=== PATIENT | female | born 1945 | race Caucasian/White ===

== ENCOUNTER → 2016-05-09 | Outpatient (REF) | payer MEDICARE, MEDICAID ==
[~2016-05-09] MED LIST: ACCU1TAB PO; ACCU5TAB7 OR; ASPI81TA7 PO; BABY81CH OR; CALC500T49 OR; CALC600T10 PO; CARV12.5 PO; COLA100C PO; CORE6.25 OR; DEXILANT PO; DRISDOL PO; ISOS20TA3 OR; LASI40TA OR; LASI40TA PO; LIPI80TA OR; LIPI80TA PO; LOPI600T OR; NITR0.4S SL; NITR4TASL SL; OMEP20CA3 PO; PLAV75TA2 OR; PLAV75TA38 PO; SUCR1TA PO; SYNT50TA PO; TYLE325T5 PO; TYLENOL #3 OR; VITA-113 SL; VITA50003 PO
== END ==
LOC: M LAB REF 16:19
PROVIDERS: ATTEND Surgery
DX: L57.0 Actinic keratosis (principal)

== ENCOUNTER → 2016-06-12 | Outpatient (REF) | payer MEDICARE, MEDICAID ==
[2016-06-12 13:09] LABS: ALBUMIN 3.6 GM/DL (3.2-5.2); ALBUMIN/GLOBULIN RATIO 1.06 (1.00-1.93); BILIRUBIN,TOTAL 0.3 MG/DL (0.2-1.0); CALCIUM LEVEL 8.8 MG/DL (8.8-10.2); CREATININE FOR GFR 1.11 MG/DL (0.55-1.02); GLOMERULAR FILTRATION RATE 51.4 (>39); POTASSIUM SERUM 4.8 MEQ/L (3.5-5.1)
== END ==
LOC: M SFHCPLAZ 08:54
PROVIDERS: ATTEND Internal Medicine
DX: I10 Essential (primary) hypertension (principal); E78.00 Pure hypercholesterolemia, unspecified; E03.9 Hypothyroidism, unspecified

== ENCOUNTER → 2016-09-02 | Outpatient (REF) | payer MEDICARE, MEDICAID ==
[~2016-09-02] MED LIST changes: -COLA100C PO; +COLA100C3 PO
[2016-09-02 18:39] LABS: BASO % 0.9 % (0.0-1.0); EOS # 0.1 K/mm3 (0.0-0.50); EOS % 2.5 % (0.0-3.0); LARGE UNSTAINED CELL # 0.1 K/mm3 (0.0-0.4); LARGE UNSTAINED CELL % 1.8 % (0.0-4.0); LYMPH # 1.7 K/mm3 (1.5-4.5); LYMPH % 33.6 % (24.0-44.0); MEAN CORPUSCULAR HEMOGLOBIN 32.5 pg (27.0-33.0); MEAN CORPUSCULAR HGB CONC 34.1 g/dl (32.0-36.5); MEAN CORPUSCULAR VOLUME 95.4 fl (80.0-96.0); MONO # 0.4 K/mm3 (0.0-0.8); MONO % 7.3 % (0.0-5.0); NEUTROPHILS # 2.6 K/mm3 (1.8-7.7); NEUTROPHILS % 53.8 % (36.0-66.0); PLATELET COUNT, AUTOMATED 205 k/mm3 (150-450); RED CELL DISTRIBUTION WIDTH 13.9 % (11.5-14.5); WHITE BLOOD COUNT 4.8 K/mm3 (4.0-10.0)
[2016-09-02 19:19] LABS: CALCIUM LEVEL 9.1 MG/DL (8.8-10.2); CREATININE FOR GFR 1.35 MG/DL (0.55-1.02); POTASSIUM SERUM 3.9 MEQ/L (3.5-5.1)
== END ==
LOC: M SFHCPLAZ 13:38
PROVIDERS: ATTEND Physician Assistant Medical
DX: R31.9 Hematuria, unspecified (principal)

== ENCOUNTER → 2016-09-02 | Outpatient (CLI) | payer MEDICARE, MEDICAID ==
[~2016-09-02] MED LIST changes: +ACET1TAB16 PO; +ASPI1TAB15 PO; -ASPI81TA7 PO; -CALC600T10 PO; +CALC600T31 PO; +CEFT500T3; -COLA100C3 PO; +COLA100C5 PO; +FOLI400T PO; +LOSA100T36 PO; +NORCOTAB PO; +PLAV1TAB2 PO; -PLAV75TA38 PO; +VITA1CAP40 PO; +VITA200038 PO; -VITA50003 PO
--- NOTE | 2016-09-02 15:37 | REP ---
CT abdomen and pelvis without IV or oral contrast: Renal stone protocol. History: Hematuria. Comparison CT study is from June 02, 2015. Findings: Digital tobacco cutter radiograph demonstrates a normal bowel gas pattern. There are clips in the right upper quadrant. Extensive vascular calcification is seen. The lung bases are essentially clear with minimal bibasilar fibrosis. The liver and spleen are normal in size, homogeneous in texture. There are clips in the gallbladder fossa. No adrenal lesion is seen on either side. There is extensive vascular calcification in the proximal renal arteries bilaterally, left more so than right. The left kidney shows mild diffuse cortical atrophy. There is an intrarenal calculus in the lower pole collecting system of the left kidney 3 mm in diameter. No hydronephrosis is seen. Segmental renal artery calcification is seen on the left. There are multiple renal cysts noted bilaterally. The largest is on the right in the upper pole measuring 3.1 cm in greatest diameter. These cysts are unchanged from comparison CT study June 02, 2015. No pancreatic abnormality is observed. No retroperitoneal mass or adenopathy is seen. The urinary bladder is moderately distended. This fills the pelvis nearly to the level of the umbilicus. The patient is status post hysterectomy. The appendix is surgically absent as well. Small and large bowel loops are otherwise unremarkable. There are degenerative changes in the lumbar spine. Impression: 1. Intrarenal calculus lower pole left kidney, 3 mm in diameter. No hydronephrosis seen. 2. Multiple bilateral renal cysts. 3. Moderately distended urinary bladder. 4. Status post appendectomy, hysterectomy, and cholecystectomy. 5. Extensive vascular calcification including the renal arteries bilaterally. Signed by Memo Potter MD 09/02/2016 05:22 P
== END ==
LOC: M RAD 14:34
PROVIDERS: ATTEND Physician Assistant Medical
DX: R31.9 Hematuria, unspecified (principal); N20.0 Calculus of kidney; N28.1 Cyst of kidney, acquired; N32.89 Other specified disorders of bladder; I70.1 Atherosclerosis of renal artery; Z98.890 Other specified postprocedural states
CPT/HCPCS: 36415; 74176; 80048; 81001; 81002; 85025; 87086; G0463

== ENCOUNTER → 2016-09-04 | Outpatient (REF) | payer MEDICARE, MEDICAID ==
[~2016-09-04] MED LIST changes: -ACET1TAB16 PO; -ASPI1TAB15 PO; +ASPI81TA7 PO; +CALC600T10 PO; -CALC600T31 PO; -CEFT500T3; +COLA100C3 PO; -COLA100C5 PO; -FOLI400T PO; -LOSA100T36 PO; -NORCOTAB PO; -PLAV1TAB2 PO; +PLAV75TA38 PO; -VITA1CAP40 PO; -VITA200038 PO; +VITA50003 PO
== END ==
LOC: M SFHCPLAZ 09:42
PROVIDERS: ATTEND Internal Medicine
DX: R31.9 Hematuria, unspecified (principal)

== ENCOUNTER 2016-09-21 17:20 | Emergency (ER) | payer MEDICARE, MEDICAID ==
[~2016-09-21] VITALS: Ht 157.5 cm; Wt 69.0 kg
[~2016-09-21 17:20] MED LIST changes: +ASPI1TAB15 PO; -ASPI81TA7 PO; -CALC600T10 PO; +CALC600T31 PO; -COLA100C3 PO; +COLA100C5 PO; +PLAV1TAB2 PO; -PLAV75TA38 PO; +VITA1CAP40 PO; -VITA50003 PO
[2016-09-21] MEDS ORDERED: LOSA100T36 PO (17:42)
[2016-09-21] MEDS ORDERED: FOLI400T PO (17:42)
[2016-09-21] MEDS ORDERED: VITA200038 PO (17:42)
[2016-09-21] MEDS ORDERED: MORPHINE 4 MG/ML 1ML SYRINGE SQ ONE (18:45)
[2016-09-21] MEDS ORDERED: ONDANSETRON 4 MG ORAL DISINTEGRATING TAB (S0181) PO ONE (18:45)
[2016-09-21] MEDS ORDERED: ACET1TAB16 PO (19:11)
[2016-09-21] MEDS ORDERED: CEFT500T3 (19:11)
[2016-09-21] MEDS ORDERED: NORCOTAB PO (22:39)
[2016-09-21 22:45] VITALS: BP 185/77
[2016-09-21] MEDS ORDERED: NORCO 5/325MG TABLET (BULK FOR ED) PO ONE (22:45)
--- NOTE | 2016-09-22 12:12 | REP ---
AP PELVIS AND RIGHT HIP: 09/21/2016. Comparison: CT abdomen and pelvis 09/02/2016. Clinical history: Atraumatic pain. Findings: The AP pelvis shows heavy calcifications aorta and common iliac vessels and there is heavy calcification in the common femoral arteries and proximal superficial femoral arteries in the groin and thigh. Pelvic ring is intact. Pubic rami, symphysis pubis, SI joints, iliac wings and acetabuli were unremarkable. Hip joint space is symmetric and fairly well preserved. Femoral heads, necks trochanters and subtrochanteric femurs unremarkable. AP and frog-leg view of the hip joint space on the right side without significant narrowing. There is no rim osteophyte in the femoral head and only a tiny one on the acetabular roof. No destructive lesion or fracture. Impression: 1. Heavy vascular calcification iliac and femoral arteries without evidence of fracture, focal bone lesion or AVN. 2. Hip joint space is preserved with minor degenerative changes at the acetabular roof. Signed by Kishore Gale MD 09/22/2016 09:37 A
== END 2016-09-21 22:51 | disposition home or self-care (01) ==
LOC: EDBD 17:20 → M ED 20:16
DX: M25.551 Pain in right hip (principal); I10 Essential (primary) hypertension; I25.10 Atherosclerotic heart disease of native coronary artery without angina pectoris; J44.9 Chronic obstructive pulmonary disease, unspecified; D64.9 Anemia, unspecified; M48.06 Spinal stenosis, lumbar region; E78.5 Hyperlipidemia, unspecified; Z95.5 Presence of coronary angioplasty implant and graft; Z88.8 Allergy status to other drugs, medicaments and biological substances; Z88.1 Allergy status to other antibiotic agents; Z88.0 Allergy status to penicillin; Z88.2 Allergy status to sulfonamides; Z79.899 Other long term (current) drug therapy; Z79.82 Long term (current) use of aspirin

== ENCOUNTER → 2016-10-08 | Outpatient (REF) | payer MEDICARE, MEDICAID ==
[~2016-10-08] MED LIST changes: +ACET1TAB16 PO; +CEFT500T3; +FOLI400T PO; +LOSA100T36 PO; +NORCOTAB PO; +VITA200038 PO
[2016-10-08 11:29] LABS: MEAN CORPUSCULAR HEMOGLOBIN 32.5 pg (27.0-33.0); MEAN CORPUSCULAR HGB CONC 33.9 g/dl (32.0-36.5); MEAN CORPUSCULAR VOLUME 96.1 fl (80.0-96.0); RED CELL DISTRIBUTION WIDTH 13.6 % (11.5-14.5); WHITE BLOOD COUNT 6.1 K/mm3 (4.0-10.0)
[2016-10-08 11:48] LABS: ALBUMIN 3.8 GM/DL (3.2-5.2); ALBUMIN/GLOBULIN RATIO 1.12 (1.00-1.93); BILIRUBIN,TOTAL 0.4 MG/DL (0.2-1.0); CALCIUM LEVEL 9.3 MG/DL (8.8-10.2); CREATININE FOR GFR 1.25 MG/DL (0.55-1.02); GLOMERULAR FILTRATION RATE 44.8 (>39); POTASSIUM SERUM 4.3 MEQ/L (3.5-5.1); TOTAL PROTEIN 7.2 GM/DL (6.4-8.2)
== END ==
LOC: M SFHCPLAZ 08:40
PROVIDERS: ATTEND Internal Medicine
DX: E03.9 Hypothyroidism, unspecified (principal); I12.9 Hypertensive chronic kidney disease with stage 1 through stage 4 chronic kidney disease, or unspecified chronic kidney disease; N18.3 Chronic kidney disease, stage 3 (moderate); D63.1 Anemia in chronic kidney disease
CPT/HCPCS: 36415; 80053; 84443; 85027; 93005; G0463

== ENCOUNTER 2016-10-13 11:26 | Inpatient (IN) | payer MEDICARE, MEDICAID ==
[~2016-10-13] VITALS: Ht 154.9 cm; Wt 68.6 kg
[2016-10-13] MEDS ORDERED: LR 1,000 ML IV ONE (11:30)
[2016-10-13] MEDS ORDERED: CLINDAMYCIN INJ 900MG/6ML VIAL As Ordered ONE (13:06)
[2016-10-13] MEDS ORDERED: MIDAZOLAM INJ 2 MG/2 ML VIAL (J2250) As Ordered ONE (13:12)
[2016-10-13] MEDS ORDERED: fentaNYL 100 MCG/2 ML INJECTION (J3010) As Ordered ONE ×2 (13:12→15:22)
[2016-10-13] MEDS ORDERED: ceFAZolin SOD 1 GM in D5W MINI-BAG PLUS 50 ML IV ONE (13:15)
[2016-10-13] MEDS ORDERED: BUPIVACAINE/EPIN 0.25% 30 ML VIAL As Ordered ONE (13:37)
[2016-10-13] MEDS ORDERED: VANCOMYCIN 1000 MG/20 ML VIAL (J3370) As Ordered ONE (13:42)
[2016-10-13] MEDS ORDERED: VANCOMYCIN HCL 1,000 MG, VIAL MATE ADAPTER 1 EACH in D5W 250 ML IV ONE (14:00)
--- NOTE | 2016-10-13 14:15 | HPE ---
DATE OF ADMISSION: 10/13/2016 CHIEF COMPLAINT: Right hip pain. HISTORY: This is a 70-year-old woman who has had some right hip pain ongoing for a few months that got worse two or three weeks ago when she was lifting something. MRI scan was consistent with a stress fracture of the femoral neck as well some avascular necrosis (AVN). She very much wanted to proceed with open reduction internal fixation or percutaneous pinning of the right hip. She did not wish to proceed with hip replacement, which is what I recommended. She is getting around with a walker. PAST MEDICAL HISTORY: Notable for hypothyroidism, hypertension, hypercholesterolemia, lumbar spinal stenosis, chronic airway obstruction, myocardial infarction ([place]), coronary artery disease, anemia, osteoporosis, mesenteric ischemia. PAST SURGICAL HISTORY: Includes appendectomy, exploratory surgery for pelvic pain, CARLIE-BSO, cholecystectomy, heart catheterization, colonoscopy, right scapular lesion resection, cataracts, stents, celiac artery stent. FAMILY HISTORY: Father and mother , son alive with heart disease, daughter alive. SOCIAL HISTORY: She is a former smoker. She does not use alcohol or recreational drugs. She is . MEDICATIONS: Include losartan, levothyroxine, omeprazole, Lasix, Coreg, vitamin B12, Drisdol, aspirin, meclizine, nitroglycerin, ProAir HFA, Colace, calcium, Nasonex, Lipitor, Tylenol with Codeine. The patient has been on Plavix recently and has stopped it. ALLERGIES: We have listed - TRICOR, IBRUPROFEN, VIOXX, BIAXIN, LEVAQUIN, FOSAMAX, AUGMENTIN, SULFA. REVIEW OF SYSTEMS: She denies any current chest pain, shortness of breath. Denies any skin rashes. Denies any dental abnormalities. Respiratory: Denies any cough, but does have some dyspnea on exertion. Gastrointestinal: Denies any abdominal pain. Urinary: Denies dysuria. Musculoskeletal: Has had this right hip pain ongoing for some time. Neurologic: Denies any focal weakness or sensory loss. Hematologic: Is on Plavix. Gets some easy bruisability. PHYSICAL EXAMINATION: Alert, oriented, in no acute distress. HEENT: Extraocular muscles intact. Pharynx benign. Cardiac: Regular rate and rhythm. Lungs: Clear to auscultation. Abdomen: Soft, nontender. Right hip is irritable to rotation and flexion. She has symmetric leg length. She moves her feet and toes well and has grossly intact sensation distally. MRI scan showed evidence of AVN of the right hip with a compression side femoral neck stress fracture. IMPRESSION: Right hip AVN with stress fracture. I believe that her pain from the AVN has been bothering for her months and that the stress fracture pain has been over the past 2-3 weeks. I had recommended and again today talked to her about a total hip replacement, which I think would be the most definitive thing and would probably provide her with more pain relief. She is adamant that we just fix the fracture with the screws. She says she does not want to go through a hip replacement. She has known people who have had to do that and does not think she can tolerate it. The pinning would be a smaller surgery. Per her request, will proceed with percutaneous pinning of the right hip with three cannulated screws. I will likely use a drill before placing these screws to try to decompress some of the femoral head marrow, perhaps providing her with some pain relief. She understands the nature this and the risks of bleeding, infection, damage to nerves, vessels, persistent pain, malunion, nonunion, loss of reduction, blood clots, medical problems, among others. A preop clearance was obtained.
[2016-10-13] MEDS ORDERED: ePHEDrine SULFATE 25 MG/5 ML(5MG/ML) SYRINGE As Ordered ONE (14:24)
[2016-10-13] MEDS ORDERED: HYDROmorphone HCL 2 MG/ML 1ML VIAL (J1170) As Ordered ONE (14:36)
[2016-10-13] MEDS ORDERED: MORPHINE 1MG/ML IN 0.9% NACL 100ML IV BAG As Ordered ONE (15:04)
--- NOTE | 2016-10-13 15:19 | REP ---
Right hip: Two views. History: Fracture of the hip. 43 seconds of fluoroscopy time is reported. Findings: AP and frog-leg views of the right hip document thinning of the right proximal femur for a femoral neck fracture. Signed by Memo Potter MD 10/13/2016 04:25 P
[2016-10-13] MEDS: fentaNYL 100 MCG/2 ML INJECTION (J3010) IV PRN ×4 (15:25→15:55)
--- NOTE | 2016-10-13 15:27 | CR.PDOC ---
[facility] Consultation Consultation CONSULTATION REPORT FOR: Dr Rooney REASON FOR CONSULTATION: Medical Management DATE OF VISIT: 10/13/16 ATTENDING: Dr. Grover. PCP: Dr Foley HPI: 70year oldF with a past medical history significant for stress fracture Rt femur, POD 0 Rt hip ORIF as per Dr Rooney. Her only complaint at this time is pain , seen in PACU. Denies any fevers, chills, weakness, fatigue, Headache, Chest Pain, Shortness of breath, cough, palpitations, abdominal pain, N/V/D or changes in bowel or bladder habits. PMHx: CAD/[place]/DIANA. [place] hypothyroid HTN HLD Lumbar SS COPD CKD3 Anemia in CKD osteoporosis mesenteric ischemia PVD GERD PSHX: appendectomy exploratory laparotomy hysterectomy cholecystectomy Cardia Cath 05/15. Chronic occluded RCA, DIANA LCx. colonoscopy cataract Celiac artery stent SOCHX: Resides in: [facility] Marital Status: Kids: 2 Employment: retired Tobacco use: denies ETOH: denies FAMHX: Children: Alive, well Unexpected deaths due to medical reasons: None. ROS: As noted in HPI, otherwise 11pt ROS of systems reviewed and unremarkable. PE: GEN: 70yoF, appears stated age. Well-nourished, well developed. No acute distress. Alert and oriented x 3. Pleasant, interactive. HEENT: Normocephalic, atraumatic. Pupils are equal, round, and reactive to light. Extraocular movements are intact. No nystagmus appreciated. Sclera are nonicteric. Conjunctiva without injection. Nose midline. Nasal turbinates without bogginess. EACs both patent BL. TMs both visualized and brown with good cone of light, no bulging or erythema. No facial asymmetry. Moist mucous membranes. Dentition fair. Pharynx pink and moist, no cobblestoning. Neck supple , trachea midline. No lymphadenopathy or thyromegaly appreciated. CHEST: Regular rate and rhythm, +S1, +S2 LUNGS: Clear to auscultation bilaterally. No wheezes, rales, or rhonchi. Breathing appears symmetric and easy. Patient is speaking in full sentences. No accessory muscle use. ABD: Round, soft, non-tender, non-distended. +Bowel sounds throughout. No rebound or guarding. No costovertebral angle tenderness. EXT: Pulses 2+ bilaterally dorsalis pedis and radial. No lower extremity edema appreciated. SKIN: [place], dry, warm. Capillary refill <2sec. No rashes. Dressing Rt hip NEURO: Alert and oriented x 3. Cranial nerves III-XII are intact. A&P: 70year oldF with a past medical history significant for stress fracture Rt femur, POD 0 Rt hip ORIF as per Dr Rooney 1. POD 0 Rt hip ORIF as per Orthopedics. PT/OT as per Ortho. IVF at 70cc/hr Pain control as per Orthopedics. DVT prophylaxis as per Orthopedics. Plavix ordered as per Orthopedics. Bowel care as per Orthopedics. 2. CAD/KY/DIANA. Continue Coreg with hold parameters. Plavix as per Orthopedics as above. ASA 81 on hold. 3. HTN. BP s/p pain medication 168/73. Lasix and ARB on hold temporarily. Likely restart in AM. 4. HLD. Continue statin. 5. Hypothyroid. Continue supplement. TSH WNL 12/14. 6. CKD3. CMP in AM. Baseline 1.1-1.3. 7. Anemia in CKD. Baseline 10.7. Check AM labs. 8. GERD. Continue Prilosec. DVT prophylaxis. as above. Thank you for your consultation. We will continue to follow along with you. Vital Signs/I&O Vital Signs Date Time Temp Pulse Resp B/P (MAP) Pulse Ox O2 Delivery O2 Flow Rate FiO2 10/13/16 15:16 64 16 186/74 (111) 99 Nasal Cannula 2 10/13/16 15:03 97.5 Laboratory Data CBC/BMP Item Value Date Time Sodium Level 140 MEQ/L 10/08/16 0915 Potassium Level 4.3 MEQ/L 10/08/16 0915 Chloride Level 104 MEQ/L 10/08/16 0915 Carbon Dioxide Level 29 MEQ/L 10/08/16 0915 Anion Gap 7 MEQ/L L 10/08/16 0915 Blood Urea Nitrogen 22 MG/DL H 10/08/16 0915 Creatinine 1.25 MG/DL H 10/08/16 0915 Glomerular Filtration Rate 44.8 10/08/16 0915 Fasting Glucose 98 MG/DL 10/08/16 0915 Calcium Level 9.3 MG/DL 10/08/16 0915 Total Bilirubin 0.4 MG/DL 7/12/17 0915 Aspartate Amino Transf (AST/SGOT) 16 U/L 10/08/16914 Alanine Aminotransferase (ALT/SGPT) 18 U/L 10/08/16914 Alkaline Phosphatase 92 U/L 10/08/16914 Total Protein 7.2 GM/DL 10/08/16914 Albumin 3.8 GM/DL 10/08/16914 Albumin/Globulin Ratio 1.12 10/08/16914 White Blood Count 6.1 K/mm3 10/08/16914 Red Blood Count 3.29 M/mm3 L 10/08/16914 Hemoglobin 10.7 g/dl L 10/08/16914 Hematocrit 31.6 % L 10/08/16914 Mean Corpuscular Volume 96.1 fl H 10/08/16914 Mean Corpuscular Hemoglobin 32.5 pg 10/08/16914 Mean Corpuscular Hemoglobin Concent 33.9 g/dl 10/08/16914 Red Cell Distribution Width 13.6 % 10/08/16914 Platelet Count 231 k/mm3 10/08/16914 Allergies Coded Allergies: Ibuprofen (Verified Allergy, Severe, ITCHING THROAT CLOSES, 10/13/16) NSAIDs (Verified Allergy, Severe, ITCHING THROAT CLOSES, 10/13/16) Sulfa Drugs (Verified Allergy, Severe, ITCHING THROAT CLOSES, 10/13/16) Fenofibrate (Verified Allergy, Intermediate, ACHING, 10/13/16) Quinolones (Verified Allergy, Intermediate, ACHING, 10/13/16) Rofecoxib (Verified Allergy, Intermediate, ACHES, 10/13/16) Clarithromycin (Verified Adverse Reaction, Intermediate, VOMITING, 10/13/16 ) Clavulanic Acid (Verified Adverse Reaction, Intermediate, VOMITING, ) Penicillins (Verified Adverse Reaction, Intermediate, VOMITING, 10/13/16) Alendronate (Verified Adverse Reaction, Unknown, vomiting, 10/13/16) Home Medications Scheduled Aspirin (Aspirin) 81 Mg Tab, 81 MG PO QHS, (Reported) Atorvastatin Calcium (Lipitor) 80 Mg Tab, 80 MG PO DAILY, (Reported) Carvedilol (Carvedilol) 12.5 Mg Tab, 12.5 MG PO BID, (Reported) Cholecalciferol (Vitamin D-3) 2,000 Unit Tab, 2,000 UNIT PO QWEEK, (Reported) Clopidogrel Bisulfate (Plavix) 75 Mg Tab, 75 MG PO DAILY, (Reported) Folic Acid (Folic Acid) 400 Mcg Tab, 400 MCG PO DAILY, (Reported) Furosemide (Lasix) 40 Mg Tab, 40 MG PO DAILY, (Reported) Levothyroxine Sodium (Synthroid) 50 Mcg Tab, 75 MCG PO 0700, (Reported) Losartan Potassium (Losartan Potassium) 100 Mg Tab, 100 MG PO DAILY, (Reported) Omeprazole (Omeprazole) 20 Mg Cap, 20 MG PO QHS, (Reported) Scheduled PRN Acetaminophen (Tylenol) 325 Mg Tab, 650 MG PO Q4HP PRN for MILD PAIN OR FEVER, ( Reported) Acetaminophen/Codeine (Acetaminophen/Codeine 300-30 mg) 1 Tab Tab, 1 TAB PO Q6H PRN for PAIN, #20 (Reported) MDD = 4 Nitroglycerin (Nitrostat) 0.4 Mg Subl, 0.4 MG SL Q5MP PRN for ANGINA, (Reported) Miscellaneous Medications Cefuroxime Axetil (Ceftin) 500 Mg Tab, #10 (Reported) Melany Yarbrough Oct 13, 2016 15:27
[2016-10-13] MEDS ORDERED: ONDANSETRON 4MG/2ML VIAL (J2405) As Ordered ONE (15:32)
[2016-10-13] MEDS ORDERED: ACETAMINOPHEN TAB 650MG DOSE (2X325MG) PO PRN (15:45)
[2016-10-13] MEDS ORDERED: METOCLOPRAMIDE INJ 10MG/2ML VIAL (J2765) IV PRN (15:45)
[2016-10-13] MEDS ORDERED: LR 1,000 ML IV SCH (15:45)
[2016-10-13] MEDS ORDERED: FLEET ENEMA PR PRN (15:45)
[2016-10-13] MEDS ORDERED: PERCOCET 5MG/325MG TAB PO PRN (15:45)
[2016-10-13] MEDS ORDERED: traMADol 50 MG TAB PO PRN (15:45)
[2016-10-13] MEDS ORDERED: MEPERIDINE INJ 25 MG/ML VIAL (J2175) IV PRN (15:45)
[2016-10-13] MEDS ORDERED: MORPHINE 4 MG/ML 1ML SYRINGE IV PRN (15:45)
[2016-10-13] MEDS: LR 1,000 ML IV SCH (15:45)
[2016-10-13] MEDS ORDERED: MORPHINE 2 MG/ML 1ML SYRINGE IV PRN (15:45)
[2016-10-13] MEDS ORDERED: ONDANSETRON 4MG/2ML VIAL (J2405) IV PRN ×3 (15:45→16:30)
[2016-10-13] MEDS ORDERED: diphenhydrAMINE INJ 50MG/ML VIAL (J1200) IV PRN (16:30)
[2016-10-13] MEDS ORDERED: MORPHINE 1MG/ML IN 0.9% NACL 100ML IV BAG IV PRN (16:30)
[2016-10-13] MEDS ORDERED: NALBUPHINE HCL 10 MG/ML AMP (J2300) IV PRN (16:30)
[2016-10-13] MEDS ORDERED: EPIDURAL/PCA KEYS XX PRN (16:30)
[2016-10-13] MEDS ORDERED: NALOXONE INJ 0.4 MG/1 ML VIAL (J2310) IV PRN (16:30)
[2016-10-13 16:40] VITALS: BP 163/70
[2016-10-13 17:10] VITALS: BP 157/73
--- NOTE | 2016-10-13 17:54 | RO ---
DATE OF PROCEDURE: 10/13/2016 PREOPERATIVE DIAGNOSIS: Right hip femoral neck fracture and avascular necrosis (AVN). POSTOPERATIVE DIAGNOSIS: Right hip femoral neck fracture and avascular necrosis (AVN). PROCEDURE: Open reduction internal fixation (ORIF) right hip with three cannulated screws. SURGEON: Dr. Shant Rooney PLATE PAINTER: ANESTHESIA: General. ESTIMATED BLOOD LOSS: 10 mL. COMPLICATIONS: None. INDICATIONS: A 70-year woman who has had some persistent right hip pain. Recent MRI scan showed evidence of AVN and what appeared to be a stress fracture of her femoral neck. She wished to go ahead with surgical treatment. She understood the nature of this, the risks of bleeding, infection, damage to nerves, vessels, persistent pain, malunion, nonunion, loss of reduction, blood clots, medical problems, among others. Understood the alternatives of hip replacement surgery which I had advised. DESCRIPTION OF PROCEDURE: The patient was taken to the operating room and placed in the supine position on the fracture table after general anesthesia was induced. The right hip was prepped and draped in the usual sterile fashion. A C-arm was used to identify the incision site with a pin. Then made about an inch long incision over the lateral aspect of thigh and bluntly dissected down through subcutaneous tissue. I incised the fascia martin and then pulled the bullet-shaped guide against the lateral aspect of the femur. I then advanced in three pins parallel with each other through the guide with one being inferior, two superior and these were parallel and brought up just to the subchondral bone of the femoral head. I then confirmed on AP and lateral views that the pins were in good position. Good spacing noted. I then decided to drill with the cannulated drill over the guidewires up to the subchondral bone, hoping that this may decompress some of the AVN and may help her with symptoms. I measured the pins. I then placed appropriate length shorter threads, 7.3 cannulated screws, advanced them up under power and then hand tightened them. I was overall very pleased with the position of the screws and the fracture did not shift. The depth of the screws was appropriate. Final C-arm images were saved. I then irrigated, closed the fascia martin with #1 Vicryl suture, the subcu with #2-0 Vicryl and the skin with josh. Plan will be routine postop, IV antibiotics, physical therapy, will do partial weightbearing for now and hopefully get her home in a day or two.
[2016-10-13 18:10] VITALS: BP 175/76
[2016-10-13 19:10] VITALS: BP 152/67
[2016-10-13 20:10] VITALS: BP 164/81
[2016-10-13 21:10] VITALS: BP 178/83
[2016-10-13] MEDS: CARVedilol 12.5 MG TAB PO SCH (21:31)
[2016-10-13] MEDS: OMEPRAZOLE 20 MG CAP PO SCH (21:31)
[2016-10-14 01:10] VITALS: BP 134/61
[2016-10-14] MEDS ORDERED: VANCOMYCIN HCL 1,000 MG, VIAL MATE ADAPTER 1 EACH in D5W 250 ML IV ONE (02:00)
[2016-10-14 06:00] VITALS: BP 142/64
[2016-10-14] MEDS: LR 1,000 ML IV SCH (06:03)
[2016-10-14 06:29] LABS: MEAN CORPUSCULAR HGB CONC 33.8 g/dl (32.0-36.5); MEAN CORPUSCULAR VOLUME 94.8 fl (80.0-96.0); RED CELL DISTRIBUTION WIDTH 13.3 % (11.5-14.5); WHITE BLOOD COUNT 8.2 K/mm3 (4.0-10.0)
[2016-10-14 06:41] LABS: INR 1.05
[2016-10-14 06:42] LABS: ALBUMIN 3.1 GM/DL (3.2-5.2); ALBUMIN/GLOBULIN RATIO 0.86 (1.00-1.93); BILIRUBIN,TOTAL 0.3 MG/DL (0.2-1.0); CALCIUM LEVEL 8.9 MG/DL (8.8-10.2); CREATININE FOR GFR 1.19 MG/DL (0.55-1.02); GLOMERULAR FILTRATION RATE 47.5 (>39); POTASSIUM SERUM 4.7 MEQ/L (3.5-5.1); TOTAL PROTEIN 6.7 GM/DL (6.4-8.2)
[2016-10-14] MEDS ORDERED: LEVOTHYROXINE 50MCG TABLET (0.05MG) PO SCH (07:00)
[2016-10-14 08:00] VITALS: BP 154/67
[2016-10-14] MEDS: MOM 30ML SUSPENSION UDC PO SCH (08:34)
[2016-10-14] MEDS: MIRALAX *UNIT DOSE* 17GM PACKET PO SCH ×2 (08:34→08:41)
[2016-10-14] MEDS: ATORVASTATIN 20 MG TAB PO SCH (08:35)
[2016-10-14] MEDS: CARVedilol 12.5 MG TAB PO SCH ×2 (08:35→20:55)
[2016-10-14] MEDS: SENOKOT S TAB PO SCH ×2 (08:35→20:54)
[2016-10-14] MEDS: CLOPIDOGREL 75 MG TAB PO SCH (08:36)
[2016-10-14] MEDS: LEVOTHYROXINE 75MCG TABLET (0.075MG) PO SCH (08:36)
[2016-10-14] MEDS ORDERED: ACETAMINOPH W/CODEINE #3 TAB UD PO PRN (09:00)
[2016-10-14] MEDS: ONDANSETRON 4 MG TAB (S0181) PO PRN ×2 (09:40→13:23)
--- NOTE | 2016-10-14 11:25 | REP ---
Right hip two views: There are 3 pins stabilizing a transverse fracture of the femoral neck in satisfactory position alignment on both views. Skin josh are incidentally noted. Signed by Jesu Ty MD 10/14/2016 11:16 A
[2016-10-14] MEDS: ACETAMINOPH W/CODEINE #3 TAB UD PO PRN ×3 (13:23→22:03)
[2016-10-14 14:00] VITALS: BP 149/65
--- NOTE | 2016-10-14 16:23 | IPN ---
DATE: 10/13/2016 Ms. Morales is feeling well. Pain is reasonably controlled. There are no complaints of pain, chest pain. No shortness of breath. She is tolerating diet. Has not had a bowel movement yet. Does not feel a need to. Temperature 98.1, pulse 69, respirations 18, blood pressure 149/65, 97% on 2 liters. Intake and output notable for a positive fluid balance of 400. No bowel movements noted. She is awake, appropriately interactive, pleasant conversant. Heart is distant sounding, normal S1, S2. Breathing is symmetrical and rested. Abdomen soft, doughy, nontender. White cell count 8.2, hemoglobin 9.5, platelets of 205. INR 1.0. BUN 21, creatinine 1.19. ASSESSMENT: This is a 70-year-old, postoperative day #1, from right hip open reduction, internal fixation (ORIF). PLAN: 1. Orthopedics. Physical therapy (PT)/occupational therapy (OT) per orthopedics, pain management per orthopedics, deep vein thrombosis (DVT) prophylaxis per orthopedics. Currently they have chosen to continue with Plavix. Bowel care per orthopedics. 2. Coronary artery disease status post drug-eluting stents. Continue with Coreg, Plavix Aspirin is currently on hold. 3. Hypertension. Patient has Lasix and angiotensin receptor ely (ARB) on hold. Will re-evaluate in the morning, as the patient is not taking significant amounts orally. 4. Patient has hyperlipidemia, on statin, which is continued in the perioperative period. 5. Patient has hypothyroidism. 6. Patient has chronic kidney disease, stage III, with baseline creatinine in this range. Will again hold angiotensin-converting enzyme (WILTON) inhibitor and Lasix. 7. Patient has anemia of chronic kidney disease. 8. Patient has gastroesophageal reflux disease (GERD).
[2016-10-14] MEDS: OMEPRAZOLE 20 MG CAP PO SCH (20:54)
[2016-10-14 22:00] VITALS: BP 149/68
[2016-10-15] MEDS: ACETAMINOPH W/CODEINE #3 TAB UD PO PRN ×2 (03:30→07:50)
[2016-10-15 06:00] VITALS: BP 146/67
[2016-10-15] MEDS: LEVOTHYROXINE 75MCG TABLET (0.075MG) PO SCH (06:20)
[2016-10-15 06:27] LABS: INR 0.97
[2016-10-15] MEDS ORDERED: ACET1TAB16 PO (08:01)
[2016-10-15] MEDS: MOM 30ML SUSPENSION UDC PO SCH (08:45)
[2016-10-15] MEDS: SENOKOT S TAB PO SCH (08:45)
[2016-10-15 08:46] VITALS: BP 146/67
[2016-10-15] MEDS: CLOPIDOGREL 75 MG TAB PO SCH (08:46)
[2016-10-15] MEDS: CARVedilol 12.5 MG TAB PO SCH (08:46)
[2016-10-15] MEDS: MIRALAX *UNIT DOSE* 17GM PACKET PO SCH (08:46)
[2016-10-15] MEDS: ATORVASTATIN 20 MG TAB PO SCH (08:46)
--- NOTE | 2016-10-18 22:13 | DSES ---
DATE OF ADMISSION: 10/13/2016 DATE OF DISCHARGE: 10/15/2016 ADMITTING DIAGNOSIS: Right femoral neck fracture and AVN. OTHER DIAGNOSES: 1. Coronary artery disease. 2. Hypertension. 3. Hypothyroidism. 4. Chronic obstructive pulmonary disease (COPD). 5. Chronic kidney disease stage III. 6. Anemia. 7. Mesenteric ischemia. 8. Peripheral vascular disease. 9. Gastric reflux disease. DISCHARGE DIAGNOSIS: Right femoral neck fracture and AVN status post open reduction internal fixation with three cannulated screws. ATTENDING PHYSICIAN: Shant Rooney MD. HISTORY: This is a pleasant 70-year-old female patient with progressively worsening hip pain on the left side that had been going on for a few months with increasing symptoms 2-3 weeks prior to her visit at the orthopedic clinic. It was then noted that she had sustained a femoral neck stress fracture noted on her MRI. She was admitted for open reduction internal fixation of her right femoral neck fracture with three cannulated screws. OPERATION PERFORMED: Open reduction internal fixation of her right femoral neck fracture with three cannulated screws. HOSPITAL COURSE: The patient was admitted on day of surgery, underwent an open reduction internal fixation with three cannulated screws of her right hip fracture. The procedure was well tolerated by the patient without incident. Her postoperative course was unremarkable. She did well. Her pain was controlled on day of discharge. She was partial weightbearing on her right lower extremity. She will use oral pain medication for pain control. She will use Coumadin and thromboembolism deterrent (RONALD) stockings for 30 days postoperative for deep venous thrombosis (DVT) prophylaxis. She will resume her preoperative medications and diet. She was given instructions to include, but not limited to wound monitoring, activity limitations and weightbearing status. She will followup in our office in 10-14 days for surgical followup. Please refer to the medical record for further details.
== END 2016-10-15 12:25 | disposition home or self-care (01) | DRG 481 ==
LOC: M OR 11:26 → EDSTATUS 13:00 → M MS5PR 16:35
PROVIDERS: ADMIT Orthopaedic Surgery; ATTEND Orthopaedic Surgery
PROC: 0QS604Z Reposition Right Upper Femur with Internal Fixation Device, Open Approach (ICD-10-PCS; principal; 2016-10-13 13:00)
DX: M84.351A Stress fracture, right femur, initial encounter for fracture (principal); M87.051 Idiopathic aseptic necrosis of right femur; E03.9 Hypothyroidism, unspecified; E78.00 Pure hypercholesterolemia, unspecified; J44.9 Chronic obstructive pulmonary disease, unspecified; I25.2 Old myocardial infarction; I25.10 Atherosclerotic heart disease of native coronary artery without angina pectoris; Z87.891 Personal history of nicotine dependence; Z79.899 Other long term (current) drug therapy; Z79.82 Long term (current) use of aspirin; Z88.2 Allergy status to sulfonamides; Z88.8 Allergy status to other drugs, medicaments and biological substances; N18.3 Chronic kidney disease, stage 3 (moderate); D63.1 Anemia in chronic kidney disease; I12.9 Hypertensive chronic kidney disease with stage 1 through stage 4 chronic kidney disease, or unspecified chronic kidney disease; I73.9 Peripheral vascular disease, unspecified; K21.9 Gastro-esophageal reflux disease without esophagitis

== ENCOUNTER → 2016-12-18 | Outpatient (REF) | payer MEDICARE, MEDICAID ==
[2016-12-18 12:56] LABS: ALBUMIN 3.4 GM/DL (3.2-5.2); ALBUMIN/GLOBULIN RATIO 1.03 (1.00-1.93); BILIRUBIN,TOTAL 0.3 MG/DL (0.2-1.0); CALCIUM LEVEL 9.5 MG/DL (8.8-10.2); CREATININE FOR GFR 1.18 MG/DL (0.55-1.02); GLOMERULAR FILTRATION RATE 47.8 (>39); MAGNESIUM LEVEL 2.1 MG/DL (1.8-2.4); POTASSIUM SERUM 4.3 MEQ/L (3.5-5.1); TOTAL PROTEIN 6.7 GM/DL (6.4-8.2)
[2016-12-18 13:31] LABS: MEAN CORPUSCULAR HEMOGLOBIN 31.7 pg (27.0-33.0); MEAN CORPUSCULAR HGB CONC 33.6 g/dl (32.0-36.5); MEAN CORPUSCULAR VOLUME 94.2 fl (80.0-96.0); RED CELL DISTRIBUTION WIDTH 13.5 % (11.5-14.5); WHITE BLOOD COUNT 4.2 K/mm3 (4.0-10.0)
== END ==
LOC: M SFHCPLAZ 08:42
PROVIDERS: ATTEND Internal Medicine
DX: D64.9 Anemia, unspecified (principal); I10 Essential (primary) hypertension; I25.10 Atherosclerotic heart disease of native coronary artery without angina pectoris; E03.9 Hypothyroidism, unspecified

== ENCOUNTER → 2016-12-19 | Outpatient (CLI) | payer MEDICARE, MEDICAID ==
[2016-12-19 19:18] LABS: PERCENT SATURATION 24.5 % (13.2-45.0)
== END ==
LOC: M WUC 15:38
PROVIDERS: ATTEND Internal Medicine Cardiovascular Disease
DX: D64.9 Anemia, unspecified (principal)

== ENCOUNTER → 2016-12-23 | Outpatient (CLI) | payer MEDICARE, MEDICAID ==
[2016-12-23 17:41] LABS: FOLATE > 24.0 NG/ML (>5.4); VITAMIN B12 LEVEL 326 PG/ML (247-911)
[2016-12-23 18:04] LABS: BASO % 0.6 % (0.0-1.0); EOS # 0.1 10^3/uL (0.0-0.50); EOS % 2.3 % (0.0-3.0); IMMATURE GRANULOCYTE % 0.4 % (0-0); LYMPH # 1.8 10^3/uL (1.5-4.5); MEAN CORPUSCULAR HEMOGLOBIN 30.8 pg (27.0-33.0); MEAN CORPUSCULAR HGB CONC 32.3 g/dl (32.0-36.5); MEAN CORPUSCULAR VOLUME 95.5 fl (80.0-96.0); MONO # 0.5 10^3/uL (0.0-0.8); MONO % 10.1 % (0.0-5.0); NEUTROPHILS # 2.7 10^3/uL (1.8-7.7); NEUTROPHILS % 51.6 % (36.0-66.0); PLATELET COUNT, AUTOMATED 228 10^3/uL (150-450); RED CELL DISTRIBUTION WIDTH 13.6 % (11.5-14.5); RETIC HEMOGLOBIN EQUIVALENT 34.3 pg (24-36); RETICULOCYTE % 1.2 % (0.5-1.5); WHITE BLOOD COUNT 5.1 10^3/uL (4.0-10.0)
== END ==
LOC: M WUC 13:40
PROVIDERS: ATTEND Internal Medicine Cardiovascular Disease
DX: D64.9 Anemia, unspecified (principal)

== ENCOUNTER → 2017-02-12 | Outpatient (CLI) | payer MEDICARE, MEDICAID ==
[~2017-02-12] MED LIST changes: +CEFT250T8 PO
[2017-02-12 13:08] LABS: MEAN CORPUSCULAR HEMOGLOBIN 30.2 pg (27.0-33.0); MEAN CORPUSCULAR VOLUME 94.2 fl (80.0-96.0); PLATELET COUNT, AUTOMATED 214 10^3/uL (150-450); RED CELL DISTRIBUTION WIDTH 13.7 % (11.5-14.5); WHITE BLOOD COUNT 4.2 10^3/uL (4.0-10.0)
[2017-02-12 13:30] LABS: ALBUMIN 3.6 GM/DL (3.2-5.2); ALBUMIN/GLOBULIN RATIO 1.09 (1.00-1.93); BILIRUBIN,TOTAL 0.4 MG/DL (0.2-1.0); CREATININE FOR GFR 1.42 MG/DL (0.55-1.02); GLOMERULAR FILTRATION RATE 38.6 (>39); POTASSIUM SERUM 4.1 MEQ/L (3.5-5.1); TOTAL PROTEIN 6.9 GM/DL (6.4-8.2)
== END ==
LOC: M WUC 08:51
PROVIDERS: ATTEND Internal Medicine
DX: I10 Essential (primary) hypertension (principal); D63.1 Anemia in chronic kidney disease; N18.9 Chronic kidney disease, unspecified

== ENCOUNTER 2017-02-21 09:37 | Emergency (ER) | payer MEDICARE, MEDICAID ==
[~2017-02-21] VITALS: Ht 157.5 cm; Wt 66.7 kg
[~2017-02-21 09:37] MED LIST changes: -CEFT250T8 PO
[2017-02-21 09:38] VITALS: BP 179/77
--- NOTE | 2017-02-21 10:32 | REP ---
Clinical: Cough . Comparison: 03/26/2016 . Technique: PA and lateral. Findings: The mediastinum and cardiac silhouette are normal. The lung birch are clear and without acute consolidation, effusion, or pneumothorax. The skeletal structures are intact and normal. Impression: 1. No acute cardiopulmonary process. Signed by Tommy Pimentel MD 02/21/2017 10:24 A
[2017-02-21] MEDS ORDERED: CEFT250T8 PO (11:00)
== END 2017-02-21 11:09 | disposition home or self-care (01) ==
LOC: M ED 09:37
DX: J01.00 Acute maxillary sinusitis, unspecified (principal); I11.0 Hypertensive heart disease with heart failure; I50.9 Heart failure, unspecified; N18.3 Chronic kidney disease, stage 3 (moderate); E03.9 Hypothyroidism, unspecified; K21.9 Gastro-esophageal reflux disease without esophagitis; M48.00 Spinal stenosis, site unspecified; E78.5 Hyperlipidemia, unspecified; Z95.5 Presence of coronary angioplasty implant and graft; I25.2 Old myocardial infarction; Z79.899 Other long term (current) drug therapy; Z79.82 Long term (current) use of aspirin; Z88.0 Allergy status to penicillin; Z88.1 Allergy status to other antibiotic agents; Z88.2 Allergy status to sulfonamides; Z88.8 Allergy status to other drugs, medicaments and biological substances; Z87.891 Personal history of nicotine dependence

== ENCOUNTER → 2017-04-25 | Outpatient (CLI) | payer MEDICARE, MEDICAID | LOC: M RAD 13:50 | DX: M87.052 Idiopathic aseptic necrosis of left femur (principal) | CPT/HCPCS: 73721 ==

== ENCOUNTER → 2017-06-15 | Outpatient (CLI) | payer MEDICARE, MEDICAID ==
[2017-06-15 10:46] LABS: HEMOGLOBIN 10.2 g/dl (12.0-16.0); MEAN CORPUSCULAR HEMOGLOBIN 30.3 pg (27.0-33.0); MEAN CORPUSCULAR HGB CONC 31.9 g/dl (32.0-36.5); PLATELET COUNT, AUTOMATED 236 10^3/uL (150-450); RED BLOOD COUNT 3.37 10^6/uL (4.00-5.40); RED CELL DISTRIBUTION WIDTH 14.2 % (11.5-14.5); WHITE BLOOD COUNT 6.4 10^3/uL (4.0-10.0)
[2017-06-15 11:06] LABS: APPEARANCE, URINE CLEAR (CLEAR); BACTERIA, URINE AUTO NEGATIVE (NEGATIVE); BILIRUBIN, URINE AUTO NEGATIVE (NEGATIVE); BLOOD, URINE BLOOD NEGATIVE (NEGATIVE); COLOR, URINE YELLOW (YELLOW); GLUCOSE, URINE (UA) AUTO NEGATIVE (NEGATIVE); KETONE, URINE AUTO NEGATIVE (NEGATIVE); LEUKOCYTE ESTERASE, URINE AUTO NEGATIVE (NEGATIVE); MUCUS, URINE SMALL (NEGATIVE); NITRITE, URINE AUTO NEGATIVE (NEGATIVE); PROTEIN, URINE AUTO NEGATIVE (NEGATIVE); RBC, URINE AUTO 3 /HPF (0-3); SPECIFIC GRAVITY URINE AUTO 1.011 (1.002-1.035); SQUAMOUS EPITHELIAL CELL UR AU 0 /HPF (0-6); UROBILINOGEN, URINE AUTO 0.2 mg/dL (0.0-2.0); WBC, URINE AUTO 1 /HPF (0-3)
[2017-06-15 11:07] LABS: ERYTHROCYTE SEDIMENTATION RATE 59 mm/hr (0-30)
[2017-06-15 11:12] LABS: ALBUMIN 3.7 GM/DL (3.2-5.2); ALBUMIN/GLOBULIN RATIO 1.03 (1.00-1.93); ALKALINE PHOSPHATASE 105 U/L (45-117); ALT/SGPT 19 U/L (12-78); ANION GAP 6 MEQ/L (8-16); AST/SGOT 16 U/L (7-37); BILIRUBIN,TOTAL 0.4 MG/DL (0.2-1.0); BLOOD UREA NITROGEN 15 MG/DL (7-18); CALCIUM LEVEL 8.6 MG/DL (8.8-10.2); CARBON DIOXIDE LEVEL 29 MEQ/L (21-32); CHLORIDE LEVEL 106 MEQ/L (98-107); CREATININE FOR GFR 1.04 MG/DL (0.55-1.30); GLOMERULAR FILTRATION RATE 55.3 (>39); GLUCOSE, FASTING 93 MG/DL (70-100); POTASSIUM SERUM 4.2 MEQ/L (3.5-5.1); SODIUM LEVEL 141 MEQ/L (136-145); TOTAL PROTEIN 7.3 GM/DL (6.4-8.2)
[2017-06-15 11:26] LABS: INR 0.94; PROTHROMBIN TIME 12.7 SECONDS (12.4-14.5)
== END ==
LOC: M ADMPAT 09:09
DX: Z01.818 Encounter for other preprocedural examination (principal); J44.9 Chronic obstructive pulmonary disease, unspecified; M16.12 Unilateral primary osteoarthritis, left hip; R00.1 Bradycardia, unspecified; Z79.899 Other long term (current) drug therapy
CPT/HCPCS: 71046

== ENCOUNTER 2017-06-26 08:48 | Emergency (ER) | payer MEDICARE, MEDICAID | END 2017-06-26 09:45 | disposition home or self-care (01) | LOC: M ED 08:48 | DX: J01.90 Acute sinusitis, unspecified (principal); I10 Essential (primary) hypertension; E78.5 Hyperlipidemia, unspecified; I25.10 Atherosclerotic heart disease of native coronary artery without angina pectoris; E03.9 Hypothyroidism, unspecified; K21.9 Gastro-esophageal reflux disease without esophagitis; Z79.899 Other long term (current) drug therapy; Z79.82 Long term (current) use of aspirin; Z79.51 Long term (current) use of inhaled steroids; Z79.890 Hormone replacement therapy; Z79.02 Long term (current) use of antithrombotics/antiplatelets; Z88.1 Allergy status to other antibiotic agents; Z88.2 Allergy status to sulfonamides; Z88.8 Allergy status to other drugs, medicaments and biological substances | CPT/HCPCS: 99283 ==

== ENCOUNTER 2017-07-12 18:16 | Emergency (ER) | payer MEDICARE, MEDICAID ==
[2017-07-12] MEDS: MORPHINE 2 MG/ML 1ML SYRINGE (J2270) IV (18:52)
[2017-07-12] MEDS: ONDANSETRON 4MG/2ML VIAL (J2405) IV (18:53)
[2017-07-12 19:00] LABS: BASO % 0.3 % (0.0-1.0); EOS # 0.2 10^3/uL (0.0-0.50); EOS % 2.4 % (0.0-3.0); HEMOGLOBIN 8.2 g/dl (12.0-15.5); IMMATURE GRANULOCYTE % 1.3 % (0-3.0); LYMPH # 1.3 10^3/uL (1.5-4.5); LYMPH % 20.7 % (24.0-44.0); MEAN CORPUSCULAR HEMOGLOBIN 30.6 pg (27.0-33.0); MEAN CORPUSCULAR HGB CONC 32.8 g/dl (32.0-36.5); MEAN CORPUSCULAR VOLUME 93.3 fl (80.0-96.0); MONO # 0.5 10^3/uL (0.0-0.8); MONO % 8.3 % (0.0-5.0); NEUTROPHILS # 4.2 10^3/uL (1.8-7.7); PLATELET COUNT, AUTOMATED 229 10^3/uL (150-450); RED BLOOD COUNT 2.68 10^6/uL (4.00-5.40); RED CELL DISTRIBUTION WIDTH 13.8 % (11.5-14.5); WHITE BLOOD COUNT 6.2 10^3/uL (4.0-10.0)
[2017-07-12 19:16] LABS: ANION GAP 4 MEQ/L (8-16); BLOOD UREA NITROGEN 19 MG/DL (7-18); CALCIUM LEVEL 8.2 MG/DL (8.8-10.2); CARBON DIOXIDE LEVEL 29 MEQ/L (21-32); CHLORIDE LEVEL 109 MEQ/L (98-107); CREATININE FOR GFR 0.92 MG/DL (0.55-1.30); GLOMERULAR FILTRATION RATE > 60.0 (>39); GLUCOSE, FASTING 100 MG/DL (70-100); POTASSIUM SERUM 3.8 MEQ/L (3.5-5.1); SODIUM LEVEL 142 MEQ/L (136-145)
[2017-07-12 19:28] LABS: AMORPHOUS SEDIMENT SMALL (NEGATIVE); APPEARANCE, URINE CLOUDY (CLEAR); BACTERIA, URINE AUTO 1+ (NEGATIVE); BILIRUBIN, URINE AUTO NEGATIVE (NEGATIVE); BLOOD, URINE BLOOD 3+ (NEGATIVE); COLOR, URINE RED (YELLOW); GLUCOSE, URINE (UA) AUTO NEGATIVE (NEGATIVE); KETONE, URINE AUTO NEGATIVE (NEGATIVE); LEUKOCYTE ESTERASE, URINE AUTO TRACE (NEGATIVE); NITRITE, URINE AUTO NEGATIVE (NEGATIVE); PROTEIN, URINE AUTO 1+ mg/dL (NEGATIVE); RBC, URINE AUTO TNTC /HPF (0-3); SPECIFIC GRAVITY URINE AUTO 1.008 (1.002-1.035); SQUAMOUS EPITHELIAL CELL UR AU 0 /HPF (0-6); UROBILINOGEN, URINE AUTO 0.2 mg/dL (0.0-2.0); WBC, URINE AUTO 154 /HPF (0-3)
[2017-07-12 19:42] LABS: C REACTIVE PROTEIN QUANTITATIV 8.05 MG/DL (0.00-0.30)
[2017-07-12 19:46] LABS: INR 1.03; PROTHROMBIN TIME 13.6 SECONDS (12.4-14.5)
[2017-07-12] MEDS: MORPHINE 4 MG/ML 1ML VIAL/SYRINGE (J2270) IV ×2 (19:49→20:37)
[2017-07-12 19:53] LABS: PARTIAL THROMBOPLASTIN TIME 28.3 SECONDS (26.8-37.9)
[2017-07-12] MEDS: CIPROFLOXACIN 500 MG TAB PO (21:55)
[2017-07-12] MEDS: OXYCODONE/APAP 5MG/325MG(BULK FOR ED) 1 TABLET PO (21:55)
== END 2017-07-12 22:03 | disposition home or self-care (01) ==
LOC: M ED 18:16
DX: N39.0 Urinary tract infection, site not specified (principal); G89.18 Other acute postprocedural pain; M25.552 Pain in left hip; Z96.642 Presence of left artificial hip joint; I25.10 Atherosclerotic heart disease of native coronary artery without angina pectoris; I50.9 Heart failure, unspecified; Z79.82 Long term (current) use of aspirin; Z79.899 Other long term (current) drug therapy; Z88.1 Allergy status to other antibiotic agents; Z88.2 Allergy status to sulfonamides; Z88.6 Allergy status to analgesic agent; Z88.8 Allergy status to other drugs, medicaments and biological substances
CPT/HCPCS: J2270

== ENCOUNTER 2017-07-13 09:22 | Emergency (ER) | payer MEDICARE, MEDICAID ==
[2017-07-13] MEDS: PHENAZOPYRIDINE 100 MG TAB PO (10:22)
[2017-07-13] MEDS: PERCOCET 5MG/325MG TAB PO (12:10)
== END 2017-07-13 12:10 | disposition home or self-care (01) ==
LOC: M ED 09:22
DX: T83.098A Other mechanical complication of other urinary catheter, initial encounter (principal); Y92.89 Other specified places as the place of occurrence of the external cause; I10 Essential (primary) hypertension; J44.9 Chronic obstructive pulmonary disease, unspecified; E07.9 Disorder of thyroid, unspecified; E78.9 Disorder of lipoprotein metabolism, unspecified; D64.9 Anemia, unspecified; M48.00 Spinal stenosis, site unspecified; I25.10 Atherosclerotic heart disease of native coronary artery without angina pectoris; I25.2 Old myocardial infarction; Z79.899 Other long term (current) drug therapy; Z79.82 Long term (current) use of aspirin; Z79.890 Hormone replacement therapy; Z79.02 Long term (current) use of antithrombotics/antiplatelets; Z79.51 Long term (current) use of inhaled steroids; Z88.1 Allergy status to other antibiotic agents; Z88.2 Allergy status to sulfonamides; Z88.8 Allergy status to other drugs, medicaments and biological substances
CPT/HCPCS: 99284

== ENCOUNTER → 2017-09-10 | Outpatient (REF) | payer MEDICARE, MEDICAID ==
[2017-09-10 12:01] LABS: BASO % 0.4 % (0.0-1.0); EOS # 0.1 10^3/uL (0.0-0.50); EOS % 1.7 % (0.0-3.0); HEMOGLOBIN 10.1 g/dl (12.0-15.5); IMMATURE GRANULOCYTE % 0.4 % (0-3.0); LYMPH # 1.5 10^3/uL (1.5-4.5); LYMPH % 20.8 % (24.0-44.0); MEAN CORPUSCULAR HEMOGLOBIN 29.4 pg (27.0-33.0); MEAN CORPUSCULAR HGB CONC 31.6 g/dl (32.0-36.5); MEAN CORPUSCULAR VOLUME 93.3 fl (80.0-96.0); MONO # 0.5 10^3/uL (0.0-0.8); MONO % 6.6 % (0.0-5.0); NEUTROPHILS % 70.1 % (36.0-66.0); PLATELET COUNT, AUTOMATED 260 10^3/uL (150-450); RED BLOOD COUNT 3.43 10^6/uL (4.00-5.40); RED CELL DISTRIBUTION WIDTH 14.5 % (11.5-14.5); WHITE BLOOD COUNT 7.1 10^3/uL (4.0-10.0)
[2017-09-10 12:15] LABS: C REACTIVE PROTEIN QUANTITATIV 1.24 MG/DL (0.00-0.30)
[2017-09-10 13:46] LABS: ERYTHROCYTE SEDIMENTATION RATE 58 mm/hr (0-30)
== END ==
LOC: M LABDRAW1 10:17
DX: M87.051 Idiopathic aseptic necrosis of right femur (principal)
CPT/HCPCS: 86140

== ENCOUNTER → 2017-10-02 | Outpatient (REF) | payer MEDICARE, MEDICAID ==
[2017-10-02 11:53] LABS: HEMATOCRIT 34.4 % (36.0-47.0); HEMOGLOBIN 10.8 g/dl (12.0-15.5); MEAN CORPUSCULAR HEMOGLOBIN 29.6 pg (27.0-33.0); MEAN CORPUSCULAR HGB CONC 31.4 g/dl (32.0-36.5); MEAN CORPUSCULAR VOLUME 94.2 fl (80.0-96.0); PLATELET COUNT, AUTOMATED 185 10^3/uL (150-450); RED BLOOD COUNT 3.65 10^6/uL (4.00-5.40); RED CELL DISTRIBUTION WIDTH 14.6 % (11.5-14.5); WHITE BLOOD COUNT 7.3 10^3/uL (4.0-10.0)
[2017-10-02 13:01] LABS: THYROID STIMULATING HORMONE 0.689 uIU/ML (0.358-3.740)
== END ==
LOC: M SFHCPLAZ 10:36
DX: R42 Dizziness and giddiness (principal); E03.9 Hypothyroidism, unspecified
CPT/HCPCS: 84443

== ENCOUNTER → 2017-10-06 | Outpatient (REF) | payer MEDICARE, MEDICAID ==
[2017-10-06 16:18] LABS: C REACTIVE PROTEIN QUANTITATIV 0.36 MG/DL (0.00-0.30)
[2017-10-06 17:30] LABS: ERYTHROCYTE SEDIMENTATION RATE 46 mm/hr (0-30)
== END ==
LOC: M SFHCPLAZ 11:35
DX: R53.83 Other fatigue (principal); M25.551 Pain in right hip
CPT/HCPCS: 86140

== ENCOUNTER → 2017-10-09 | Outpatient (CLI) | payer MEDICARE, MEDICAID | LOC: M SLEEP HO 11:42 | DX: G47.33 Obstructive sleep apnea (adult) (pediatric) (principal); R40.0 Somnolence | CPT/HCPCS: G0399 ==

== ENCOUNTER → 2017-11-02 | Outpatient (REF) | payer MEDICARE, MEDICAID ==
[2017-11-02 13:00] LABS: HEMOGLOBIN 10.5 g/dl (12.0-15.5); MEAN CORPUSCULAR HEMOGLOBIN 29.9 pg (27.0-33.0); MEAN CORPUSCULAR HGB CONC 31.8 g/dl (32.0-36.5); PLATELET COUNT, AUTOMATED 210 10^3/uL (150-450); RED BLOOD COUNT 3.51 10^6/uL (4.00-5.40); WHITE BLOOD COUNT 4.9 10^3/uL (4.0-10.0)
[2017-11-02 13:27] LABS: ERYTHROCYTE SEDIMENTATION RATE 56 mm/hr (0-30)
[2017-11-02 13:33] LABS: ALBUMIN 3.7 GM/DL (3.2-5.2); ALKALINE PHOSPHATASE 101 U/L (45-117); ALT/SGPT 20 U/L (12-78); ANION GAP 8 MEQ/L (8-16); AST/SGOT 17 U/L (7-37); BILIRUBIN,TOTAL 0.5 MG/DL (0.2-1.0); BLOOD UREA NITROGEN 20 MG/DL (7-18); C REACTIVE PROTEIN QUANTITATIV 0.86 MG/DL (0.00-0.30); CALCIUM LEVEL 9.1 MG/DL (8.8-10.2); CARBON DIOXIDE LEVEL 30 MEQ/L (21-32); CHLORIDE LEVEL 104 MEQ/L (98-107); CHOLESTEROL LEVEL 193 MG/DL (<200); CHOLESTEROL RISK RATIO 3.938 (<5); CREATININE FOR GFR 1.28 MG/DL (0.55-1.30); GLOMERULAR FILTRATION RATE 43.4 (>39); GLUCOSE, FASTING 91 MG/DL (70-100); HDL CHOLESTEROL 49 MG/DL (>40); LDL CHOLESTEROL 95.2 MG/DL (<100); NON-HDL-C 144 MG/DL; SODIUM LEVEL 142 MEQ/L (136-145); TOTAL PROTEIN 7.4 GM/DL (6.4-8.2); TRIGLYCERIDES LEVEL 244 MG/DL (<150)
[2017-11-02 13:35] LABS: PTH INTACT 108.8 PG/ML (18.5-88.0); TOTAL 25(OH) VITAMIN D 59.9 NG/ML (30.0-100.0)
== END ==
LOC: M SFHCPLAZ 11:42
DX: I12.9 Hypertensive chronic kidney disease with stage 1 through stage 4 chronic kidney disease, or unspecified chronic kidney disease (principal); N18.3 Chronic kidney disease, stage 3 (moderate); D63.1 Anemia in chronic kidney disease; R53.83 Other fatigue; M25.551 Pain in right hip; E78.00 Pure hypercholesterolemia, unspecified; M81.0 Age-related osteoporosis without current pathological fracture
CPT/HCPCS: 80053

== ENCOUNTER 2017-11-08 12:21 | Inpatient (IN) | payer MEDICARE, MEDICAID ==
[2017-11-08 13:02] LABS: BASO % 0.3 % (0.0-1.0); EOS # 0.1 10^3/uL (0.0-0.50); EOS % 0.7 % (0.0-3.0); HEMATOCRIT 31.1 % (36.0-47.0); IMMATURE GRANULOCYTE % 0.4 % (0-3.0); LYMPH # 1.9 10^3/uL (1.5-4.5); LYMPH % 20.7 % (24.0-44.0); MEAN CORPUSCULAR HEMOGLOBIN 29.5 pg (27.0-33.0); MEAN CORPUSCULAR HGB CONC 32.2 g/dl (32.0-36.5); MEAN CORPUSCULAR VOLUME 91.7 fl (80.0-96.0); MONO # 0.6 10^3/uL (0.0-0.8); MONO % 6.4 % (0.0-5.0); NEUTROPHILS # 6.5 10^3/uL (1.8-7.7); NEUTROPHILS % 71.5 % (36.0-66.0); PLATELET COUNT, AUTOMATED 213 10^3/uL (150-450); RED BLOOD COUNT 3.39 10^6/uL (4.00-5.40); RED CELL DISTRIBUTION WIDTH 14.6 % (11.5-14.5); WHITE BLOOD COUNT 9.1 10^3/uL (4.0-10.0)
[2017-11-08 13:13] LABS: INR 0.95; PROTHROMBIN TIME 12.8 SECONDS (12.1-14.4)
[2017-11-08] MEDS: LORazepam 2 MG/ML VIAL (J2060) IV (13:14)
[2017-11-08] MEDS: NS 1,000 ML IV ×2 (13:14→20:49)
[2017-11-08 13:28] LABS: ANION GAP 8 MEQ/L (8-16); BLOOD UREA NITROGEN 24 MG/DL (7-18); CALCIUM LEVEL 8.6 MG/DL (8.8-10.2); CARBON DIOXIDE LEVEL 27 MEQ/L (21-32); CHLORIDE LEVEL 106 MEQ/L (98-107); CK-MB VALUE MASS < 1.0 NG/ML (<3.6); CPK CREATINE PHOSPHOKINASE 81 U/L (26-192); CREATININE FOR GFR 1.26 MG/DL (0.55-1.30); GLOMERULAR FILTRATION RATE 44.2 (>39); GLUCOSE, FASTING 113 MG/DL (70-100); MB/CK RELATIVE INDEX 1.23 (< OR =4); POTASSIUM SERUM 4.2 MEQ/L (3.5-5.1); SODIUM LEVEL 141 MEQ/L (136-145); TROPONIN I < 0.02 NG/ML (< 0.10)
[2017-11-08] MEDS: PROMETHAZINE INJ 25 MG/ML VIAL (J2550) IV (14:30)
[2017-11-08] MEDS: MECLIZINE 25 MG TABLET PO (20:49)
[2017-11-08 21:21] LABS: KETONE, URINE AUTO RFX NEGATIVE (NEGATIVE); NITRITE, URINE AUTO RFX NEGATIVE (NEGATIVE); RBC, URINE AUTO RFX TNTC /HPF (0-3); SPECIFIC GRAVITY UR AUTO RFX 1.012 (1.002-1.035); SQUAM EPITHELIAL CELL UR AURFX 1 /HPF (0-6)
[2017-11-08 21:22] LABS: LEUKOCYTE ESTERASE UR AUTO RFX 2+ (NEGATIVE); WBC, URINE AUTO RFX TNTC /HPF (0-3)
[2017-11-08 21:23] LABS: HEMATOCRIT 31.8 % (36.0-47.0); HEMOGLOBIN 10.1 g/dl (12.0-15.5)
[2017-11-08] MEDS ORDERED: NITROGLYCERIN 0.4 MG SUBL TABLET SL (23:15)
[2017-11-08] MEDS: CARVedilol 12.5 MG TAB PO (23:45)
[2017-11-08] MEDS: ONDANSETRON 4MG/2ML VIAL (J2405) IV (23:50)
[2017-11-09 05:13] LABS: BASO % 0.1 % (0.0-1.0); EOS % 0.1 % (0.0-3.0); HEMATOCRIT 29.5 % (36.0-47.0); HEMOGLOBIN 9.4 g/dl (12.0-15.5); IMMATURE GRANULOCYTE % 0.4 % (0-3.0); LYMPH # 1.8 10^3/uL (1.5-4.5); MEAN CORPUSCULAR HEMOGLOBIN 29.4 pg (27.0-33.0); MEAN CORPUSCULAR HGB CONC 31.9 g/dl (32.0-36.5); MEAN CORPUSCULAR VOLUME 92.2 fl (80.0-96.0); MONO # 0.6 10^3/uL (0.0-0.8); MONO % 6.8 % (0.0-5.0); NEUTROPHILS # 6.6 10^3/uL (1.8-7.7); NEUTROPHILS % 72.6 % (36.0-66.0); PLATELET COUNT, AUTOMATED 193 10^3/uL (150-450); RED CELL DISTRIBUTION WIDTH 14.7 % (11.5-14.5)
[2017-11-09 05:38] LABS: ALBUMIN 2.6 GM/DL (3.2-5.2); ALBUMIN/GLOBULIN RATIO 0.74 (1.00-1.93); ALKALINE PHOSPHATASE 78 U/L (45-117); ALT/SGPT 15 U/L (12-78); ANION GAP 5 MEQ/L (8-16); AST/SGOT 15 U/L (7-37); BILIRUBIN,TOTAL 0.4 MG/DL (0.2-1.0); BLOOD UREA NITROGEN 21 MG/DL (7-18); CALCIUM LEVEL 8.1 MG/DL (8.8-10.2); CARBON DIOXIDE LEVEL 26 MEQ/L (21-32); CHLORIDE LEVEL 112 MEQ/L (98-107); CREATININE FOR GFR 1.24 MG/DL (0.55-1.30); GLUCOSE, FASTING 93 MG/DL (70-100); POTASSIUM SERUM 4.4 MEQ/L (3.5-5.1); SODIUM LEVEL 143 MEQ/L (136-145); TOTAL PROTEIN 6.1 GM/DL (6.4-8.2)
[2017-11-09] MEDS: ASPIRIN 81 MG ENTERIC TAB PO (09:08)
[2017-11-09] MEDS: CLOPIDOGREL 75 MG TAB PO (09:08)
[2017-11-09] MEDS: ATORVASTATIN 20 MG TAB PO (09:08)
[2017-11-09] MEDS: LOSARTAN 50 MG TAB PO (09:08)
[2017-11-09] MEDS: PANTOPRAZOLE 40MG TAB (PROTONIX) PO (09:09)
[2017-11-09] MEDS: CARVedilol 12.5 MG TAB PO ×2 (09:09→21:43)
[2017-11-09] MEDS: FUROSEMIDE 40 MG TAB PO (09:09)
[2017-11-09] MEDS: MECLIZINE 25 MG TABLET PO ×2 (09:09→21:42)
[2017-11-09] MEDS: VITAMIN D 1,000 INTERNATIONAL UNITS TABLET PO (09:09)
[2017-11-09 09:31] LABS: REASON FOR REVIEW RBC MORPHOLOGY; SLIDE REVIEW Report; SOURCE PERIPHERAL SMEAR
[2017-11-09 09:32] LABS: RETIC HEMOGLOBIN EQUIVALENT 35.8 pg (24-36); RETICULOCYTE # 39.8 10^9/L (17-77); RETICULOCYTE % 1.2 % (0.5-1.5)
[2017-11-09] MEDS ORDERED: ISOVUE-370 76% 100ML VIAL (Q9967) As Ordered (11:02)
[2017-11-09 14:24] LABS: BACTERIA, URINE AUTO 1+ (NEGATIVE); RBC, URINE AUTO TNTC /HPF (0-3); SQUAMOUS EPITHELIAL CELL UR AU 0 /HPF (0-6); WBC, URINE AUTO TNTC /HPF (0-3)
[2017-11-09] MEDS: LEVOTHYROXINE 75MCG TABLET (0.075MG) PO (14:44)
[2017-11-09] MEDS: PERCOCET 5MG/325MG TAB PO (21:43)
[2017-11-10 05:55] LABS: BASO % 0.1 % (0.0-1.0); EOS # 0.1 10^3/uL (0.0-0.50); EOS % 1.8 % (0.0-3.0); HEMATOCRIT 28.3 % (36.0-47.0); IMMATURE GRANULOCYTE % 0.3 % (0-3.0); LYMPH # 1.8 10^3/uL (1.5-4.5); LYMPH % 27.3 % (24.0-44.0); MEAN CORPUSCULAR HEMOGLOBIN 29.7 pg (27.0-33.0); MEAN CORPUSCULAR HGB CONC 31.8 g/dl (32.0-36.5); MEAN CORPUSCULAR VOLUME 93.4 fl (80.0-96.0); MONO # 0.5 10^3/uL (0.0-0.8); NEUTROPHILS # 4.3 10^3/uL (1.8-7.7); NEUTROPHILS % 63.5 % (36.0-66.0); PLATELET COUNT, AUTOMATED 169 10^3/uL (150-450); RED BLOOD COUNT 3.03 10^6/uL (4.00-5.40); RED CELL DISTRIBUTION WIDTH 14.9 % (11.5-14.5); WHITE BLOOD COUNT 6.7 10^3/uL (4.0-10.0)
[2017-11-10] MEDS: LEVOTHYROXINE 75MCG TABLET (0.075MG) PO (06:00)
[2017-11-10 06:13] LABS: ALBUMIN 2.7 GM/DL (3.2-5.2); ALBUMIN/GLOBULIN RATIO 0.73 (1.00-1.93); ALKALINE PHOSPHATASE 75 U/L (45-117); ALT/SGPT 14 U/L (12-78); ANION GAP 5 MEQ/L (8-16); AST/SGOT 12 U/L (7-37); BILIRUBIN,TOTAL 0.5 MG/DL (0.2-1.0); BLOOD UREA NITROGEN 20 MG/DL (7-18); CALCIUM LEVEL 8.6 MG/DL (8.8-10.2); CARBON DIOXIDE LEVEL 30 MEQ/L (21-32); CHLORIDE LEVEL 108 MEQ/L (98-107); CREATININE FOR GFR 1.27 MG/DL (0.55-1.30); GLOMERULAR FILTRATION RATE 43.8 (>39); GLUCOSE, FASTING 90 MG/DL (70-100); POTASSIUM SERUM 3.8 MEQ/L (3.5-5.1); SODIUM LEVEL 143 MEQ/L (136-145); TOTAL PROTEIN 6.4 GM/DL (6.4-8.2)
[2017-11-10] MEDS: FUROSEMIDE 40 MG TAB PO (10:47)
[2017-11-10] MEDS: ASPIRIN 81 MG ENTERIC TAB PO (10:48)
[2017-11-10] MEDS: CARVedilol 12.5 MG TAB PO ×2 (10:48→20:40)
[2017-11-10] MEDS: CEFDINIR 300 MG CAP (OMNICEF) PO ×2 (10:49→20:40)
[2017-11-10] MEDS: VITAMIN D 1,000 INTERNATIONAL UNITS TABLET PO (10:49)
[2017-11-10] MEDS: LOSARTAN 50 MG TAB PO (10:49)
[2017-11-10] MEDS: CLOPIDOGREL 75 MG TAB PO (10:49)
[2017-11-10] MEDS: PANTOPRAZOLE 40MG TAB (PROTONIX) PO (10:50)
[2017-11-10] MEDS: ATORVASTATIN 20 MG TAB PO (10:50)
[2017-11-10] MEDS: MECLIZINE 25 MG TABLET PO (10:54)
[2017-11-10] MEDS: PERCOCET 5MG/325MG TAB PO ×2 (14:05→20:40)
[2017-11-11] MEDS: LEVOTHYROXINE 75MCG TABLET (0.075MG) PO (05:05)
[2017-11-11 06:14] LABS: BASO % 0.5 % (0.0-1.0); EOS # 0.1 10^3/uL (0.0-0.50); HEMATOCRIT 28.3 % (36.0-47.0); IMMATURE GRANULOCYTE % 0.5 % (0-3.0); LYMPH % 30.7 % (24.0-44.0); MEAN CORPUSCULAR HEMOGLOBIN 30.1 pg (27.0-33.0); MEAN CORPUSCULAR HGB CONC 31.8 g/dl (32.0-36.5); MEAN CORPUSCULAR VOLUME 94.6 fl (80.0-96.0); MONO # 0.5 10^3/uL (0.0-0.8); MONO % 7.6 % (0.0-5.0); NEUTROPHILS # 3.9 10^3/uL (1.8-7.7); NEUTROPHILS % 58.7 % (36.0-66.0); PLATELET COUNT, AUTOMATED 187 10^3/uL (150-450); RED BLOOD COUNT 2.99 10^6/uL (4.00-5.40); RED CELL DISTRIBUTION WIDTH 15.1 % (11.5-14.5); WHITE BLOOD COUNT 6.6 10^3/uL (4.0-10.0)
[2017-11-11 06:51] LABS: ALBUMIN 2.7 GM/DL (3.2-5.2); ALBUMIN/GLOBULIN RATIO 0.75 (1.00-1.93); ALKALINE PHOSPHATASE 77 U/L (45-117); ALT/SGPT 15 U/L (12-78); ANION GAP 8 MEQ/L (8-16); AST/SGOT 11 U/L (7-37); BILIRUBIN,TOTAL 0.2 MG/DL (0.2-1.0); BLOOD UREA NITROGEN 24 MG/DL (7-18); CALCIUM LEVEL 8.5 MG/DL (8.8-10.2); CARBON DIOXIDE LEVEL 28 MEQ/L (21-32); CHLORIDE LEVEL 109 MEQ/L (98-107); CREATININE FOR GFR 1.32 MG/DL (0.55-1.30); GLOMERULAR FILTRATION RATE 41.9 (>39); GLUCOSE, FASTING 102 MG/DL (70-100); POTASSIUM SERUM 3.9 MEQ/L (3.5-5.1); SODIUM LEVEL 145 MEQ/L (136-145); TOTAL PROTEIN 6.3 GM/DL (6.4-8.2)
[2017-11-11] MEDS: NS 1,000 ML IV (08:18)
[2017-11-11] MEDS: VITAMIN D 1,000 INTERNATIONAL UNITS TABLET PO (09:45)
[2017-11-11] MEDS: CLOPIDOGREL 75 MG TAB PO (09:45)
[2017-11-11] MEDS: CEFDINIR 300 MG CAP (OMNICEF) PO (09:45)
[2017-11-11] MEDS: MECLIZINE 25 MG TABLET PO (09:45)
[2017-11-11] MEDS: ASPIRIN 81 MG ENTERIC TAB PO (09:46)
[2017-11-11] MEDS: PANTOPRAZOLE 40MG TAB (PROTONIX) PO (09:46)
[2017-11-11] MEDS: LOSARTAN 50 MG TAB PO (09:46)
[2017-11-11] MEDS: ATORVASTATIN 20 MG TAB PO (09:46)
[2017-11-11] MEDS: CARVedilol 12.5 MG TAB PO (09:47)
== END 2017-11-11 15:03 | disposition home or self-care (01) | DRG 149 ==
LOC: M ED 12:21 → M ED INP 19:12 → M PCU 20:10
DX: H81.10 Benign paroxysmal vertigo, unspecified ear (principal); N13.30 Unspecified hydronephrosis; N39.0 Urinary tract infection, site not specified; I13.0 Hypertensive heart and chronic kidney disease with heart failure and stage 1 through stage 4 chronic kidney disease, or unspecified chronic kidney disease; R31.9 Hematuria, unspecified; I50.9 Heart failure, unspecified; I25.10 Atherosclerotic heart disease of native coronary artery without angina pectoris; D63.1 Anemia in chronic kidney disease; E78.00 Pure hypercholesterolemia, unspecified; J44.9 Chronic obstructive pulmonary disease, unspecified; K21.9 Gastro-esophageal reflux disease without esophagitis; B96.20 Unspecified Escherichia coli [E. coli] as the cause of diseases classified elsewhere; R82.71 Bacteriuria; J30.9 Allergic rhinitis, unspecified; E03.9 Hypothyroidism, unspecified; N18.3 Chronic kidney disease, stage 3 (moderate); M81.0 Age-related osteoporosis without current pathological fracture; I65.29 Occlusion and stenosis of unspecified carotid artery; I70.213 Atherosclerosis of native arteries of extremities with intermittent claudication, bilateral legs; G25.0 Essential tremor; Z88.1 Allergy status to other antibiotic agents; Z88.2 Allergy status to sulfonamides; Z88.6 Allergy status to analgesic agent; Z88.8 Allergy status to other drugs, medicaments and biological substances; Z87.891 Personal history of nicotine dependence; Z90.710 Acquired absence of both cervix and uterus; Z90.49 Acquired absence of other specified parts of digestive tract; Z96.642 Presence of left artificial hip joint; Z98.62 Peripheral vascular angioplasty status; Z79.82 Long term (current) use of aspirin; Z79.02 Long term (current) use of antithrombotics/antiplatelets; Z79.891 Long term (current) use of opiate analgesic; Z79.899 Other long term (current) drug therapy

== ENCOUNTER → 2017-12-30 | Outpatient (CLI) | payer MEDICARE, MEDICAID ==
[2017-12-30 09:42] LABS: HEMATOCRIT 30.1 % (36.0-47.0); HEMOGLOBIN 9.6 g/dl (12.0-15.5); MEAN CORPUSCULAR HEMOGLOBIN 30.1 pg (27.0-33.0); MEAN CORPUSCULAR HGB CONC 31.9 g/dl (32.0-36.5); MEAN CORPUSCULAR VOLUME 94.4 fl (80.0-96.0); PLATELET COUNT, AUTOMATED 214 10^3/uL (150-450); RED BLOOD COUNT 3.19 10^6/uL (4.00-5.40); RED CELL DISTRIBUTION WIDTH 14.1 % (11.5-14.5); WHITE BLOOD COUNT 4.5 10^3/uL (4.0-10.0)
[2017-12-30 09:54] LABS: INR 0.93; PROTHROMBIN TIME 12.6 SECONDS (12.1-14.4)
[2017-12-30 10:06] LABS: ERYTHROCYTE SEDIMENTATION RATE 52 mm/hr (0-30)
[2017-12-30 10:16] LABS: ALBUMIN 3.5 GM/DL (3.2-5.2); ALBUMIN/GLOBULIN RATIO 1.09 (1.00-1.93); ALKALINE PHOSPHATASE 83 U/L (45-117); ALT/SGPT 17 U/L (12-78); ANION GAP 7 MEQ/L (8-16); AST/SGOT 14 U/L (7-37); BILIRUBIN,TOTAL 0.3 MG/DL (0.2-1.0); BLOOD UREA NITROGEN 26 MG/DL (7-18); CALCIUM LEVEL 9.1 MG/DL (8.8-10.2); CARBON DIOXIDE LEVEL 29 MEQ/L (21-32); CHLORIDE LEVEL 107 MEQ/L (98-107); CREATININE FOR GFR 1.27 MG/DL (0.55-1.30); GLOMERULAR FILTRATION RATE 43.8 (>39); GLUCOSE, FASTING 92 MG/DL (70-100); POTASSIUM SERUM 3.9 MEQ/L (3.5-5.1); SODIUM LEVEL 143 MEQ/L (136-145); TOTAL PROTEIN 6.7 GM/DL (6.4-8.2)
== END ==
LOC: M LAB 08:17
DX: Z01.818 Encounter for other preprocedural examination (principal); M16.11 Unilateral primary osteoarthritis, right hip; J44.9 Chronic obstructive pulmonary disease, unspecified; N18.3 Chronic kidney disease, stage 3 (moderate); K21.9 Gastro-esophageal reflux disease without esophagitis; I25.2 Old myocardial infarction
CPT/HCPCS: 71046

== ENCOUNTER 2018-01-08 05:36 | Inpatient (IN) | payer MEDICARE, MEDICAID ==
[2018-01-08] MEDS ORDERED: LR 1,000 ML IV (06:00)
[2018-01-08] MEDS ORDERED: ceFAZolin 2 GM/D5W 50 ML IV BAG (J0690 PER 500MG) As Ordered (06:29)
[2018-01-08] MEDS ORDERED: ETOMIDATE INJ 20MG/10ML VIAL As Ordered (08:07)
[2018-01-08] MEDS ORDERED: LIDOCAINE 2% INJ 100 MG/5 ML SDV (FOR ANES.) As Ordered (08:07)
[2018-01-08] MEDS ORDERED: ONDANSETRON 4MG/2ML VIAL (J2405) As Ordered (08:07)
[2018-01-08] MEDS ORDERED: fentaNYL 250 MCG/5 ML INJECTION (J3010) As Ordered (08:07)
[2018-01-08] MEDS ORDERED: PROPOFOL 200 MG/20 ML VIAL As Ordered (08:07)
[2018-01-08] MEDS ORDERED: MIDAZOLAM INJ 2 MG/2 ML VIAL (J2250) As Ordered (08:07)
[2018-01-08] MEDS ORDERED: dexameTHASONE 4 MG/ML 1ML VIAL (J1100) As Ordered (08:07)
[2018-01-08] MEDS ORDERED: ROCURONIUM BROMIDE 50 MG/5 ML VIAL As Ordered (08:07)
[2018-01-08] MEDS ORDERED: hydrALAZINE INJ 20 MG/ML VIAL As Ordered (08:21)
[2018-01-08] MEDS ORDERED: GLYCOPYRROLATE INJ 0.2 MG/ML 2 ML VIAL As Ordered ×2 (08:21)
[2018-01-08] MEDS ORDERED: NEOSTIGMINE 10 MG/10 ML VIAL (J2710) As Ordered (08:21)
[2018-01-08] MEDS: EPINEPHrine INJ 1 MG/ML 1ML AMP As Ordered (08:35)
[2018-01-08] MEDS: TRANEXAMIC ACID 100 MG/ML 10ML VIAL As Ordered (08:36)
[2018-01-08] MEDS: ceFAZolin 1GM INJ (J0690 PER 500MG) As Ordered (08:37)
[2018-01-08] MEDS ORDERED: ePHEDrine SULFATE 25 MG/5 ML(5MG/ML) SYRINGE As Ordered (08:40)
[2018-01-08] MEDS ORDERED: fentaNYL 100 MCG/2 ML INJECTION (J3010) As Ordered ×2 (09:08→09:19)
[2018-01-08] MEDS: fentaNYL 100 MCG/2 ML INJECTION (J3010) IV ×4 (09:18→09:33)
[2018-01-08] MEDS ORDERED: MORPHINE 10 MG/ML 1ML VIAL (J2270) As Ordered (09:19)
[2018-01-08] MEDS: LR 1,000 ML IV ×3 (09:30→23:31)
[2018-01-08] MEDS ORDERED: ONDANSETRON 4MG/2ML VIAL (J2405) IV (09:30)
[2018-01-08] MEDS: MORPHINE 10 MG/ML 1ML VIAL (J2270) IV ×5 (09:40→10:00)
[2018-01-08] MEDS: MORPHINE 1MG/ML IN 0.9% NACL 100ML IV BAG IV (10:10)
[2018-01-08] MEDS ORDERED: NALBUPHINE HCL 10 MG/ML AMP (J2300) IV (10:15)
[2018-01-08] MEDS ORDERED: EPIDURAL/PCA KEYS XX (10:15)
[2018-01-08] MEDS ORDERED: diphenhydrAMINE INJ 50MG/ML VIAL (J1200) IV (10:15)
[2018-01-08] MEDS ORDERED: FLEET ENEMA PR (10:15)
[2018-01-08] MEDS ORDERED: NALOXONE INJ 0.4 MG/1 ML VIAL (J2310) IV (10:15)
[2018-01-08] MEDS ORDERED: ACETAMINOPHEN TAB 650MG DOSE (2X325MG) PO (10:15)
[2018-01-08] MEDS: PERCOCET 5MG/325MG TAB PO ×2 (10:30→11:25)
[2018-01-08] MEDS: ONDANSETRON 4MG/2ML VIAL (J2405) IV ×2 (12:50→20:42)
[2018-01-08] MEDS ORDERED: NITROGLYCERIN 0.4 MG SUBL TABLET SL (16:45)
[2018-01-08] MEDS ORDERED: IPRATROPIUM 0.5MG/ALBUTEROL 2.5MG INH SOL UD 3ML (DUONEB)(J7620) NEB (16:45)
[2018-01-08] MEDS: OMEPRAZOLE 20 MG CAP PO (18:16)
[2018-01-08] MEDS: CYANOCOBALAMIN 500 MCG TAB PO (18:18)
[2018-01-08] MEDS: MECLIZINE 25 MG TABLET PO (18:18)
[2018-01-08] MEDS: VITAMIN D 1,000 INTERNATIONAL UNITS TABLET PO (18:19)
[2018-01-08] MEDS: ATORVASTATIN 20 MG TAB PO (21:56)
[2018-01-08] MEDS: CARVedilol 12.5 MG TAB PO (21:57)
[2018-01-09] MEDS: LEVOTHYROXINE 75MCG TABLET (0.075MG) PO (05:15)
[2018-01-09] MEDS ORDERED: ONDANSETRON 4 MG TAB (S0181) PO (06:45)
[2018-01-09] MEDS ORDERED: PERCOCET 5MG/325MG TAB PO (06:45)
[2018-01-09 06:55] LABS: HEMOGLOBIN 7.5 g/dl (12.0-15.5); MEAN CORPUSCULAR HEMOGLOBIN 30.5 pg (27.0-33.0); MEAN CORPUSCULAR HGB CONC 32.6 g/dl (32.0-36.5); MEAN CORPUSCULAR VOLUME 93.5 fl (80.0-96.0); PLATELET COUNT, AUTOMATED 195 10^3/uL (150-450); RED BLOOD COUNT 2.46 10^6/uL (4.00-5.40); RED CELL DISTRIBUTION WIDTH 14.2 % (11.5-14.5); WHITE BLOOD COUNT 11.6 10^3/uL (4.0-10.0)
[2018-01-09 07:17] LABS: INR 1.03; PROTHROMBIN TIME 13.6 SECONDS (12.1-14.4)
[2018-01-09 07:29] LABS: ALBUMIN 2.8 GM/DL (3.2-5.2); ANION GAP 10 MEQ/L (8-16); BLOOD UREA NITROGEN 27 MG/DL (7-18); CARBON DIOXIDE LEVEL 25 MEQ/L (21-32); CHLORIDE LEVEL 107 MEQ/L (98-107); GLOMERULAR FILTRATION RATE 39.1 (>39); GLUCOSE, FASTING 126 MG/DL (70-100); PHOSPHORUS LEVEL 3.7 MG/DL (2.5-4.9); POTASSIUM SERUM 4.6 MEQ/L (3.5-5.1); SODIUM LEVEL 142 MEQ/L (136-145)
[2018-01-09] MEDS: MOM 30ML SUSPENSION UDC PO ×2 (08:53→09:00)
[2018-01-09] MEDS: MIRALAX *UNIT DOSE* 17GM PACKET PO (08:54)
[2018-01-09] MEDS: SENOKOT S TAB PO ×2 (08:54→20:17)
[2018-01-09] MEDS: ASPIRIN 81 MG ENTERIC TAB PO (08:54)
[2018-01-09] MEDS: CLOPIDOGREL 75 MG TAB PO (08:55)
[2018-01-09] MEDS: VITAMIN D 1,000 INTERNATIONAL UNITS TABLET PO (08:55)
[2018-01-09] MEDS: LOSARTAN 50 MG TAB PO (08:55)
[2018-01-09] MEDS: CARVedilol 12.5 MG TAB PO ×2 (08:56→20:17)
[2018-01-09] MEDS: FUROSEMIDE 40 MG TAB PO (08:57)
[2018-01-09] MEDS: RIVAROXABAN 10 MG TAB (XARELTO) PO (08:57)
[2018-01-09] MEDS: CYANOCOBALAMIN 500 MCG TAB PO (08:57)
[2018-01-09] MEDS: OMEPRAZOLE 20 MG CAP PO (08:57)
[2018-01-09] MEDS: PERCOCET 5MG/325MG TAB PO ×4 (08:58→21:05)
[2018-01-09] MEDS: TAMSULOSIN 0.4 MG CAP PO (12:42)
[2018-01-09 13:32] LABS: IMMEDIATE SPIN CROSSMATCH 1 1
[2018-01-09] MEDS: ATORVASTATIN 20 MG TAB PO (20:17)
[2018-01-10] MEDS: PERCOCET 5MG/325MG TAB PO ×5 (01:01→20:53)
[2018-01-10] MEDS: LEVOTHYROXINE 75MCG TABLET (0.075MG) PO (05:27)
[2018-01-10 07:07] LABS: HEMATOCRIT 23.2 % (36.0-47.0); HEMOGLOBIN 7.6 g/dl (12.0-15.5); MEAN CORPUSCULAR HEMOGLOBIN 29.9 pg (27.0-33.0); MEAN CORPUSCULAR HGB CONC 32.8 g/dl (32.0-36.5); MEAN CORPUSCULAR VOLUME 91.3 fl (80.0-96.0); PLATELET COUNT, AUTOMATED 143 10^3/uL (150-450); RED BLOOD COUNT 2.54 10^6/uL (4.00-5.40); RED CELL DISTRIBUTION WIDTH 15.1 % (11.5-14.5); WHITE BLOOD COUNT 8.9 10^3/uL (4.0-10.0)
[2018-01-10 07:44] LABS: ALBUMIN 2.6 GM/DL (3.2-5.2); ANION GAP 8 MEQ/L (8-16); BLOOD UREA NITROGEN 33 MG/DL (7-18); CARBON DIOXIDE LEVEL 27 MEQ/L (21-32); CHLORIDE LEVEL 108 MEQ/L (98-107); CREATININE FOR GFR 1.38 MG/DL (0.55-1.30); GLOMERULAR FILTRATION RATE 39.8 (>39); GLUCOSE, FASTING 102 MG/DL (70-100); SODIUM LEVEL 143 MEQ/L (136-145)
[2018-01-10] MEDS: VITAMIN D 1,000 INTERNATIONAL UNITS TABLET PO (08:38)
[2018-01-10] MEDS: OMEPRAZOLE 20 MG CAP PO (08:38)
[2018-01-10] MEDS: CARVedilol 12.5 MG TAB PO ×2 (08:39→20:52)
[2018-01-10] MEDS: ASPIRIN 81 MG ENTERIC TAB PO (08:39)
[2018-01-10] MEDS: TAMSULOSIN 0.4 MG CAP PO (08:40)
[2018-01-10] MEDS: MOM 30ML SUSPENSION UDC PO (08:40)
[2018-01-10] MEDS: RIVAROXABAN 10 MG TAB (XARELTO) PO (08:40)
[2018-01-10] MEDS: MIRALAX *UNIT DOSE* 17GM PACKET PO (08:40)
[2018-01-10] MEDS: CLOPIDOGREL 75 MG TAB PO (08:40)
[2018-01-10] MEDS: CYANOCOBALAMIN 500 MCG TAB PO (08:40)
[2018-01-10] MEDS: SENOKOT S TAB PO ×2 (08:40→20:52)
[2018-01-10 11:52] LABS: IMMEDIATE SPIN CROSSMATCH 1 1
[2018-01-10] MEDS: ATORVASTATIN 20 MG TAB PO (20:52)
[2018-01-11] MEDS: PERCOCET 5MG/325MG TAB PO ×3 (01:44→10:38)
[2018-01-11] MEDS: LEVOTHYROXINE 75MCG TABLET (0.075MG) PO (05:34)
[2018-01-11] MEDS: SENOKOT S TAB PO (08:49)
[2018-01-11] MEDS: RIVAROXABAN 10 MG TAB (XARELTO) PO (08:49)
[2018-01-11] MEDS: MIRALAX *UNIT DOSE* 17GM PACKET PO (08:49)
[2018-01-11] MEDS: MOM 30ML SUSPENSION UDC PO (08:49)
[2018-01-11] MEDS: CYANOCOBALAMIN 500 MCG TAB PO (08:50)
[2018-01-11] MEDS: VITAMIN D 1,000 INTERNATIONAL UNITS TABLET PO (08:50)
[2018-01-11] MEDS: CLOPIDOGREL 75 MG TAB PO (08:50)
[2018-01-11] MEDS: OMEPRAZOLE 20 MG CAP PO (08:50)
[2018-01-11] MEDS: ASPIRIN 81 MG ENTERIC TAB PO (08:50)
[2018-01-11] MEDS: TAMSULOSIN 0.4 MG CAP PO (08:50)
[2018-01-11] MEDS: CARVedilol 12.5 MG TAB PO (08:52)
[2018-01-11 09:42] LABS: HEMATOCRIT 29.1 % (36.0-47.0); HEMOGLOBIN 9.7 g/dl (12.0-15.5); MEAN CORPUSCULAR HEMOGLOBIN 30.5 pg (27.0-33.0); MEAN CORPUSCULAR HGB CONC 33.3 g/dl (32.0-36.5); MEAN CORPUSCULAR VOLUME 91.5 fl (80.0-96.0); PLATELET COUNT, AUTOMATED 173 10^3/uL (150-450); RED BLOOD COUNT 3.18 10^6/uL (4.00-5.40); RED CELL DISTRIBUTION WIDTH 14.9 % (11.5-14.5); WHITE BLOOD COUNT 9.3 10^3/uL (4.0-10.0)
== END 2018-01-11 14:20 | disposition home health service (06) | DRG 470 ==
LOC: M OR 05:36 → M MS5PR 12:29
PROC: 0SR902Z Replacement of Right Hip Joint with Metal on Polyethylene Synthetic Substitute, Open Approach (ICD-10-PCS; principal; 2018-01-08 07:30)
PROC: 0QP604Z Removal of Internal Fixation Device from Right Upper Femur, Open Approach (ICD-10-PCS; 2018-01-08 07:30)
DX: M16.11 Unilateral primary osteoarthritis, right hip (principal); N18.3 Chronic kidney disease, stage 3 (moderate); Z88.2 Allergy status to sulfonamides; Z88.6 Allergy status to analgesic agent; Z79.899 Other long term (current) drug therapy; Z79.82 Long term (current) use of aspirin; E78.00 Pure hypercholesterolemia, unspecified; I12.9 Hypertensive chronic kidney disease with stage 1 through stage 4 chronic kidney disease, or unspecified chronic kidney disease; D63.1 Anemia in chronic kidney disease; Z86.73 Personal history of transient ischemic attack (TIA), and cerebral infarction without residual deficits; J44.9 Chronic obstructive pulmonary disease, unspecified; G47.30 Sleep apnea, unspecified; I70.219 Atherosclerosis of native arteries of extremities with intermittent claudication, unspecified extremity; M48.061 Spinal stenosis, lumbar region without neurogenic claudication; J30.9 Allergic rhinitis, unspecified; Z96.642 Presence of left artificial hip joint; I25.10 Atherosclerotic heart disease of native coronary artery without angina pectoris; E03.9 Hypothyroidism, unspecified; M81.0 Age-related osteoporosis without current pathological fracture; R25.1 Tremor, unspecified; I65.29 Occlusion and stenosis of unspecified carotid artery; Z87.891 Personal history of nicotine dependence; Z88.8 Allergy status to other drugs, medicaments and biological substances; K21.9 Gastro-esophageal reflux disease without esophagitis; N20.0 Calculus of kidney; R33.9 Retention of urine, unspecified

== ENCOUNTER 2018-01-12 06:15 | Observation (INO) | payer MEDICARE, MEDICAID ==
[2018-01-12] MEDS: LEVOTHYROXINE 75MCG TABLET (0.075MG) PO (06:00)
[2018-01-12 07:20] LABS: BASO % 0.4 % (0.0-1.0); EOS # 0.2 10^3/uL (0.0-0.50); HEMATOCRIT 27.9 % (36.0-47.0); IMMATURE GRANULOCYTE % 2.2 % (0-3.0); LYMPH # 1.9 10^3/uL (1.5-4.5); LYMPH % 25.9 % (24.0-44.0); MEAN CORPUSCULAR HEMOGLOBIN 30.3 pg (27.0-33.0); MEAN CORPUSCULAR HGB CONC 32.3 g/dl (32.0-36.5); MEAN CORPUSCULAR VOLUME 93.9 fl (80.0-96.0); MONO # 0.5 10^3/uL (0.0-0.8); MONO % 6.8 % (0.0-5.0); NEUTROPHILS # 4.6 10^3/uL (1.8-7.7); NEUTROPHILS % 62.7 % (36.0-66.0); PLATELET COUNT, AUTOMATED 193 10^3/uL (150-450); RED BLOOD COUNT 2.97 10^6/uL (4.00-5.40); RED CELL DISTRIBUTION WIDTH 14.8 % (11.5-14.5); WHITE BLOOD COUNT 7.3 10^3/uL (4.0-10.0)
[2018-01-12 07:23] LABS: INR 1.61; PROTHROMBIN TIME 19.4 SECONDS (12.1-14.4)
[2018-01-12] MEDS: MORPHINE 2 MG/ML 1ML SYRINGE (J2270) IV ×2 (07:43→08:31)
[2018-01-12] MEDS: ONDANSETRON 4MG/2ML VIAL (J2405) IV (07:43)
[2018-01-12 07:51] LABS: ALBUMIN 2.5 GM/DL (3.2-5.2); ALBUMIN/GLOBULIN RATIO 0.81 (1.00-1.93); ALKALINE PHOSPHATASE 69 U/L (45-117); ALT/SGPT 13 U/L (12-78); ANION GAP 6 MEQ/L (8-16); AST/SGOT 18 U/L (7-37); BILIRUBIN,TOTAL 0.5 MG/DL (0.2-1.0); BLOOD UREA NITROGEN 22 MG/DL (7-18); CALCIUM LEVEL 7.6 MG/DL (8.8-10.2); CARBON DIOXIDE LEVEL 28 MEQ/L (21-32); CHLORIDE LEVEL 109 MEQ/L (98-107); CREATININE FOR GFR 1.04 MG/DL (0.55-1.30); GLOMERULAR FILTRATION RATE 55.1 (>39); GLUCOSE, FASTING 96 MG/DL (70-100); POTASSIUM SERUM 4.1 MEQ/L (3.5-5.1); SODIUM LEVEL 143 MEQ/L (136-145); TOTAL PROTEIN 5.6 GM/DL (6.4-8.2)
[2018-01-12] MEDS: MORPHINE 4 MG/ML 1ML VIAL/SYRINGE (J2270) IV ×2 (09:29→12:09)
[2018-01-12 11:33] LABS: HEMATOCRIT 24.1 % (36.0-47.0); HEMOGLOBIN 7.8 g/dl (12.0-15.5); MEAN CORPUSCULAR HEMOGLOBIN 30.4 pg (27.0-33.0); MEAN CORPUSCULAR HGB CONC 32.4 g/dl (32.0-36.5); MEAN CORPUSCULAR VOLUME 93.8 fl (80.0-96.0); PLATELET COUNT, AUTOMATED 167 10^3/uL (150-450); RED BLOOD COUNT 2.57 10^6/uL (4.00-5.40); RED CELL DISTRIBUTION WIDTH 14.7 % (11.5-14.5); WHITE BLOOD COUNT 6.5 10^3/uL (4.0-10.0)
[2018-01-12] MEDS ORDERED: MECLIZINE 25 MG TABLET PO (12:45)
[2018-01-12] MEDS ORDERED: NITROGLYCERIN 0.4 MG SUBL TABLET SL (12:45)
[2018-01-12 16:16] LABS: IMMEDIATE SPIN CROSSMATCH 1 1
[2018-01-12] MEDS: OMEPRAZOLE 20 MG CAP PO (16:37)
[2018-01-12] MEDS: VITAMIN D 1,000 INTERNATIONAL UNITS TABLET PO (16:37)
[2018-01-12] MEDS: CYANOCOBALAMIN 500 MCG TAB PO (16:37)
[2018-01-12] MEDS: LOSARTAN 50 MG TAB PO (16:38)
[2018-01-12] MEDS: FUROSEMIDE 40 MG TAB PO (16:39)
[2018-01-12] MEDS: PERCOCET 5MG/325MG TAB PO ×2 (16:39→20:50)
[2018-01-12] MEDS: CARVedilol 12.5 MG TAB PO (20:50)
[2018-01-12] MEDS: ATORVASTATIN 20 MG TAB PO (20:51)
[2018-01-12 21:05] LABS: HEMATOCRIT 30.1 % (36.0-47.0)
[2018-01-12 21:21] LABS: HEMOGLOBIN 9.9 g/dl (12.0-15.5)
[2018-01-13] MEDS: PERCOCET 5MG/325MG TAB PO ×3 (00:43→09:14)
[2018-01-13] MEDS: LEVOTHYROXINE 75MCG TABLET (0.075MG) PO (05:18)
[2018-01-13 06:49] LABS: HEMATOCRIT 27.4 % (36.0-47.0); HEMOGLOBIN 9.1 g/dl (12.0-15.5); MEAN CORPUSCULAR HEMOGLOBIN 30.5 pg (27.0-33.0); MEAN CORPUSCULAR HGB CONC 33.2 g/dl (32.0-36.5); MEAN CORPUSCULAR VOLUME 91.9 fl (80.0-96.0); PLATELET COUNT, AUTOMATED 171 10^3/uL (150-450); RED BLOOD COUNT 2.98 10^6/uL (4.00-5.40); RED CELL DISTRIBUTION WIDTH 14.6 % (11.5-14.5); WHITE BLOOD COUNT 6.6 10^3/uL (4.0-10.0)
[2018-01-13 07:16] LABS: ANION GAP 6 MEQ/L (8-16); BLOOD UREA NITROGEN 20 MG/DL (7-18); CALCIUM LEVEL 7.9 MG/DL (8.8-10.2); CARBON DIOXIDE LEVEL 27 MEQ/L (21-32); CHLORIDE LEVEL 109 MEQ/L (98-107); CREATININE FOR GFR 1.02 MG/DL (0.55-1.30); GLOMERULAR FILTRATION RATE 56.4 (>39); GLUCOSE, FASTING 96 MG/DL (70-100); POTASSIUM SERUM 4.1 MEQ/L (3.5-5.1); SODIUM LEVEL 142 MEQ/L (136-145)
[2018-01-13] MEDS: CYANOCOBALAMIN 500 MCG TAB PO (09:12)
[2018-01-13] MEDS: VITAMIN D 1,000 INTERNATIONAL UNITS TABLET PO (09:12)
[2018-01-13] MEDS: CARVedilol 12.5 MG TAB PO (09:12)
[2018-01-13] MEDS: OMEPRAZOLE 20 MG CAP PO (09:13)
[2018-01-13] MEDS: LOSARTAN 50 MG TAB PO (09:13)
[2018-01-13] MEDS: FUROSEMIDE 40 MG TAB PO (09:13)
== END 2018-01-13 11:15 | disposition home health service (06) ==
LOC: M ED 06:15 → M ED INP 11:44 → M MS5PR 12:55
DX: T81.89XA Other complications of procedures, not elsewhere classified, initial encounter (principal); Z96.641 Presence of right artificial hip joint; I12.9 Hypertensive chronic kidney disease with stage 1 through stage 4 chronic kidney disease, or unspecified chronic kidney disease; N18.3 Chronic kidney disease, stage 3 (moderate); D63.1 Anemia in chronic kidney disease; I25.10 Atherosclerotic heart disease of native coronary artery without angina pectoris; E03.9 Hypothyroidism, unspecified; J44.9 Chronic obstructive pulmonary disease, unspecified; Z98.61 Coronary angioplasty status; E78.00 Pure hypercholesterolemia, unspecified; Z88.2 Allergy status to sulfonamides; Z79.82 Long term (current) use of aspirin; Z88.8 Allergy status to other drugs, medicaments and biological substances; I73.9 Peripheral vascular disease, unspecified; M48.061 Spinal stenosis, lumbar region without neurogenic claudication
CPT/HCPCS: 36430

== ENCOUNTER 2018-01-28 11:13 | Emergency (ER) | payer MEDICARE, MEDICAID ==
[2018-01-28 12:38] LABS: BASO % 0.6 % (0.0-1.0); EOS # 0.1 10^3/uL (0.0-0.50); EOS % 2.9 % (0.0-3.0); HEMATOCRIT 30.2 % (36.0-47.0); HEMOGLOBIN 9.7 g/dl (12.0-15.5); IMMATURE GRANULOCYTE % 0.8 % (0-3.0); LYMPH # 1.4 10^3/uL (1.5-4.5); LYMPH % 28.5 % (24.0-44.0); MEAN CORPUSCULAR HEMOGLOBIN 30.7 pg (27.0-33.0); MEAN CORPUSCULAR HGB CONC 32.1 g/dl (32.0-36.5); MEAN CORPUSCULAR VOLUME 95.6 fl (80.0-96.0); MONO # 0.4 10^3/uL (0.0-0.8); MONO % 8.1 % (0.0-5.0); NEUTROPHILS # 2.9 10^3/uL (1.8-7.7); NEUTROPHILS % 59.1 % (36.0-66.0); PLATELET COUNT, AUTOMATED 355 10^3/uL (150-450); RED BLOOD COUNT 3.16 10^6/uL (4.00-5.40); RED CELL DISTRIBUTION WIDTH 13.5 % (11.5-14.5); WHITE BLOOD COUNT 4.8 10^3/uL (4.0-10.0)
[2018-01-28 12:40] LABS: INR 0.99; PROTHROMBIN TIME 13.2 SECONDS (12.1-14.4)
[2018-01-28 12:41] LABS: PARTIAL THROMBOPLASTIN TIME 31.4 SECONDS (25.4-37.6)
[2018-01-28 12:48] LABS: ALBUMIN 3.2 GM/DL (3.2-5.2); ALBUMIN/GLOBULIN RATIO 0.86 (1.00-1.93); ALKALINE PHOSPHATASE 120 U/L (45-117); ALT/SGPT 14 U/L (12-78); ANION GAP 9 MEQ/L (8-16); AST/SGOT 18 U/L (7-37); BILIRUBIN,TOTAL 0.4 MG/DL (0.2-1.0); BLOOD UREA NITROGEN 18 MG/DL (7-18); CALCIUM LEVEL 8.7 MG/DL (8.8-10.2); CARBON DIOXIDE LEVEL 28 MEQ/L (21-32); CHLORIDE LEVEL 104 MEQ/L (98-107); GLOMERULAR FILTRATION RATE 51.7 (>39); GLUCOSE, FASTING 90 MG/DL (70-100); MAGNESIUM LEVEL 2.1 MG/DL (1.8-2.4); SODIUM LEVEL 141 MEQ/L (136-145); TOTAL PROTEIN 6.9 GM/DL (6.4-8.2)
[2018-01-28] MEDS: POLYSPORIN TOPICAL OINTMENT 15GM TOP (13:00)
== END 2018-01-28 13:30 | disposition home or self-care (01) ==
LOC: M ED 11:13
DX: R04.0 Epistaxis (principal); I10 Essential (primary) hypertension; J44.9 Chronic obstructive pulmonary disease, unspecified
CPT/HCPCS: 83735

== ENCOUNTER → 2018-03-17 | Outpatient (CLI) | payer MEDICARE, MEDICAID ==
[~2018-03-17] MED LIST changes: +ACET30TAB PO; +APAP/CODEINE; +APAP/CODEINE PO; +BREO1INH INH; +BREO1INH3 INH; +CEFD300CAP PO; +CEFT250T8 PO; +CIPR-249 PO; +COUM1TAB17 PO; +D 50CAP PO; +FOSA70TA PO; +KEFL500C17 PO; +LOSA-4 PO; -LOSA100T36 PO; +MECL-68 PO; +OXYC1TAB23 PO; +PERC5TAB12 PO; +POLYOIN2 TOP; +SYNT75TA PO; +TRAM50TA2 PO; +TYLE500T78 PO; +VITA100072 PO; -VITA1CAP40 PO; +VITA50005 PO; +[UNRECOGNIZED DRUG - CODE] XX
--- NOTE | 2018-03-17 13:55 | REPMRS ---
Patient History The patient states she has not had a clinical breast exam in over a year. Patient is postmenopausal. Family history of breast cancer at age 46 in sister, breast cancer at age 50 or over in maternal aunt, ovarian cancer at age 50 or over in maternal grandmother. No Hormone Replacement Therapy Digital Woman Screen Mammo: March 17, 2018 - Exam #: [id number] Bilateral CC and MLO view(s) were taken. Technologist: Margarita Chase, Technologist Prior study comparison: April 08, 2013, digital woman screen mammo performed at [facility]. March 10, 2012, digital woman screen mammo performed at [facility]. November 08, 2009, bilateral bilat screen digital mammo performed at [facility]. FINDINGS: There are scattered fibroglandular densities. There is a moderate amount of residual fibroglandular tissue which is fairly symmetric. There is no interval development of dominant mass, architectural distortion, or clustered microcalcification typical of malignancy. There has been no change in the appearance of the mammogram from the prior studies. 3-D tomosynthesis shows no additional findings. Assessment: BI-RADS/ACR category 1 mammogram. Negative. Recommendation Routine screening mammogram of both breasts in 1 year (for women over age 40). This patient's Lifetime Breast Cancer RIsk is estimated at 5.2 %. This mammogram was interpreted with the aid of an FDA-approved computer-aided dectection system. Electronically Signed By: Kush Potter MD 03/17/18 [id number]
== END ==
LOC: M WHC 09:38
PROVIDERS: ATTEND Internal Medicine
DX: Z12.31 Encounter for screening mammogram for malignant neoplasm of breast (principal); Z78.0 Asymptomatic menopausal state

== ENCOUNTER → 2018-04-13 | Outpatient (REF) | payer MEDICARE, MEDICAID ==
[~2018-04-13] MED LIST changes: -LASI40TA PO; +LASI40TA9 PO; -LOSA-4 PO; +LOSA100T50 PO
[2018-04-13 18:42] LABS: APPEARANCE, URINE CLEAR (CLEAR); BACTERIA, URINE AUTO NEGATIVE (NEGATIVE); BILIRUBIN, URINE AUTO NEGATIVE (NEGATIVE); BLOOD, URINE BLOOD NEGATIVE (NEGATIVE); COLOR, URINE STRAW (YELLOW); GLUCOSE, URINE (UA) AUTO NEGATIVE (NEGATIVE); KETONE, URINE AUTO NEGATIVE (NEGATIVE); LEUKOCYTE ESTERASE, URINE AUTO TRACE (NEGATIVE); NITRITE, URINE AUTO NEGATIVE (NEGATIVE); PROTEIN, URINE AUTO NEGATIVE (NEGATIVE); RBC, URINE AUTO 1 /HPF (0-3); SPECIFIC GRAVITY URINE AUTO 1.008 (1.002-1.035); SQUAMOUS EPITHELIAL CELL UR AU 0 /HPF (0-6); UROBILINOGEN, URINE AUTO 0.2 mg/dL (0.0-2.0); WBC, URINE AUTO 2 /HPF (0-3)
== END ==
LOC: M SMT 17:20
PROVIDERS: ATTEND Nurse Practitioner Women's Health
DX: R10.9 Unspecified abdominal pain (principal); Z87.440 Personal history of urinary (tract) infections
CPT/HCPCS: 81001; G0463

== ENCOUNTER → 2018-04-16 | Outpatient (CLI) | payer MEDICARE, MEDICAID ==
--- NOTE | 2018-04-16 10:16 | REP ---
CT ABDOMEN PELVIS WITHOUT IV OR ORAL CONTRAST: HISTORY: Left flank pain. Kidney stone. COMPARISON STUDY: November 09, 2017. CT FINDINGS: Digital preliminary deli slicer radiograph demonstrates a normal bowel gas pattern. Bilateral hip arthroplasties are seen and there are surgical clips in the right upper quadrant. The lung bases are clear on axial CT images with lung windows. Fairly prominent vascular calcification is noted. No focal liver or spleen lesion is seen. No adrenal lesion is observed. The pancreas is unremarkable. The gallbladder is surgically absent. The urinary bladder is mildly distended but appears intact. There is no evidence of hydronephrosis on either side. There are small bilateral cysts in each kidney. The largest is on the right measuring 3.4 cm in diameter. These findings are unchanged. There is no evidence of pelvic mass or adenopathy. No abdominal wall defect is seen. The aorta is heavily calcified but normal in caliber. No bony destructive lesion. IMPRESSION: No acute abnormality. Post cholecystectomy. Bilateral small renal cortical cysts. The uterus is surgically absent as well. Electronically Signed by Memo Potter MD 04/16/2018 10:38 A
== END ==
LOC: M RAD 08:46
PROVIDERS: ATTEND Nurse Practitioner Women's Health
DX: N20.0 Calculus of kidney (principal)

== ENCOUNTER → 2018-06-07 | Outpatient (CLI) | payer MEDICARE, MEDICAID ==
[~2018-06-07] MED LIST changes: +MACR100C43 PO; +PYRI1TAB5 PO
--- NOTE | 2018-06-07 15:08 | REP ---
CHEST PA AND LATERAL: 06/07/2018 COMPARISON: 12/30/2017. CLINICAL HISTORY: Chest pain. FINDINGS: Two views show the lungs somewhat hyperinflated. Flattening of the diaphragms, increase the AP diameter with prominence of the retrosternal clear space, again seen. There is no pleural effusion, lateral pleural thickening, apical scarring or pneumothorax. No pneumomediastinum. No dense consolidation, pulmonary nodule or parenchymal mass visible. There is atherosclerotic calcification and some tortuosity of the aorta without aneurysm. Airway midline. No cardiomegaly, vascular redistribution or edema. Pulmonary artery is mildly prominent centrally suggesting some pulmonary artery hypertension. There is a dextroconvex curve of the mid and lower thoracic spine without compression deformity of destructive lesion. Disc space narrowing and marginal osteophytes are present in the spine. There are surgical clips in the upper abdomen on the lateral view. IMPRESSION: 1. Hyperinflation and changes of COPD with pulmonary artery hypertension and some emphysematous changes mid and upper lung zone. No acute infiltrate, effusion, pulmonary nodule, parenchymal mass, pleural thickening or pneumothorax. 2. Heart and mediastinal silhouette unchanged. No gross cardiomegaly or pulmonary edema. 3. Degenerative changes spine. Electronically Signed by Kishore Gale MD 06/07/2018 07:56 P
== END ==
LOC: M WUC 14:04
PROVIDERS: ATTEND Family Medicine
DX: J44.9 Chronic obstructive pulmonary disease, unspecified (principal); I27.0 Primary pulmonary hypertension; R07.89 Other chest pain
CPT/HCPCS: 71046; G0463

== ENCOUNTER 2018-06-14 20:44 | Emergency (ER) | payer MEDICARE, MEDICAID ==
[~2018-06-14] VITALS: Ht 154.9 cm; Wt 62.7 kg
[~2018-06-14 20:44] MED LIST changes: -MACR100C43 PO; -PYRI1TAB5 PO
[2018-06-14] MEDS ORDERED: NS 1,000 ML IV ONE (22:30)
[2018-06-14 22:47] LABS: BASO % 0.3 % (0.0-1.0); EOS # 0.1 10^3/uL (0.0-0.50); EOS % 1.3 % (0.0-3.0); HEMATOCRIT 33.1 % (36.0-47.0); HEMOGLOBIN 11.2 g/dl (12.0-15.5); LYMPH # 1.8 10^3/uL (1.5-4.5); LYMPH % 23.8 % (24.0-44.0); MEAN CORPUSCULAR HEMOGLOBIN 31.6 pg (27.0-33.0); MEAN CORPUSCULAR HGB CONC 33.8 g/dl (32.0-36.5); MEAN CORPUSCULAR VOLUME 93.5 fl (80.0-96.0); MONO # 0.6 10^3/uL (0.0-0.8); MONO % 8.3 % (0.0-5.0); NEUTROPHILS % 65.9 % (36.0-66.0); PLATELET COUNT, AUTOMATED 211 10^3/uL (150-450); RED BLOOD COUNT 3.54 10^6/uL (4.00-5.40); WHITE BLOOD COUNT 7.6 10^3/uL (4.0-10.0)
[2018-06-14 23:03] LABS: INR 0.95; PROTHROMBIN TIME 12.8 SECONDS (12.1-14.4)
[2018-06-14 23:04] LABS: PARTIAL THROMBOPLASTIN TIME 30.3 SECONDS (25.4-37.6)
[2018-06-14 23:06] LABS: CALCIUM LEVEL 8.5 MG/DL (8.8-10.2); CREATININE FOR GFR 1.25 MG/DL (0.55-1.30); GLOMERULAR FILTRATION RATE 44.6 (>39); POTASSIUM SERUM 3.6 MEQ/L (3.5-5.1)
--- NOTE | 2018-06-15 00:09 | REPVR ---
EXAM: CT Abdomen and Pelvis Without Contrast EXAM DATE/TIME: 06/14/2018 10:59 PM CLINICAL HISTORY: 72 years old, female; Pain; Abdominal pain; Generalized; Prior surgery; Additional info: Painful hematuria TECHNIQUE: Axial computed tomography images of the abdomen and pelvis without contrast. All CT scans at this facility use at least one of these dose optimization techniques: automated exposure control; mA and/or kV adjustment per patient size (includes targeted exams where dose is matched to clinical indication); or iterative reconstruction. Coronal and sagittal reformatted images were created and reviewed. COMPARISON: CT ABD PELVIS W/O CONTRAST 04/16/2018 8:53 AM FINDINGS: Lower thorax: 3 millimeters noncalcified nodule right lung base likely post inflammatory. No followup required. ABDOMEN: Liver: Normal. No mass. Gallbladder and bile ducts: There has been a cholecystectomy. Pancreas: Normal. No ductal dilation. Spleen: Normal. No splenomegaly. Adrenals: There is bilateral adrenal hyperplasia. Kidneys and ureters: Multiple bilateral renal cysts measure up to 3.6 cm. in the right kidney. Stomach and bowel: There is increased feces throughout the colon consistent with constipation. Polypoid filling defect in the cecum measures 3 centimeters. Clinical correlation to exclude a mass or polyp suggested. Appendix: No evidence of appendicitis. PELVIS: Bladder: Unremarkable as visualized. Reproductive: There has been a hysterectomy. ABDOMEN and PELVIS: Intraperitoneal space: See Lymph Nodes Finding. Bones/joints: Status post bilateral hip replacements. Soft tissues: Unremarkable. Vasculature: The aorta demonstrates moderate atherosclerotic calcification. Lymph nodes: These increased density in the central mesentery with small mesenteric lymph nodes. Findings can be associated with mesenteric panniculitis in the appropriate clinical setting. IMPRESSION: 1. There has been a cholecystectomy. 2. There is bilateral adrenal hyperplasia. 3. These increased density in the central mesentery with small mesenteric lymph nodes. Findings can be associated with mesenteric panniculitis in the appropriate clinical setting. 4. There is increased feces throughout the colon consistent with constipation. 5. Polypoid filling defect in the cecum measures 3 centimeters. Clinical correlation to exclude a mass or polyp suggested. 6. There has been a hysterectomy. Electronically signed by: Leander Escamilla On 06/15/2018 00:08:54 AM
[2018-06-15] MEDS ORDERED: PHENAZOPYRIDINE 100 MG TAB PO ONE (00:45)
[2018-06-15] MEDS ORDERED: NITROFURANTOIN (MACROBID) 100 MG CAP PO ONE (00:45)
[2018-06-15] MEDS ORDERED: MACR100C43 PO (00:48)
[2018-06-15] MEDS ORDERED: PYRI1TAB5 PO (00:48)
[2018-06-15 01:11] VITALS: BP 155/69
--- NOTE | 2018-06-15 09:58 | ED PDOC ---
Post-Departure Follow-Up dr davis faxed formal report of ct abd/p fr fu Sai Guardado MD Jun 15, 2018 09:58
== END 2018-06-15 01:13 | disposition home or self-care (01) ==
LOC: M ED 20:44
DX: N30.01 Acute cystitis with hematuria (principal); R30.0 Dysuria; R31.0 Gross hematuria; E27.8 Other specified disorders of adrenal gland; R59.0 Localized enlarged lymph nodes; I25.10 Atherosclerotic heart disease of native coronary artery without angina pectoris; Z86.73 Personal history of transient ischemic attack (TIA), and cerebral infarction without residual deficits; I10 Essential (primary) hypertension; N18.9 Chronic kidney disease, unspecified; Z87.891 Personal history of nicotine dependence; Z79.82 Long term (current) use of aspirin; Z79.899 Other long term (current) drug therapy; Z88.8 Allergy status to other drugs, medicaments and biological substances; Z88.6 Allergy status to analgesic agent; Z88.2 Allergy status to sulfonamides; Z88.1 Allergy status to other antibiotic agents

== ENCOUNTER → 2018-07-02 | Outpatient (REF) | payer MEDICARE, MEDICAID ==
[~2018-07-02] MED LIST changes: +ACET-716 PO; -ACET30TAB PO; +HYDR-3715 PO; +MACR100C43 PO; -NORCOTAB PO; +PYRI1TAB5 PO; +VITA100018 PO; -VITA100072 PO
[2018-07-02 12:14] LABS: AMORPHOUS SEDIMENT SMALL (NEGATIVE); APPEARANCE, URINE TURBID (CLEAR); BACTERIA, URINE AUTO 3+ (NEGATIVE); BILIRUBIN, URINE AUTO NEGATIVE (NEGATIVE); BLOOD, URINE BLOOD 2+ (NEGATIVE); COLOR, URINE AMBER (YELLOW); GLUCOSE, URINE (UA) AUTO NEGATIVE (NEGATIVE); KETONE, URINE AUTO NEGATIVE (NEGATIVE); LEUKOCYTE ESTERASE, URINE AUTO 3+ (NEGATIVE); NITRITE, URINE AUTO NEGATIVE (NEGATIVE); PROTEIN, URINE AUTO 1+ mg/dL (NEGATIVE); RBC, URINE AUTO 20 /HPF (0-3); SPECIFIC GRAVITY URINE AUTO 1.009 (1.002-1.035); SQUAMOUS EPITHELIAL CELL UR AU 1 /HPF (0-6); UROBILINOGEN, URINE AUTO 0.2 mg/dL (0.0-2.0); WBC, URINE AUTO TNTC /HPF (0-3)
== END ==
LOC: M SMT 11:33
PROVIDERS: ATTEND Physician Assistant
DX: R30.0 Dysuria (principal)

== ENCOUNTER → 2018-07-19 | Outpatient (REF) | payer MEDICARE, MEDICAID ==
[2018-07-19 12:52] LABS: APPEARANCE, URINE TURBID (CLEAR); BACTERIA, URINE AUTO 1+ (NEGATIVE); BILIRUBIN, URINE AUTO NEGATIVE (NEGATIVE); BLOOD, URINE BLOOD 1+ (NEGATIVE); COLOR, URINE YELLOW (YELLOW); GLUCOSE, URINE (UA) AUTO NEGATIVE (NEGATIVE); KETONE, URINE AUTO NEGATIVE (NEGATIVE); LEUKOCYTE ESTERASE, URINE AUTO 3+ (NEGATIVE); MUCUS, URINE SMALL (NEGATIVE); NITRITE, URINE AUTO POSITIVE (NEGATIVE); PROTEIN, URINE AUTO NEGATIVE (NEGATIVE); RBC, URINE AUTO 10 /HPF (0-3); SPECIFIC GRAVITY URINE AUTO 1.009 (1.002-1.035); SQUAMOUS EPITHELIAL CELL UR AU 2 /HPF (0-6); UROBILINOGEN, URINE AUTO 0.2 mg/dL (0.0-2.0); WBC, URINE AUTO TNTC /HPF (0-3)
[2018-07-19 12:57] LABS: HEMATOCRIT 34.9 % (36.0-47.0); HEMOGLOBIN 11.1 g/dl (12.0-15.5); MEAN CORPUSCULAR HEMOGLOBIN 31.1 pg (27.0-33.0); MEAN CORPUSCULAR HGB CONC 31.8 g/dl (32.0-36.5); MEAN CORPUSCULAR VOLUME 97.8 fl (80.0-96.0); PLATELET COUNT, AUTOMATED 223 10^3/uL (150-450); RED BLOOD COUNT 3.57 10^6/uL (4.00-5.40); WHITE BLOOD COUNT 5.1 10^3/uL (4.0-10.0)
[2018-07-19 13:26] LABS: BILIRUBIN,TOTAL 0.4 MG/DL (0.2-1.0); CALCIUM LEVEL 9.5 MG/DL (8.8-10.2); CHOLESTEROL RISK RATIO 4.434 (<5); CREATININE FOR GFR 1.39 MG/DL (0.55-1.30); GLOMERULAR FILTRATION RATE 39.5 (>39); MAGNESIUM LEVEL 2.2 MG/DL (1.8-2.4); POTASSIUM SERUM 4.2 MEQ/L (3.5-5.1); THYROID STIMULATING HORMONE 3.36 uIU/ML (0.358-3.740); TOTAL PROTEIN 7.3 GM/DL (6.4-8.2)
[2018-07-19 14:09] LABS: PTH INTACT 54.6 PG/ML (18.5-88.0)
== END ==
LOC: M SFHCPLAZ 11:34
PROVIDERS: ATTEND Internal Medicine
DX: I12.9 Hypertensive chronic kidney disease with stage 1 through stage 4 chronic kidney disease, or unspecified chronic kidney disease (principal); E78.00 Pure hypercholesterolemia, unspecified; E03.9 Hypothyroidism, unspecified; N18.3 Chronic kidney disease, stage 3 (moderate); D63.1 Anemia in chronic kidney disease; Z87.440 Personal history of urinary (tract) infections; N20.0 Calculus of kidney; D12.0 Benign neoplasm of cecum
CPT/HCPCS: 36415; 80053; 80061; 81001; 83735; 83970; 84443; 85027; 87088; 87186; G0463

== ENCOUNTER 2018-09-06 08:46 | Day surgery (SDC) | payer MEDICARE, MEDICAID ==
[~2018-09-06] VITALS: Ht 157.5 cm; Wt 64.9 kg
[~2018-09-06 08:46] MED LIST changes: +MAGN400T2 PO; +MIRA3350 PO; +MOM30SS2 PO
[2018-09-06] MEDS ORDERED: LIDOCAINE 2% INJ 100 MG/5 ML SDV (FOR ANES.) As Ordered ONE (09:43)
[2018-09-06] MEDS ORDERED: PROPOFOL 200 MG/20 ML VIAL As Ordered ONE ×2 (09:43→11:07)
[2018-09-06] MEDS ORDERED: NS 1,000 ML IV ONE (10:00)
[2018-09-06] MEDS ORDERED: LABETALOL HCL 100 MG/20 ML VIAL As Ordered ONE (11:17)
--- NOTE | 2018-09-06 11:52 | ROOR ---
Patient Name: Patsy Morales Procedure Date: 09/06/2018 10:45 AM Date of : 1945 Age: 72 Room: [facility] Gender: Female Note Status: Finalized Procedure: Colonoscopy Indications: Screening for colorectal malignant neoplasm Providers: Sean Oseguera MD Referring MD: Jalen Foley MD Requesting Provider: Medicines: Monitored Anesthesia Care Complications: No immediate complications. Procedure: Pre-Anesthesia Assessment: - Prior to the procedure, a History and Physical was performed, and patient medications and allergies were reviewed. The patient is competent. The risks and benefits of the procedure and the sedation options and risks were discussed with the patient. All questions were answered and informed consent was obtained. Patient identification and proposed procedure were verified by the physician, the nurse and the anesthesiologist in the procedure room. Mental Status Examination: alert and oriented. Airway Examination: normal oropharyngeal airway and neck mobility. Respiratory Examination: clear to auscultation. CV Examination: normal. Prophylactic Antibiotics: The patient does not require prophylactic antibiotics. Prior Anticoagulants: The patient has taken Plavix (clopidogrel), last dose was 5 days prior to procedure. ASA Grade Assessment: III - A patient with severe systemic disease. After reviewing the risks and benefits, the patient was deemed in satisfactory condition to undergo the procedure. The anesthesia plan was to use monitored anesthesia care (MAC). Immediately prior to administration of medications, the patient was re-assessed for adequacy to receive sedatives. The heart rate, respiratory rate, oxygen saturations, blood pressure, adequacy of pulmonary ventilation, and response to care were monitored throughout the procedure. The physical status of the patient was re-assessed after the procedure. The Colonoscope was introduced through the anus and advanced to the cecum, identified by appendiceal orifice and ileocecal valve. The colonoscopy was technically difficult and complex due to restricted mobility of the colon and a tortuous colon. Successful completion of the procedure was aided by withdrawing the scope and replacing with the enteroscope. The patient tolerated the procedure well. The quality of the bowel preparation was good. The ileocecal valve, appendiceal orifice, and rectum were photographed. Scope insertion time was 5 minutes. Scope withdrawal time was 10 minutes. The total duration of the procedure was 20 minutes. Findings: The perianal and digital rectal examinations were normal. A 4 mm polyp was found in the cecum. The polyp was sessile. The polyp was removed with a cold biopsy forceps. Resection and retrieval were complete. Verification of patient identification for the specimen was done by the physician and nurse using the patient's name, date and medical record number. Estimated blood loss was minimal. Three sessile polyps were found in the ascending colon. The polyps were 5 to 8 mm in size. These polyps were removed with a cold snare. Resection and retrieval were complete. Multiple small and large-mouthed diverticula were found in the sigmoid colon. There was no evidence of diverticular bleeding. Non-bleeding external and internal hemorrhoids were found during retroflexion. The hemorrhoids were medium-sized. Impression: - One 4 mm polyp in the cecum, removed with a cold biopsy forceps. Resected and retrieved. - Three 5 to 8 mm polyps in the ascending colon, removed with a cold snare. Resected and retrieved. - Moderate diverticulosis in the sigmoid colon. There was no evidence of diverticular bleeding. - Non-bleeding external and internal hemorrhoids. Recommendation: - Patient has a contact number available for emergencies. The signs and symptoms of potential delayed complications were discussed with the patient. Return to normal activities tomorrow. Written discharge instructions were provided to the patient. - High fiber diet. - Resume Plavix (clopidogrel) at prior dose in 3 days. Refer to primary physician for further adjustment of therapy. - Await pathology results. - Repeat colonoscopy in 3 - 5 years for surveillance based on pathology results. - Return to GI clinic in [facility] (address [address], [address], [place], [facility]) in 4 -- 6 weeks. Please call GI clinic @ [phone] for apppointment date and time. - Return to primary care physician. Sean Oseguera MD Sean Oseguera MD 09/06/2018 11:51:58 AM Electronically signed by Sean Oseguera MD Number of Addenda: 0 Note Initiated On: 09/06/2018 10:45 AM Estimated Blood Loss: Estimated blood loss was minimal.
[2018-09-06 12:13] VITALS: BP 150/68
== END 2018-09-06 12:14 | disposition home or self-care (01) ==
LOC: M OPP 08:46
PROVIDERS: ATTEND Internal Medicine Gastroenterology
DX: R19.5 Other fecal abnormalities (principal); D64.9 Anemia, unspecified; R93.5 Abnormal findings on diagnostic imaging of other abdominal regions, including retroperitoneum; D12.0 Benign neoplasm of cecum; D12.2 Benign neoplasm of ascending colon; K64.8 Other hemorrhoids; K57.30 Diverticulosis of large intestine without perforation or abscess without bleeding; Z79.82 Long term (current) use of aspirin; Z79.899 Other long term (current) drug therapy; Z88.0 Allergy status to penicillin; Z88.2 Allergy status to sulfonamides; Z88.8 Allergy status to other drugs, medicaments and biological substances; Z87.891 Personal history of nicotine dependence

== ENCOUNTER → 2018-09-10 | Outpatient (CLI) | payer MEDICARE, MEDICAID ==
--- NOTE | 2018-09-10 12:15 | REP ---
Chest x-ray: Two views. History: Cough. Comparison chest x-ray: June 07, 2018. Findings: There is a new infiltrate in the lingular segment of the left upper lobe consistent with pneumonia. Vascular calcifications noted. Heart size is borderline unchanged. Lung birch are otherwise clear. There are clips in right upper quadrant of the abdomen. Pulmonary vasculature is not increased. There is an old healed rib fracture on the left. Impression: Lingular infiltrate consistent with pneumonia. Follow up radiographs recommended. Electronically Signed by Memo Potter MD 09/10/2018 12:07 P
== END ==
LOC: M WUC 10:33
PROVIDERS: ATTEND Physician Assistant
DX: R91.8 Other nonspecific abnormal finding of lung field (principal)

== ENCOUNTER → 2018-09-16 | Outpatient (CLI) | payer MEDICARE, MEDICAID ==
--- NOTE | 2018-09-16 13:52 | REP ---
CHEST X-RAY: Two views. HISTORY: Pneumonia. COMPARISON CHEST X-RAY: September 10, 2018 and June 07, 2018. FINDINGS: There is a mild S-shaped thoracolumbar curve. Clips are noted right upper quadrant of the abdomen. Pleural angles are sharp. There are some residual increased markings in the distribution of the lingula at the left base adjacent to the left heart border. This is somewhat improved on the lateral radiograph compared to the most recent prior study. Some of this is undoubtedly epicardial fat as well. Heart size is normal and unchanged. The aorta is calcific. IMPRESSION: Improved lingular infiltrate. Electronically Signed by Memo Potter MD 09/16/2018 02:23 P
== END ==
LOC: M WUC 11:56
PROVIDERS: ATTEND Physician Assistant
DX: J18.9 Pneumonia, unspecified organism (principal)

== ENCOUNTER → 2018-10-25 | Outpatient (CLI) | payer MEDICARE, MEDICAID ==
[~2018-10-25] MED LIST changes: -OMEP20CA3 PO; +OMEP20CA4 PO
--- NOTE | 2018-10-25 10:53 | REP ---
Clinical: History of pneumonia. Comparison: 09/16/2018, 09/10/2018. Technique: PA and lateral. Findings: The mediastinum and cardiac silhouette are normal. The lung birch demonstrate mild chronic-appearing changes primarily involving the right costophrenic angle and left base. Previous lingular infiltrate has essentially resolved although minimal chronic-appearing changes at the left lower lung zone are suspected. The skeletal structures are intact and normal. Impression: 1. No acute cardiopulmonary process. 2. Mild chronic changes primarily involving the bilateral bases. 3. Previous lingular infiltrate essentially resolved. Electronically Signed by Tommy Pimentel MD 10/25/2018 10:45 A
== END ==
LOC: M WUC 10:24
PROVIDERS: ATTEND Internal Medicine
DX: Z87.01 Personal history of pneumonia (recurrent) (principal)

== ENCOUNTER → 2018-11-11 | Outpatient (REF) | payer MEDICARE, MEDICAID ==
[~2018-11-11] MED LIST changes: +LIDO5DIS41 TOP; -MECL-68 PO; +MECL1TAB31 PO; +OMEP1CAP73 PO; -OMEP20CA4 PO
[2018-11-11 13:37] LABS: APPEARANCE, URINE CLEAR (CLEAR); BACTERIA, URINE AUTO NEGATIVE (NEGATIVE); BILIRUBIN, URINE AUTO NEGATIVE (NEGATIVE); BLOOD, URINE BLOOD NEGATIVE (NEGATIVE); COLOR, URINE STRAW (YELLOW); GLUCOSE, URINE (UA) AUTO NEGATIVE (NEGATIVE); KETONE, URINE AUTO NEGATIVE (NEGATIVE); LEUKOCYTE ESTERASE, URINE AUTO NEGATIVE (NEGATIVE); MUCUS, URINE SMALL (NEGATIVE); NITRITE, URINE AUTO NEGATIVE (NEGATIVE); PROTEIN, URINE AUTO NEGATIVE (NEGATIVE); RBC, URINE AUTO 1 /HPF (0-3); SQUAMOUS EPITHELIAL CELL UR AU 0 /HPF (0-6); UROBILINOGEN, URINE AUTO 0.2 mg/dL (0.0-2.0); WBC, URINE AUTO 1 /HPF (0-3)
== END ==
LOC: M SMT 13:01
PROVIDERS: ATTEND Nurse Practitioner Women's Health
DX: Z87.440 Personal history of urinary (tract) infections (principal)

== ENCOUNTER → 2018-12-12 | Outpatient (CLI) | payer MEDICARE, MEDICAID ==
[2018-12-12 18:11] LABS: BASO % 0.4 % (0.0-1.0); EOS # 0.2 10^3/uL (0.0-0.5); EOS % 4.5 % (0.0-3.0); HEMATOCRIT 33.8 % (36.0-47.0); HEMOGLOBIN 10.5 g/dl (12.0-15.5); LYMPH # 1.4 10^3/uL (1.5-5.0); LYMPH % 28.3 % (24.0-44.0); MEAN CORPUSCULAR HEMOGLOBIN 30.6 pg (27.0-33.0); MEAN CORPUSCULAR HGB CONC 31.1 g/dl (32.0-36.5); MEAN CORPUSCULAR VOLUME 98.5 fl (80.0-96.0); MONO # 0.5 10^3/uL (0.0-0.8); MONO % 9.7 % (0.0-5.0); NEUTROPHILS # 2.7 10^3/uL (1.5-8.5); NEUTROPHILS % 56.1 % (36.0-66.0); PLATELET COUNT, AUTOMATED 206 10^3/uL (150-450); RED BLOOD COUNT 3.43 10^6/uL (4.00-5.40); WHITE BLOOD COUNT 4.9 10^3/uL (4.0-10.0)
[2018-12-12 18:43] LABS: ALBUMIN 3.4 GM/DL (3.2-5.2); BILIRUBIN,TOTAL 0.3 MG/DL (0.2-1.0); CALCIUM LEVEL 8.4 MG/DL (8.8-10.2); CHOLESTEROL RISK RATIO 3.517 (<5); CREATININE FOR GFR 1.41 MG/DL (0.55-1.30); GLOMERULAR FILTRATION RATE 38.7 (>39); MAGNESIUM LEVEL 2.8 MG/DL (1.8-2.4); POTASSIUM SERUM 4.7 MEQ/L (3.5-5.1); THYROID STIMULATING HORMONE 0.564 uIU/ML (0.358-3.740); TOTAL PROTEIN 6.2 GM/DL (6.4-8.2)
[2018-12-13 09:51] LABS: PTH INTACT 116.2 PG/ML (18.5-88.0); TOTAL 25(OH) VITAMIN D 58.9 NG/ML (30.0-100.0)
== END ==
LOC: M WUC 08:52
PROVIDERS: ATTEND Internal Medicine
DX: N18.3 Chronic kidney disease, stage 3 (moderate) (principal); E03.9 Hypothyroidism, unspecified; E78.00 Pure hypercholesterolemia, unspecified; D63.1 Anemia in chronic kidney disease

== ENCOUNTER → 2018-12-24 | Outpatient (CLI) | payer MEDICARE, MEDICAID ==
[~2018-12-24] MED LIST changes: -LIDO5DIS41 TOP; +MECL-68 PO; -MECL1TAB31 PO; -OMEP1CAP73 PO; +OMEP20CA4 PO
--- NOTE | 2018-12-28 14:46 | DEXA ---
AP SPINE L1 - L4 1.066 -1.0 0.7 LT FEMUR TOTAL LEFT RADIUS 33% 0.637 -2.7 -0.5 RT FEMUR TOTAL RT NECK TOTAL BODY TOTAL OTHER COMMENTS: There is low bone density of the spine. 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 The increased density of the spine does not represent a significant change. The density of the spine is increased 9.8% since the initial exam on 01/25/1999. The spine density has increased 1.8% since the most recent exam on 04/08/2013. Left hip replacement. Right hip replacement. FOLLOW-UP: Recommendation for the next bone density exam: 2 years. VON
== END ==
LOC: M WHC 12:29
PROVIDERS: ATTEND Internal Medicine
DX: M81.0 Age-related osteoporosis without current pathological fracture (principal)

== ENCOUNTER → 2019-04-02 | Outpatient (CLI) | payer MEDICARE, MEDICAID ==
[~2019-04-02] MED LIST changes: +OMEP-172 PO; -OMEP20CA4 PO
--- NOTE | 2019-04-02 13:51 | REP ---
CHEST X-RAY: Two views. HISTORY: Shortness of breath. COMPARISON CHEST X-RAY: October 25, 2018. FINDINGS: The lungs are slightly hyperinflated but free of infiltrate. Pleural angles are sharp. Heart is not enlarged. The aorta is calcific and somewhat tortuous. Vascular calcification is seen in the carotid region of the neck as before. Pulmonary vasculature is not increased. There are clips in right upper quadrant of the abdomen. IMPRESSION: Mild hyperinflation. Otherwise no acute disease. Electronically Signed by Memo Potter MD 04/02/2019 04:10 P
== END ==
LOC: M WUC 12:25
PROVIDERS: ATTEND Physician Assistant
DX: R06.02 Shortness of breath (principal); I70.0 Atherosclerosis of aorta; J98.4 Other disorders of lung

== ENCOUNTER 2019-04-10 08:31 | Emergency (ER) | payer MEDICARE, MEDICAID ==
[~2019-04-10] VITALS: Ht 157.5 cm; Wt 66.0 kg
[~2019-04-10 08:31] MED LIST changes: -MECL-68 PO; +MECL1TAB31 PO; -OMEP-172 PO; +OMEP1CAP73 PO
[2019-04-10] MEDS ORDERED: ONDANSETRON 4MG/2ML VIAL (J2405) IV ONE (09:15)
[2019-04-10 09:25] LABS: BASO % 0.6 % (0.0-1.0); EOS # 0.1 10^3/uL (0.0-0.5); EOS % 1.9 % (0.0-3.0); HEMOGLOBIN 11.1 g/dl (12.0-15.5); LYMPH % 27.6 % (24.0-44.0); MEAN CORPUSCULAR HEMOGLOBIN 30.6 pg (27.0-33.0); MEAN CORPUSCULAR HGB CONC 31.7 g/dl (32.0-36.5); MEAN CORPUSCULAR VOLUME 96.4 fl (80.0-96.0); MONO # 0.6 10^3/uL (0.0-0.8); MONO % 8.5 % (0.0-5.0); NEUTROPHILS # 4.3 10^3/uL (1.5-8.5); NEUTROPHILS % 60.1 % (36.0-66.0); PLATELET COUNT, AUTOMATED 211 10^3/uL (150-450); RED BLOOD COUNT 3.63 10^6/uL (4.00-5.40); WHITE BLOOD COUNT 7.2 10^3/uL (4.0-10.0)
[2019-04-10 10:00] LABS: ALBUMIN 3.6 GM/DL (3.2-5.2); ALT/SGPT 24 U/L (12-78); BILIRUBIN,DIRECT 0.1 MG/DL (0.0-0.2); BILIRUBIN,TOTAL 0.5 MG/DL (0.2-1.0); BLOOD UREA NITROGEN 39 MG/DL (7-18); CALCIUM LEVEL 8.8 MG/DL (8.8-10.2); CARBON DIOXIDE LEVEL 27 MEQ/L (21-32); CHLORIDE LEVEL 106 MEQ/L (98-107); CK-MB VALUE MASS < 1.0 NG/ML (<3.6); CPK CREATINE PHOSPHOKINASE 53 U/L (26-192); CREATININE FOR GFR 1.67 MG/DL (0.55-1.30); GLOMERULAR FILTRATION RATE 31.8 (>39); GLUCOSE, FASTING 95 MG/DL (70-100); LIPASE 259 U/L (73-393); MB/CK RELATIVE INDEX 1.89 (< OR =4); POTASSIUM SERUM 4.3 MEQ/L (3.5-5.1); SODIUM LEVEL 142 MEQ/L (136-145); TOTAL PROTEIN 6.9 GM/DL (6.4-8.2); TROPONIN I < 0.02 NG/ML (< 0.10)
--- NOTE | 2019-04-10 10:38 | REP ---
Left lower extremity Duplex Doppler venous ultrasound: Real time compression and duplex Doppler interrogation of the left lower extremity deep venous system is performed. The left common femoral, superficial femoral and popliteal veins are fully compressible with transducer pressure and demonstrate normal spontaneous and phasic flow, without evidence of deep venous thrombosis. Impression: No evidence of deep venous thrombosis of the left lower extremity femoral popliteal venous system. Electronically Signed by Jesu Gupta MD 04/10/2019 10:29 A
[2019-04-10] MEDS ORDERED: LIDO5DIS41 TOP (13:26)
[2019-04-10 13:30] VITALS: BP 156/75
--- NOTE | 2019-04-10 20:41 | ECGEPIP ---
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
== END 2019-04-10 13:41 | disposition home or self-care (01) ==
LOC: M ED 08:31
DX: M54.16 Radiculopathy, lumbar region (principal); I25.10 Atherosclerotic heart disease of native coronary artery without angina pectoris; I25.2 Old myocardial infarction; I10 Essential (primary) hypertension; E78.5 Hyperlipidemia, unspecified; J44.9 Chronic obstructive pulmonary disease, unspecified; N18.3 Chronic kidney disease, stage 3 (moderate); Z87.442 Personal history of urinary calculi; Z95.5 Presence of coronary angioplasty implant and graft; M48.061 Spinal stenosis, lumbar region without neurogenic claudication; Z79.82 Long term (current) use of aspirin; Z79.02 Long term (current) use of antithrombotics/antiplatelets; Z79.899 Other long term (current) drug therapy; Z88.2 Allergy status to sulfonamides; Z88.0 Allergy status to penicillin; Z88.6 Allergy status to analgesic agent; Z88.8 Allergy status to other drugs, medicaments and biological substances
CPT/HCPCS: 80048; 80076; 82550; 82553; 83690; 84484; 85025; 93005; 93971; 96374; 99285; J2405

== ENCOUNTER → 2019-05-12 | Outpatient (CLI) | payer MEDICARE, MEDICAID ==
[~2019-05-12] MED LIST changes: +ISOVUE-370 76% 100ML VIAL (Q9967) As Ordered ONE; +LIDO5DIS41 TOP
--- NOTE | 2019-05-12 15:45 | REP ---
Clinical: Atherosclerotic disease with intermittent claudication. Technique: CT angiography of the abdominal lower extremity arteries using 100 ml Isovue 370 intravenous contrast material. Multiplanar MIP and 3-D volume rendered arteriograms of the abdomen and lower extremities obtained. Findings: Moderate to significant scattered calcified atheromatous plaquing noted throughout the aorta and arterial structures of the abdomen and bilateral lower extremities. Significant atheromatous plaquing noted at the origin of the celiac axis as well as the bilateral renal arteries with asymmetric atrophic appearance the left kidney suggesting underlying renal arterial stenosis causing longstanding renal arterial insufficiency. The bilateral lower extremities again demonstrate moderate to significant scattered mixed atheromatous plaquing (right greater than left) and although there is evidence for bilateral three-vessel runoff to the level of the ankles, there appears to be some element of stenosis/narrowing at the level of the right popliteal artery to the tibioperoneal trunk. Lung bases are clear. No cardiomegaly or pericardial effusion. Liver, spleen, pancreas, and bilateral adrenal glands appear normal for arterial phase enhancement. Evidence for prior cholecystectomy noted. The kidneys demonstrate bilateral simple renal cysts and mild atrophic appearance to the left kidney. The enteric system is without obstruction or acute inflammatory process. Evaluation of the deep pelvis is limited due to beam-hardening artifact from bilateral hip prosthesis. No obvious ascites. No free air. No adenopathy. Musculoskeletal structures demonstrate degenerative changes without focal abnormality. Impression: 1. Moderate atheromatous disease involving the aorta, branch vessels and bilateral lower extremities with mild atrophic appearance to the left kidney suggesting renal arterial stenosis as well as mild narrowing through the right popliteal - tibioperoneal trunk. Three-vessel runoff is otherwise noted bilaterally to the level of the ankles. 2. Bilateral renal cysts. Electronically Signed by Tommy Pimentel MD 05/12/2019 03:36 P
== END ==
LOC: M RAD 13:07
PROVIDERS: ATTEND Surgery Vascular Surgery
DX: I70.211 Atherosclerosis of native arteries of extremities with intermittent claudication, right leg (principal); I70.0 Atherosclerosis of aorta; Z96.643 Presence of artificial hip joint, bilateral; N28.1 Cyst of kidney, acquired; I70.202 Unspecified atherosclerosis of native arteries of extremities, left leg
CPT/HCPCS: 75635; Q9967

== ENCOUNTER → 2019-05-28 | Outpatient (CLI) | payer MEDICARE, MEDICAID ==
[~2019-05-28] MED LIST changes: -ISOVUE-370 76% 100ML VIAL (Q9967) As Ordered ONE
--- NOTE | 2019-05-28 14:30 | REPVR ---
PROCEDURE INFORMATION: Exam: MR Lumbar Spine Without Contrast. Exam date and time: 05/28/2019 1:49 PM Age: 73 years old Clinical indication: Patient HX: Low back pain HX stenosis and hnp TECHNIQUE: Imaging protocol: Multiplanar magnetic resonance images of the lumbar spine without intravenous contrast. COMPARISON: MRI-Spine, L.S. without con 11/24/2014 2:43 PM FINDINGS: Vertebrae: There is a large Schmorl's node in the superior endplate of the T11 vertebra. There is mild anterior wedging of the T11 vertebra. Spinal cord: Normal signal. No cord compression. L1-L2: There is degenerative disc disease including disc space narrowing and dessication. There is mild disc bulging. There is facet arthropathy and ligamentum flavum hypertrophy. L2-L3: There is disc space narrowing and desiccation. There are moderate degenerative end plate changes at this level. There is a moderate disc/osteophyte complex that flattens the ventral thecal sac. There is moderate/severe bilateral neural foraminal narrowing. There is facet arthropathy and ligamentum flavum hypertrophy. There is moderate spinal canal stenosis. L3-L4: There is minimal retrolisthesis at L3/4. There is degenerative disc disease including disc space narrowing and dessication. There is a moderate disc/osteophyte complex that flattens the ventral thecal sac. There is moderate bilateral neural foraminal narrowing. There is facet arthropathy and ligamentum flavum hypertrophy. There is mild/moderate spinal canal stenosis. L4-L5: There is grade 1 anterior spondylolisthesis at L4/5. There is disc space narrowing and desiccation. There are moderate degenerative end plate changes at this level. There is moderate disc bulging. There is moderate bilateral neural foraminal narrowing. There is exuberant bilateral facet arthropathy and ligamentum flavum hypertrophy. There is severe spinal canal stenosis. L5-S1: There is disc desiccation. There is mild bilateral neuroforaminal narrowing. There is facet arthropathy and ligamentum flavum hypertrophy. Kidneys and ureters: There are high signal lesions in both kidneys, possibly cysts, but they are not fully characterized on this MRI exam. Soft tissues: Unremarkable. Other findings: There is congenital spinal canal stenosis which is exacerbated by multilevel degenerative changes. IMPRESSION: 1. There is congenital spinal canal stenosis which is exacerbated by multilevel degenerative changes. 2. Advanced multilevel degenerative changes causing variable degrees of spinal canal and neuroforaminal narrowing as described above. 3. There is a large Schmorl's node in the superior endplate of the T11 vertebra. There is mild anterior wedging of the T11 vertebra. Electronically signed by: Arun Danielson On 05/28/2019 14:30:12 PM
== END ==
LOC: M RAD 12:48
PROVIDERS: ATTEND Surgery Vascular Surgery
DX: M79.604 Pain in right leg (principal); M79.605 Pain in left leg

== ENCOUNTER → 2019-05-31 | Outpatient (CLI) | payer MEDICARE, MEDICAID ==
--- NOTE | 2019-05-31 19:22 | REP ---
LEFT ANKLE, FOUR VIEWS: Four views of the left ankle are performed. No acute fracture or dislocation is seen. Ankle mortise is anatomic. There is mild inferior calcaneal spurring. IMPRESSION: Mild inferior calcaneal spurring. No acute abnormality. Electronically Signed by Jesu Gupta MD 06/01/2019 03:49 P
--- NOTE | 2019-05-31 19:24 | REP ---
LEFT FOOT SERIES: Four views left foot performed. No acute fracture or dislocation is seen. There is mild inferior calcaneal spurring. There is minimal joint space narrowing and subchondral sclerosis at the first metatarsophalangeal joint. IMPRESSION: Very mild degenerative changes. Electronically Signed by Jesu Gupta MD 06/01/2019 03:49 P
== END ==
LOC: M WUC 16:01
PROVIDERS: ATTEND Physician Assistant
DX: M25.572 Pain in left ankle and joints of left foot (principal); M19.072 Primary osteoarthritis, left ankle and foot; M77.32 Calcaneal spur, left foot

== ENCOUNTER 2019-09-15 08:29 | Emergency (ER) | payer MEDICARE, MEDICAID ==
[~2019-09-15] VITALS: Ht 157.5 cm; Wt 67.5 kg
[2019-09-15 08:29] VITALS: BP 173/72
[~2019-09-15 08:29] MED LIST changes: +ASPI-546 PO; -ASPI1TAB15 PO
[2019-09-15] MEDS ORDERED: REPA140I (08:39)
[2019-09-15] MEDS ORDERED: ACET1TAB16 (08:39)
[2019-09-15] MEDS ORDERED: MORPHINE 2 MG/ML 1ML VIAL (J2270) IV ONE (09:15)
[2019-09-15] MEDS ORDERED: NS 500 ML IV ONE (09:15)
[2019-09-15] MEDS ORDERED: ONDANSETRON 4MG/2ML VIAL IV ONE (09:30)
[2019-09-15 09:35] LABS: BASO % 0.4 % (0.0-1.0); EOS # 0.1 10^3/uL (0.0-0.5); EOS % 1.8 % (0.0-3.0); HEMATOCRIT 36.5 % (36.0-47.0); HEMOGLOBIN 11.6 g/dl (12.0-15.5); LYMPH % 29.6 % (24.0-44.0); MEAN CORPUSCULAR HEMOGLOBIN 31.2 pg (27.0-33.0); MEAN CORPUSCULAR HGB CONC 31.8 g/dl (32.0-36.5); MEAN CORPUSCULAR VOLUME 98.1 fl (80.0-96.0); MONO # 0.5 10^3/uL (0.0-0.8); MONO % 7.9 % (0.0-5.0); NEUTROPHILS % 59.7 % (36.0-66.0); PLATELET COUNT, AUTOMATED 223 10^3/uL (150-450); RED BLOOD COUNT 3.72 10^6/uL (4.00-5.40); WHITE BLOOD COUNT 6.7 10^3/uL (4.0-10.0)
[2019-09-15 09:57] LABS: ALBUMIN 3.8 GM/DL (3.2-5.2); ALT/SGPT 23 U/L (12-78); BILIRUBIN,DIRECT < 0.1 MG/DL (0.0-0.2); BILIRUBIN,TOTAL 0.4 MG/DL (0.2-1.0); BLOOD UREA NITROGEN 40 MG/DL (7-18); CALCIUM LEVEL 8.8 MG/DL (8.8-10.2); CARBON DIOXIDE LEVEL 29 MEQ/L (21-32); CHLORIDE LEVEL 106 MEQ/L (98-107); CREATININE FOR GFR 1.62 MG/DL (0.55-1.30); GLUCOSE, FASTING 102 MG/DL (70-100); LIPASE 298 U/L (73-393); POTASSIUM SERUM 3.9 MEQ/L (3.5-5.1); SODIUM LEVEL 141 MEQ/L (136-145); TOTAL PROTEIN 7.3 GM/DL (6.4-8.2)
--- NOTE | 2019-09-15 10:39 | REP ---
CT ABDOMEN AND PELVIS WITHOUT IV OR ORAL CONTRAST: Renal stone protocol. HISTORY: Left flank and left lower quadrant pain. Comparison abdomen CT imaging May 12, 2019. 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 The lung bases are clear on axial CT images. The liver and spleen are normal in size homogeneous in texture. There are clips in the gallbladder fossa. No abnormality is noted in the pancreas. Normal adrenal glands are seen. There is bilateral renal cortical atrophy. There are small bilateral cortical cysts. The largest of these is in the right mid kidney measuring 3.7 cm in greatest diameter. These are unchanged. No hydronephrosis is seen. There are several calcifications in the left kidney and one on the right which could be renal stones. There is vascular calcification in the central renal sinus particularly on the left as well. I suspect a 3 mm intrarenal calculus in the upper pole collecting system on the left. In any event, these calcifications are unchanged. There is no evidence of hydronephrosis. An extrarenal pelvis configuration is seen on the right unchanged. No ureteral calculus is evident. There is considerable spray artifact across the mid pelvis and posterior bladder on scans at this level due to the metallic hip prosthesis components. No bladder calculus is seen. No abdominal wall defect is observed. Small and large bowel loops are unremarkable. Aorta is normal in caliber but heavily calcified. The appendix and uterus are surgically absent by history. IMPRESSION: Extensive vascular calcification. Bilateral hip replacements. Renal cortical atrophy without hydronephrosis. Suspect intrarenal calculus upper pole left kidney 3 mm ear. Post cholecystectomy, appendectomy, and hysterectomy. Electronically Signed by Memo Potter MD 09/15/2019 01:34 P
[2019-09-15] MEDS ORDERED: PERC5TAB12 PO (11:29)
[2019-09-15] MEDS ORDERED: LIDOCAINE 5% (LIDODERM) PATCH TD ONE (11:30)
[2019-09-15] MEDS ORDERED: **NOTE PATIENT COMMENT** MISC XX SCH (21:00)
== END 2019-09-15 11:43 | disposition home or self-care (01) ==
LOC: M ED 08:29
DX: M54.16 Radiculopathy, lumbar region (principal); N20.0 Calculus of kidney; N18.3 Chronic kidney disease, stage 3 (moderate); G89.29 Other chronic pain; Z98.61 Coronary angioplasty status; I50.9 Heart failure, unspecified; I48.91 Unspecified atrial fibrillation; I25.2 Old myocardial infarction; E78.00 Pure hypercholesterolemia, unspecified; J44.9 Chronic obstructive pulmonary disease, unspecified; G47.30 Sleep apnea, unspecified; Z87.01 Personal history of pneumonia (recurrent); Z87.891 Personal history of nicotine dependence; K21.9 Gastro-esophageal reflux disease without esophagitis; Z87.442 Personal history of urinary calculi; Z87.440 Personal history of urinary (tract) infections; M48.061 Spinal stenosis, lumbar region without neurogenic claudication; M81.0 Age-related osteoporosis without current pathological fracture; D75.9 Disease of blood and blood-forming organs, unspecified; E34.9 Endocrine disorder, unspecified; I70.1 Atherosclerosis of renal artery; Z96.643 Presence of artificial hip joint, bilateral; N26.1 Atrophy of kidney (terminal); Z79.82 Long term (current) use of aspirin; Z79.899 Other long term (current) drug therapy; Z88.2 Allergy status to sulfonamides; Z88.0 Allergy status to penicillin; Z88.6 Allergy status to analgesic agent; Z88.8 Allergy status to other drugs, medicaments and biological substances
CPT/HCPCS: 74176; 80048; 80076; 81001; 83690; 85025; 87088; 87186; 96374; 96375; 99283; J2270; J2405

== ENCOUNTER → 2020-01-02 | Outpatient (CLI) | payer MEDICARE, MEDICAID ==
[~2020-01-02] MED LIST changes: +ACET1TAB16; +REPA140I; +XANA0.5T PO
[2020-01-02 15:26] LABS: HEMATOCRIT 32.3 % (36.0-47.0); MEAN CORPUSCULAR HEMOGLOBIN 31.1 pg (27.0-33.0); MEAN CORPUSCULAR VOLUME 100.3 fl (80.0-96.0); PLATELET COUNT, AUTOMATED 211 10^3/uL (150-450); RED BLOOD COUNT 3.22 10^6/uL (4.00-5.40); WHITE BLOOD COUNT 4.4 10^3/uL (4.0-10.0)
[2020-01-02 15:57] LABS: ALBUMIN 3.4 GM/DL (3.2-5.2); BILIRUBIN,TOTAL 0.4 MG/DL (0.2-1.0); CALCIUM LEVEL 8.9 MG/DL (8.8-10.2); CHOLESTEROL RISK RATIO 1.825 (<5); CREATININE FOR GFR 1.58 MG/DL (0.55-1.30); GLOMERULAR FILTRATION RATE 33.9 (>39); POTASSIUM SERUM 4.2 MEQ/L (3.5-5.1); THYROID STIMULATING HORMONE 1.98 uIU/ML (0.358-3.740); TOTAL PROTEIN 6.3 GM/DL (6.4-8.2)
== END ==
LOC: M WUC 09:17
PROVIDERS: ATTEND Internal Medicine
DX: I12.9 Hypertensive chronic kidney disease with stage 1 through stage 4 chronic kidney disease, or unspecified chronic kidney disease (principal); N18.30 Chronic kidney disease, stage 3 unspecified; E03.9 Hypothyroidism, unspecified; E78.00 Pure hypercholesterolemia, unspecified

== ENCOUNTER 2020-01-07 15:38 | Emergency (ER) | payer MEDICARE, MEDICAID ==
[~2020-01-07] VITALS: Ht 157.5 cm; Wt 68.7 kg
[~2020-01-07 15:38] MED LIST changes: -XANA0.5T PO
[2020-01-07] MEDS ORDERED: ALPRAZolam 0.25 MG TAB PO ONE ×2 (16:15→18:00)
--- NOTE | 2020-01-07 16:34 | ECGEPIP ---
[facility] - ED Test Date: 2020-01-07 Pat Name: OJ PRINCE Department: Room: - Gender: Female Mill Hand: lucero : 1945 Requested By: ROSHAN LEON Order Number: [id number] Reading MD: Monika Rodrigues Measurements Intervals [place] Rate: 69 P: 67 ID: [id number] QRS: 13 QRSD: 160 T: 57 QT: 401 QTc: 430 Interpretive Statements SINUS RHYTHM INTRAVENTRICULAR CONDUCTION DELAY INFERIOR MYOCARDIAL INFARCTION, PROBABLY OLD NSTTW abnormalities DECREASED ECTOPY 04/10/19 Electronically Signed on 01-07-2020 16:33:58 EDT by Monika Rodrigues
[2020-01-07 17:00] LABS: ALBUMIN 3.7 GM/DL (3.2-5.2); ALT/SGPT 19 U/L (12-78); BILIRUBIN,DIRECT < 0.1 MG/DL (0.0-0.2); BILIRUBIN,TOTAL 0.3 MG/DL (0.2-1.0); CPK CREATINE PHOSPHOKINASE 81 U/L (26-192); FREE T4 1.18 NG/DL (0.76-1.46); LIPASE 369 U/L (73-393); NT-PRO BNP 1567 PG/ML (<450); THYROID STIMULATING HORMONE 0.832 uIU/ML (0.358-3.740); TOTAL PROTEIN 7.2 GM/DL (6.4-8.2)
--- NOTE | 2020-01-07 17:25 | REPVR ---
PROCEDURE INFORMATION: Exam: XR Chest, 1 View Exam date and time: 01/07/2020 4:23 PM Age: 74 years old Clinical indication: Chest pain TECHNIQUE: Imaging protocol: XR of the chest Views: 1 view. COMPARISON: CR CHEST 2 VIEW 10/25/2018 10:32 AM FINDINGS: Tubes, catheters and devices: Cardiac leads are in place. Lungs: No focal lung consolidation. Mild interstitial prominence unchanged. Pleural space: No pleural effusion. No pneumothorax. Heart/Mediastinum: No cardiomegaly. Atherosclerosis. Bones/joints: Unremarkable. Organs: Surgical clips in gallbladder fossa. IMPRESSION: No acute findings. Electronically signed by: Lili Cunningham On 01/07/2020 17:24:55 PM
[2020-01-07 17:27] LABS: BASO % 0.5 % (0.0-1.0); EOS % 0.2 % (0.0-3.0); HEMATOCRIT 32.4 % (36.0-47.0); HEMOGLOBIN 10.4 g/dl (12.0-15.5); LYMPH # 2.2 10^3/uL (1.5-5.0); LYMPH % 25.3 % (24.0-44.0); MEAN CORPUSCULAR HEMOGLOBIN 31.5 pg (27.0-33.0); MEAN CORPUSCULAR HGB CONC 32.1 g/dl (32.0-36.5); MEAN CORPUSCULAR VOLUME 98.2 fl (80.0-96.0); MONO # 0.7 10^3/uL (0.0-0.8); MONO % 8.3 % (0.0-5.0); NEUTROPHILS # 5.6 10^3/uL (1.5-8.5); NEUTROPHILS % 63.3 % (36.0-66.0); PLATELET COUNT, AUTOMATED 256 10^3/uL (150-450); WHITE BLOOD COUNT 8.9 10^3/uL (4.0-10.0)
[2020-01-07] MEDS ORDERED: CARVedilol 12.5 MG TAB PO STA (17:41)
[2020-01-07 18:13] VITALS: BP 171/86
[2020-01-07] MEDS ORDERED: XANA0.5T PO (20:05)
[2020-01-07 20:40] VITALS: BP 168/70
== END 2020-01-07 20:44 | disposition home or self-care (01) ==
LOC: M ED 15:38
DX: I10 Essential (primary) hypertension (principal); F43.0 Acute stress reaction; I48.91 Unspecified atrial fibrillation; I25.2 Old myocardial infarction; J44.9 Chronic obstructive pulmonary disease, unspecified; N18.30 Chronic kidney disease, stage 3 unspecified; E78.5 Hyperlipidemia, unspecified; K21.9 Gastro-esophageal reflux disease without esophagitis; Z98.61 Coronary angioplasty status; Z79.82 Long term (current) use of aspirin; Z79.899 Other long term (current) drug therapy; Z88.2 Allergy status to sulfonamides; Z88.0 Allergy status to penicillin; Z88.6 Allergy status to analgesic agent

== ENCOUNTER → 2020-01-27 | Outpatient (REF) | payer MEDICARE, MEDICAID ==
[~2020-01-27] MED LIST changes: +XANA0.5T PO
== END ==
LOC: M LAB REF 19:07
PROVIDERS: ATTEND Dermatology
DX: L90.5 Scar conditions and fibrosis of skin (principal)

== ENCOUNTER → 2020-06-04 | Outpatient (CLI) | payer MEDICARE, MEDICAID ==
[~2020-06-04] MED LIST changes: -FOLI400T PO; +FOLI400T13 PO
[2020-06-04 09:59] LABS: BASO % 0.5 % (0.0-1.0); EOS # 0.1 10^3/uL (0.0-0.5); EOS % 1.7 % (0.0-3.0); HEMATOCRIT 35.6 % (36.0-47.0); HEMOGLOBIN 11.1 g/dl (12.0-15.5); LYMPH # 2.2 10^3/uL (1.5-5.0); LYMPH % 34.1 % (24.0-44.0); MEAN CORPUSCULAR HEMOGLOBIN 30.3 pg (27.0-33.0); MEAN CORPUSCULAR HGB CONC 31.2 g/dl (32.0-36.5); MEAN CORPUSCULAR VOLUME 97.3 fl (80.0-96.0); MONO # 0.5 10^3/uL (0.0-0.8); MONO % 7.3 % (2.0-8.0); NEUTROPHILS # 3.6 10^3/uL (1.5-8.5); NEUTROPHILS % 55.8 % (36.0-66.0); PLATELET COUNT, AUTOMATED 250 10^3/uL (150-450); RED BLOOD COUNT 3.66 10^6/uL (4.00-5.40); WHITE BLOOD COUNT 6.5 10^3/uL (4.0-10.0)
[2020-06-04 10:32] LABS: ALBUMIN 3.8 GM/DL (3.2-5.2); BILIRUBIN,TOTAL 0.3 MG/DL (0.2-1.0); CALCIUM LEVEL 9.7 MG/DL (8.8-10.2); CREATININE FOR GFR 1.67 MG/DL (0.55-1.30); GLOMERULAR FILTRATION RATE 31.8 (>39); POTASSIUM SERUM 4.3 MEQ/L (3.5-5.1); TOTAL PROTEIN 7.4 GM/DL (6.4-8.2)
[2020-06-04 10:39] LABS: PTH INTACT 76.9 PG/ML (18.5-88.0)
== END ==
LOC: M WUC 08:03
PROVIDERS: ATTEND Internal Medicine
DX: I12.9 Hypertensive chronic kidney disease with stage 1 through stage 4 chronic kidney disease, or unspecified chronic kidney disease (principal); D63.1 Anemia in chronic kidney disease

== ENCOUNTER → 2020-06-14 | Outpatient (REF) | payer MEDICARE, MEDICAID | LOC: M LAB REF 11:35 | PROVIDERS: ATTEND Physician Assistant | DX: N39.0 Urinary tract infection, site not specified (principal) ==

== ENCOUNTER 2020-06-29 14:51 | Emergency (ER) | payer MEDICARE, MEDICAID ==
[~2020-06-29] VITALS: Ht 154.9 cm; Wt 65.6 kg
[~2020-06-29 14:51] MED LIST changes: -REPA140I; +REPA140I IM
--- NOTE | 2020-06-29 15:25 | REP ---
INDICATION: CHEST PAIN. COMPARISON: 01/07/2020. TECHNIQUE: Portable AP chest with the patient upright. FINDINGS: The lung birch are clear. Cardiac size is normal. The bong, mediastinum and skeletal structures are unremarkable. IMPRESSION: Essentially negative portable chest No interval change. <Electronically signed by Jesu Ty > 06/29/20 1526
[2020-06-29] MEDS ORDERED: ACETAMINOPHEN 325 MG TAB PO ONE (15:35)
[2020-06-29 16:08] LABS: BASO % 0.5 % (0.0-1.0); EOS # 0.1 10^3/uL (0.0-0.5); EOS % 1.8 % (0.0-3.0); HEMATOCRIT 34.4 % (36.0-47.0); LYMPH % 31.8 % (24.0-44.0); MEAN CORPUSCULAR VOLUME 96.9 fl (80.0-96.0); MONO # 0.5 10^3/uL (0.0-0.8); MONO % 8.5 % (2.0-8.0); NEUTROPHILS # 3.6 10^3/uL (1.5-8.5); NEUTROPHILS % 56.8 % (36.0-66.0); PLATELET COUNT, AUTOMATED 179 10^3/uL (150-450); RED BLOOD COUNT 3.55 10^6/uL (4.00-5.40); WHITE BLOOD COUNT 6.3 10^3/uL (4.0-10.0)
[2020-06-29] MEDS ORDERED: NS 500 ML IV ONE (16:10)
[2020-06-29 16:21] LABS: INR 0.94; PROTHROMBIN TIME 12.7 SECONDS (12.5-14.3)
[2020-06-29 16:46] LABS: CALCIUM LEVEL 8.7 MG/DL (8.8-10.2); CREATININE FOR GFR 1.63 MG/DL (0.55-1.30); GLOMERULAR FILTRATION RATE 32.7 (>39); POTASSIUM SERUM 4.3 MEQ/L (3.5-5.1)
[2020-06-29] MEDS ORDERED: ISOVUE-370 76% 100ML VIAL As Ordered ONE (17:05)
[2020-06-29] MEDS ORDERED: CARVedilol 12.5 MG TAB PO ONE (17:35)
--- NOTE | 2020-06-29 17:37 | REPVR ---
PROCEDURE INFORMATION: Exam: CTA Chest With Contrast Exam date and time: 06/29/2020 5:14 PM Age: 74 years old Clinical indication: Chest pain TECHNIQUE: Imaging protocol: Computed tomographic angiography of the chest with contrast. 3D rendering (Not supervised by radiologist): MIP and/or 3D reconstructed images were created by the technologist. Radiation optimization: All CT scans at this facility use at least one of these dose optimization techniques: automated exposure control; mA and/or kV adjustment per patient size (includes targeted exams where dose is matched to clinical indication); or iterative reconstruction. Contrast material: ISOVUE 370; Contrast volume: 75 ml; Contrast route: INTRAVENOUS (IV); COMPARISON: [facility] PORTABLE CHEST X-RAY 06/29/2020 3:20 PM FINDINGS: Pulmonary arteries: No focal pulmonary artery filling defect to suggest acute pulmonary embolus. Aorta: Thoracic aorta is ectatic and atherosclerotic. No focal aneurysm or dissection. Great vessels off aortic arch: Atherosclerotic calcifications in the coronary vessels. Lungs: Pulmonary vascular/interstitial pattern does not suggest active pulmonary edema. Atelectasis is seen in the dependent portions of the lungs. Ill-defined pleural based 4 mm nodular density at the lateral right lung base on axial image 126 and coronal image 69. Pleural spaces: No pleural effusion or pneumothorax. Heart: No overt cardiac enlargement or abnormal volume of pericardial fluid. Lymph nodes: No enlarged mediastinal lymph nodes. Gallbladder and bile ducts: Gallbladder is surgically absent. Kidneys and ureters: Multiple bilateral simple fluid density renal cysts, incompletely imaged. Bones/joints: Diffuse idiopathic skeletal hyperostosis (DISH) changes are present. Soft tissues: Unremarkable. IMPRESSION: 1. No evidence of acute pulmonary embolus. 2. Nonspecific 4 mm pleural based nodule at the lateral right lung base. Fleischner society recommendations for followup and management of nodules smaller than 8 mm detected incidentally on screening CT: Less than or equal to 4 mm: Low risk patients- no followup needed. High risk patients- followup in 12 months. If no change, no further imaging needed. 3. Incompletely imaged bilateral renal cyst which measures simple fluid density and measure up to 4 cm. These can be evaluated on outpatient basis with sonography COMMENTS: Consistent with the [employer] [place] [employer]'s Incidental Findings Committee white paper (J Am Rj Radiol 2018): Any incidental renal lesion less than 1 cm or classified as too small to characterize, or any incidental cystic renal lesion characterized as simple-appearing, is likely benign. No follow-up imaging is recommended for these lesions per consensus recommendations based on imaging criteria. Electronically signed by: Miles Marvin On 06/29/2020 17:37:35 PM
[2020-06-29 17:48] VITALS: BP 164/82
--- NOTE | 2020-06-29 19:17 | ECGEPIP ---
[facility] - ED Test Date: 2020-06-29 Pat Name: OJ PRINCE Department: Room: - Gender: Female Rn Medicare: Ricardo CASTANEDA : 1945 Requested By: Sai Rojo Order Number: [id number] Reading MD: Sai Rojo Measurements Intervals [place] Rate: 62 P: 61 UT: 174 QRS: -6 QRSD: 90 T: 55 QT: 388 QTc: 393 Interpretive Statements Normal sinus rhythm Inferior infarct , age undetermined Nonspecific ST T wave changes cw 01/07/[address] T wave changes Electronically Signed on 06-29-2020 19:17:07 EDT by Sai Rojo
--- NOTE | 2020-06-29 22:02 | ED PDOC ---
Post-Departure Follow-Up PT SECOND EKG IN NSR W/ NO ACUTE ISCHEMIC ST-T- CHANGES, 2ND SET OF CE'S (-) , A ND CTA CHEST (-) FOR ANY EVIDENCE OF PULMONARY EMBOLUS . Pt denies any conitnuation of symptomatology and is chest pain free at this time, and verbalizes understanding of prudent return directions and the imortance of follow up with her outpatient cardiologiust ( whom has been notified) . DARYN LAGUNA MD Jun 29, 2020 22:02
[2020-06-29 22:27] VITALS: BP 165/72
--- NOTE | 2020-06-30 06:28 | ECGEPIP ---
[facility] - ED Test Date: 2020-06-29 Pat Name: OJ PRINCE Department: Room: - Gender: Female Telehealth Nurse Educator: GARRY : 1945 Requested By: Sai Rojo Order Number: [id number] Reading MD: Sai Rojo Measurements Intervals [place] Rate: 55 P: 42 RI: 190 QRS: -8 QRSD: 90 T: 43 QT: 438 QTc: 419 Interpretive Statements Sinus bradycardia Inferior infarct , age undetermined Nonspecific ST T wave changes cw 06/29/[address] T wave changes Electronically Signed on 06-30-2020 6:28:21 EDT by Sai Rojo
--- NOTE | 2020-06-30 06:33 | ED PDOC ---
Post-Departure Follow-Up dr davis faxed formal report of cta chest for fu Sai Guardado MD Jun 30, 2020 06:33
== END 2020-06-29 22:30 | disposition home or self-care (01) ==
LOC: M ED 14:51
DX: R07.9 Chest pain, unspecified (principal); R91.8 Other nonspecific abnormal finding of lung field; N28.1 Cyst of kidney, acquired; R00.1 Bradycardia, unspecified; I48.91 Unspecified atrial fibrillation; I25.10 Atherosclerotic heart disease of native coronary artery without angina pectoris; I25.2 Old myocardial infarction; I11.0 Hypertensive heart disease with heart failure; I50.9 Heart failure, unspecified; E78.5 Hyperlipidemia, unspecified; J44.9 Chronic obstructive pulmonary disease, unspecified; M54.9 Dorsalgia, unspecified; F17.200 Nicotine dependence, unspecified, uncomplicated; Z95.5 Presence of coronary angioplasty implant and graft; Z79.01 Long term (current) use of anticoagulants; Z79.82 Long term (current) use of aspirin; Z79.899 Other long term (current) drug therapy; Z88.2 Allergy status to sulfonamides; Z88.0 Allergy status to penicillin; Z88.6 Allergy status to analgesic agent; Z88.8 Allergy status to other drugs, medicaments and biological substances
CPT/HCPCS: 71045; 71275; 80047; 80048; 84484; 85025; 85610; 85730; 93005; 93041; 94760; 96360; 99285; Q9967

== ENCOUNTER → 2020-07-03 | Outpatient (REF) | payer MEDICARE, MEDICAID ==
[2020-07-03 14:47] LABS: APPEARANCE, URINE CLEAR (CLEAR); BACTERIA, URINE AUTO NEGATIVE (NEGATIVE); BILIRUBIN, URINE AUTO NEGATIVE (NEGATIVE); BLOOD, URINE BLOOD NEGATIVE (NEGATIVE); COLOR, URINE STRAW (YELLOW); GLUCOSE, URINE (UA) AUTO NEGATIVE (NEGATIVE); KETONE, URINE AUTO NEGATIVE (NEGATIVE); LEUKOCYTE ESTERASE, URINE AUTO TRACE (NEGATIVE); NITRITE, URINE AUTO NEGATIVE (NEGATIVE); PROTEIN, URINE AUTO NEGATIVE (NEGATIVE); RBC, URINE AUTO 0 /HPF (0-3); SPECIFIC GRAVITY URINE AUTO 1.008 (1.002-1.035); SQUAMOUS EPITHELIAL CELL UR AU 0 /HPF (0-6); UROBILINOGEN, URINE AUTO 0.2 mg/dL (0.0-2.0); WBC, URINE AUTO 0 /HPF (0-3)
== END ==
LOC: M SMT 13:41
PROVIDERS: ATTEND Nurse Practitioner Women's Health
DX: N39.0 Urinary tract infection, site not specified (principal)
CPT/HCPCS: 51798; 81001; 87086; G0463

== ENCOUNTER → 2020-07-10 | Outpatient (CLI) | payer MEDICARE, MEDICAID ==
--- NOTE | 2020-07-10 09:56 | REPMRS ---
Patient History The patient states she has not had a clinical breast exam in over a year. Patient is postmenopausal. Family history of breast cancer at age 46 in sister, breast cancer at age 50 or over in maternal aunt, ovarian cancer at age 50 or over in maternal grandmother, unknown cancer in brother. No Hormone Replacement Therapy 3D TOMOSYNTHESIS WAS PERFORMED. The [facility] lifetime risk for breast cancer is 4.3%. Volpara breast density b. Digital Woman Screen Mammo: July 10, 2020 - Exam #: [id number] Bilateral CC and MLO view(s) were taken. Technologist: Vivien Ch, Technologist Prior study comparison: March 17, 2018, bilateral digital woman screen mammo performed at [facility]. April 08, 2013, digital woman screen mammo performed at [facility]. FINDINGS: There are scattered fibroglandular densities. There has been no change in the appearance of the mammogram from the prior studies. There is a mild amount of residual fibroglandular tissue which is fairly symmetric. There is no interval development of dominant mass, architectural distortion, or clustered microcalcification suggestive of malignancy. Assessment: BI-RADS/ACR category 1 mammogram. Negative Mammogram. Recommendation Routine screening mammogram in 1 year (for women over age 40). This mammogram was interpreted with the aid of an FDA-approved computer-aided dectection system. Electronically Signed By: Jesu Gupta MD 07/10/20 0955
== END ==
LOC: M WHC 09:06
PROVIDERS: ATTEND Internal Medicine
DX: Z12.31 Encounter for screening mammogram for malignant neoplasm of breast (principal); Z80.3 Family history of malignant neoplasm of breast

== ENCOUNTER → 2020-07-12 | Outpatient (CLI) | payer MEDICARE, MEDICAID ==
--- NOTE | 2020-07-13 07:39 | REP ---
INDICATION: URINARY TRACT INF, FLANK PAIN COMPARISON: None TECHNIQUE: Real time brown scale ultrasound examination using curved array transducer. FINDINGS: Right kidney measures 10.9 x 5.0 x 4.3 cm with increased central sinus fat, but without hydronephrosis, nephrolithiasis, or renal mass lesion. Few scattered cysts are identified measuring up to 3.6 x 2.6 x 3.6 cm at the cortical midpole level with thin septation. Small a mid and upper pole cysts are also identified measuring up to 2.5 cm and 1.9 cm diameter along with few scattered smaller cysts. Left kidney measures 9.2 x 4.1 x 3.7 cm with increased central sinus fat, but without hydronephrosis, nephrolithiasis, or renal mass lesion. Cortical scarring and scattered cysts are identified measuring up to 1.5 cm diameter. IMPRESSION: 1. Evidence for chronic medical renal disease along with mild atrophy and scarring to the left kidney. 2. Bilateral simple and complex renal cysts. Consider pre and postcontrast CT of the abdomen for more definitive evaluation if necessary. <Electronically signed by Tommy Pimentel > 07/13/20 0735
--- NOTE | 2020-07-13 07:40 | REP ---
INDICATION: URINARY TRACT INF, FLANK PAIN COMPARISON: None TECHNIQUE: Real time B-mode ultrasound examination using curved array transducer. FINDINGS: Bladder is normal in appearance without wall thickening or mass lesion. Prevoid bladder measures 14.5 x 12.3 x 9.2 cm (1071 cc). Postvoid bladder measures 7.2 x 11.4 x 7.2 cm (386 cc). Postvoid residual: 36% IMPRESSION: 1. Abnormal elevated postvoid residual volume. <Electronically signed by oTmmy Pimentel > 07/13/20 0752
== END ==
LOC: M RAD 11:56
PROVIDERS: ATTEND Nurse Practitioner Women's Health
DX: N39.0 Urinary tract infection, site not specified (principal); R10.30 Lower abdominal pain, unspecified; N28.1 Cyst of kidney, acquired; N26.1 Atrophy of kidney (terminal); R39.198 Other difficulties with micturition

== ENCOUNTER 2020-10-06 11:45 | Emergency (ER) | payer MEDICARE, MEDICAID ==
[~2020-10-06] VITALS: Ht 157.5 cm; Wt 66.8 kg
[~2020-10-06 11:45] MED LIST changes: +LOSA100T45 PO; -LOSA100T50 PO
[2020-10-06 16:46] VITALS: BP 165/85
== END 2020-10-06 17:06 | disposition home or self-care (01) ==
LOC: EDBD 11:45 → M ED 11:45
DX: S80.11XA Contusion of right lower leg, initial encounter (principal); S92.002A Unspecified fracture of left calcaneus, initial encounter for closed fracture; M47.893 Other spondylosis, cervicothoracic region; W08.XXXA Fall from other furniture, initial encounter; Y92.009 Unspecified place in unspecified non-institutional (private) residence as the place of occurrence of the external cause; Y93.9 Activity, unspecified; Y99.9 Unspecified external cause status; I50.9 Heart failure, unspecified; I25.2 Old myocardial infarction; I10 Essential (primary) hypertension; E78.5 Hyperlipidemia, unspecified; J44.9 Chronic obstructive pulmonary disease, unspecified; N18.30 Chronic kidney disease, stage 3 unspecified; E03.9 Hypothyroidism, unspecified; Z87.442 Personal history of urinary calculi; G47.33 Obstructive sleep apnea (adult) (pediatric); K21.9 Gastro-esophageal reflux disease without esophagitis; Z95.5 Presence of coronary angioplasty implant and graft; M48.00 Spinal stenosis, site unspecified; Z96.643 Presence of artificial hip joint, bilateral; Z85.828 Personal history of other malignant neoplasm of skin; Z79.82 Long term (current) use of aspirin; Z79.899 Other long term (current) drug therapy; Z88.2 Allergy status to sulfonamides; Z88.0 Allergy status to penicillin; Z88.6 Allergy status to analgesic agent; Z88.1 Allergy status to other antibiotic agents; Z88.8 Allergy status to other drugs, medicaments and biological substances

== ENCOUNTER → 2020-10-10 | Outpatient (CLI) | payer MEDICARE, MEDICAID ==
[~2020-10-10] MED LIST changes: -LOSA100T45 PO; +LOSA100T50 PO
--- NOTE | 2020-10-10 11:01 | REP ---
INDICATION: UNSP FRACTURE OF LEFT CALCANEUS, INIT FOR CLOS FX. COMPARISON: None. TECHNIQUE: AP, lateral, bilateral oblique views of the left foot. FINDINGS: Evaluation is limited by overlying cast material. No obvious displaced fracture is appreciated. IMPRESSION: Limited examination due to cast material. No obvious displaced fracture identified. <Electronically signed by Tommy Pimentel > 10/10/20 1058
--- NOTE | 2020-10-10 11:02 | REP ---
INDICATION: UNSP FRACTURE OF LEFT CALCANEUS, INIT FOR CLOS FX. COMPARISON: None. TECHNIQUE: Three views of the calcaneus. FINDINGS: Evaluation is limited by overlying cast material. No obvious displaced fracture identified. IMPRESSION: Limited examination. No obvious displaced fracture. <Electronically signed by Tommy Pimentel > 10/10/20 1053
== END ==
LOC: M SOG 10:13
PROVIDERS: ATTEND Orthopaedic Surgery Adult Reconstructive Orthopaedic Surgery
DX: S92.002A Unspecified fracture of left calcaneus, initial encounter for closed fracture (principal); X58.XXXA Exposure to other specified factors, initial encounter; Y92.9 Unspecified place or not applicable; Y93.9 Activity, unspecified; Y99.9 Unspecified external cause status

== ENCOUNTER → 2020-10-24 | Outpatient (CLI) | payer MEDICARE, MEDICAID ==
--- NOTE | 2020-10-24 13:19 | REP ---
INDICATION: UNSP FRACTURE OF LEFT CALCANEUS, INIT FOR CLOS FX. COMPARISON: 10/10/2020 TECHNIQUE: Two views FINDINGS: There is no change from the prior exam. Overlying casting material is again seen to obscure the bony detail. The previously identified os calcis fracture seen on the foot examination of 10/06/2020 is poorly imaged. IMPRESSION: No change when compared to the latest prior. <Electronically signed by Colby Reveles > 10/24/20 [id number]
== END ==
LOC: M SOG 10:34
PROVIDERS: ATTEND Orthopaedic Surgery Adult Reconstructive Orthopaedic Surgery
DX: S92.002A Unspecified fracture of left calcaneus, initial encounter for closed fracture (principal); X58.XXXA Exposure to other specified factors, initial encounter; Y92.9 Unspecified place or not applicable; Y93.9 Activity, unspecified; Y99.9 Unspecified external cause status

== ENCOUNTER → 2020-11-14 | Outpatient (CLI) | payer MEDICARE, MEDICAID ==
--- NOTE | 2020-11-14 11:01 | REP ---
INDICATION: UNSP FX OF LEFT CALCANEUS. COMPARISON: None. TECHNIQUE: Two orthogonal views of the left calcaneus FINDINGS: Age-related osteopenia and degenerative changes are appreciated. A nondisplaced fracture through the calcaneus with subtle cortical break along the inferior margin again noted. IMPRESSION: Osteopenia and degenerative changes. Nondisplaced calcaneal fracture again suspected with limited callus formation. <Electronically signed by Tommy Pimentel > 11/14/20 [id number]
== END ==
LOC: M SOG 10:11
PROVIDERS: ATTEND Orthopaedic Surgery Adult Reconstructive Orthopaedic Surgery
DX: S92.002A Unspecified fracture of left calcaneus, initial encounter for closed fracture (principal); X58.XXXA Exposure to other specified factors, initial encounter; Y92.89 Other specified places as the place of occurrence of the external cause; Y93.9 Activity, unspecified; Y99.9 Unspecified external cause status

== ENCOUNTER → 2020-12-10 | Outpatient (CLI) | payer MEDICARE, MEDICAID ==
[2020-12-10 12:02] LABS: BASO % 0.4 % (0.0-1.0); EOS # 0.1 10^3/uL (0.0-0.5); EOS % 1.9 % (0.0-3.0); HEMATOCRIT 33.3 % (36.0-47.0); HEMOGLOBIN 10.2 g/dl (12.0-15.5); LYMPH # 1.4 10^3/uL (1.5-5.0); LYMPH % 19.9 % (24.0-44.0); MEAN CORPUSCULAR HGB CONC 30.6 g/dl (32.0-36.5); MEAN CORPUSCULAR VOLUME 97.9 fl (80.0-96.0); MONO # 0.4 10^3/uL (0.0-0.8); NEUTROPHILS % 71.4 % (36.0-66.0); PLATELET COUNT, AUTOMATED 225 10^3/uL (150-450)
[2020-12-10 16:25] LABS: ALBUMIN 3.4 GM/DL (3.2-5.2); BILIRUBIN,TOTAL 0.3 MG/DL (0.2-1.0); CALCIUM LEVEL 8.9 MG/DL (8.8-10.2); CHOLESTEROL RISK RATIO 2.062 (<5); CREATININE FOR GFR 1.4 MG/DL (0.55-1.30); GLOMERULAR FILTRATION RATE 38.8 (>39); MAGNESIUM LEVEL 2.3 MG/DL (1.8-2.4); POTASSIUM SERUM 4.1 MEQ/L (3.5-5.1); THYROID STIMULATING HORMONE 2.52 uIU/ML (0.358-3.740); TOTAL PROTEIN 6.7 GM/DL (6.4-8.2)
== END ==
LOC: M WUC 09:10
PROVIDERS: ATTEND Internal Medicine
DX: I12.9 Hypertensive chronic kidney disease with stage 1 through stage 4 chronic kidney disease, or unspecified chronic kidney disease (principal); N18.30 Chronic kidney disease, stage 3 unspecified; E78.00 Pure hypercholesterolemia, unspecified; D63.1 Anemia in chronic kidney disease; Z11.59 Encounter for screening for other viral diseases; E03.9 Hypothyroidism, unspecified
CPT/HCPCS: 36415; 80053; 80061; 83735; 83970; 84443; 85025; G0472

== ENCOUNTER → 2020-12-28 | Outpatient (CLI) | payer MEDICARE, MEDICAID ==
--- NOTE | 2020-12-28 09:56 | REP ---
INDICATION: LT CALC FX. COMPARISON: 11/14/2020 latest prior TECHNIQUE: Two views FINDINGS: Callus formation is seen adjacent to the previously described os calcis fracture consistent with healing. There is no acute fracture. IMPRESSION: Healing fracture <Electronically signed by Colby Reveles > 12/28/20 0982
== END ==
LOC: M SOG 09:36
PROVIDERS: ATTEND Orthopaedic Surgery Adult Reconstructive Orthopaedic Surgery
DX: S92.002D Unspecified fracture of left calcaneus, subsequent encounter for fracture with routine healing (principal); X58.XXXD Exposure to other specified factors, subsequent encounter; Y92.9 Unspecified place or not applicable; Y93.9 Activity, unspecified; Y99.9 Unspecified external cause status

== ENCOUNTER → 2021-03-11 | Outpatient (CLI) | payer MEDICARE, MEDICAID ==
--- NOTE | 2021-03-11 15:14 | REP ---
INDICATION: FLANK PAIN W/ UTI ? STONES COMPARISON: 09/15/2019, 04/16/2018 TECHNIQUE: Axial noncontrast images from the lung bases to the pubic symphysis with coronal and sagittal reformations. This CT examination was performed using the following dose reduction techniques: Automated exposure control, adjustment of mA and/or kv according to the patient's size, and use of iterative reconstruction technique. FINDINGS: The right kidney includes multiple cysts measuring up to approximately 3.7 cm along with mild extrarenal pelvis and 4 mm nonobstructing intrarenal calculus without perinephric stranding or obvious acute hydroureteronephrosis. A small 2 mm calcification in the right hemipelvis likely represents phlebolith and appears to be relatively stable compared to multiple prior examinations, and less likely represents distal right ureteral stone. There is mild to moderate atherosclerotic change at the origin of the right main renal artery. The left kidney demonstrates mild atrophy along with few cysts measuring up to approximately 1.7 cm as well as few nonobstructing intrarenal calculi measuring up to 4 mm and renal vascular calcifications. There is extensive atherosclerotic change at the origin of the left main renal artery. Liver, spleen, pancreas, and bilateral adrenal glands are normal for noncontrast evaluation. Evidence for prior cholecystectomy noted. The enteric system is without obstruction or acute inflammatory process. Scattered colonic and sigmoid diverticula noted without acute diverticulitis. Pelvis demonstrates distended bladder and further evaluation is limited due to metallic streak artifact from bilateral hip replacements despite using metallic artifact reduction technique. Extensive atherosclerotic changes to the aorta and branch vessels noted without aneurysm. No ascites. No free air. No obvious adenopathy. Skeletal structures demonstrate degenerative changes. IMPRESSION: 1. Kidneys demonstrate cysts, nonobstructing nephroliths, and renovascular changes as described above. 2. Nonacute findings as noted above. 3. No ascites. No focal inflammatory stranding. No adenopathy. No free air. <Electronically signed by Tommy Pimentel > 03/11/21 [id number]
== END ==
LOC: M PLAIMG 13:03
PROVIDERS: ATTEND Nurse Practitioner Women's Health
DX: R10.9 Unspecified abdominal pain (principal); Z87.440 Personal history of urinary (tract) infections; N28.1 Cyst of kidney, acquired; N20.0 Calculus of kidney; I70.1 Atherosclerosis of renal artery; K57.30 Diverticulosis of large intestine without perforation or abscess without bleeding; Z96.643 Presence of artificial hip joint, bilateral; I70.0 Atherosclerosis of aorta

== ENCOUNTER 2021-04-29 10:26 | Emergency (ER) | payer MEDICARE, MEDICAID ==
[~2021-04-29] VITALS: Ht 157.5 cm; Wt 66.5 kg
[~2021-04-29 10:26] MED LIST changes: +LOSA100T45 PO; -LOSA100T50 PO
[2021-04-29] MEDS ORDERED: HYDR-3713 PO (13:31)
[2021-04-29] MEDS ORDERED: BACL10TA2 PO (13:31)
[2021-04-29 13:58] VITALS: BP 175/85
== END 2021-04-29 13:59 | disposition home or self-care (01) ==
LOC: M ED 10:26
DX: M54.16 Radiculopathy, lumbar region (principal); M62.830 Muscle spasm of back; M62.838 Other muscle spasm; I48.91 Unspecified atrial fibrillation; I50.9 Heart failure, unspecified; I25.2 Old myocardial infarction; I10 Essential (primary) hypertension; Z86.73 Personal history of transient ischemic attack (TIA), and cerebral infarction without residual deficits; J44.9 Chronic obstructive pulmonary disease, unspecified; K21.9 Gastro-esophageal reflux disease without esophagitis; N18.30 Chronic kidney disease, stage 3 unspecified; E03.9 Hypothyroidism, unspecified; M48.00 Spinal stenosis, site unspecified; M81.0 Age-related osteoporosis without current pathological fracture; M85.88 Other specified disorders of bone density and structure, other site; M51.36 Other intervertebral disc degeneration, lumbar region; Z79.899 Other long term (current) drug therapy; Z88.2 Allergy status to sulfonamides; Z88.0 Allergy status to penicillin; Z88.6 Allergy status to analgesic agent; Z88.8 Allergy status to other drugs, medicaments and biological substances

== ENCOUNTER → 2021-06-12 | Outpatient (CLI) | payer MEDICARE, MEDICAID ==
[~2021-06-12] MED LIST changes: +BACL10TA2 PO; +HYDR-3713 PO
[2021-06-12 14:53] LABS: BASO % 0.6 % (0.0-1.0); EOS # 0.2 10^3/uL (0.0-0.5); EOS % 3.2 % (0.0-3.0); HEMATOCRIT 32.3 % (36.0-47.0); HEMOGLOBIN 10.3 g/dl (12.0-15.5); LYMPH # 1.6 10^3/uL (1.5-5.0); LYMPH % 31.9 % (24.0-44.0); MEAN CORPUSCULAR HEMOGLOBIN 31.1 pg (27.0-33.0); MEAN CORPUSCULAR HGB CONC 31.9 g/dl (32.0-36.5); MEAN CORPUSCULAR VOLUME 97.6 fl (80.0-96.0); MONO # 0.5 10^3/uL (0.0-0.8); MONO % 9.8 % (2.0-8.0); NEUTROPHILS # 2.7 10^3/uL (1.5-8.5); NEUTROPHILS % 54.1 % (36.0-66.0); PLATELET COUNT, AUTOMATED 199 10^3/uL (150-450); RED BLOOD COUNT 3.31 10^6/uL (4.00-5.40)
[2021-06-12 15:21] LABS: ALBUMIN 3.7 GM/DL (3.2-5.2); BILIRUBIN,TOTAL 0.2 MG/DL (0.2-1.0); CALCIUM LEVEL 9.2 MG/DL (8.8-10.2); CREATININE FOR GFR 2.01 MG/DL (0.55-1.30); GLOMERULAR FILTRATION RATE 25.6 (>39); MAGNESIUM LEVEL 2.8 MG/DL (1.8-2.4); POTASSIUM SERUM 4.4 MEQ/L (3.5-5.1); TOTAL PROTEIN 6.7 GM/DL (6.4-8.2)
[2021-06-12 15:32] LABS: PTH INTACT 84.5 PG/ML (18.5-88.0)
== END ==
LOC: M WUC 08:47
PROVIDERS: ATTEND Internal Medicine
DX: I12.9 Hypertensive chronic kidney disease with stage 1 through stage 4 chronic kidney disease, or unspecified chronic kidney disease (principal); D63.1 Anemia in chronic kidney disease; N18.31 Chronic kidney disease, stage 3a

== ENCOUNTER 2021-06-26 07:50 | Emergency (ER) | payer MEDICARE, MEDICAID ==
[~2021-06-26] VITALS: Ht 157.5 cm; Wt 67.3 kg
[2021-06-26] MEDS ORDERED: CALC1CAP31 (08:04)
[2021-06-26] MEDS ORDERED: ACET1TAB16 (08:04)
[2021-06-26] MEDS ORDERED: LORazepam 2 MG/ML VIAL IV STA ×2 (08:38→11:34)
[2021-06-26 08:47] LABS: BASO % 0.7 % (0.0-1.0); EOS # 0.1 10^3/uL (0.0-0.5); EOS % 3.1 % (0.0-3.0); HEMATOCRIT 32.9 % (36.0-47.0); HEMOGLOBIN 10.6 g/dl (12.0-15.5); LYMPH # 1.4 10^3/uL (1.5-5.0); LYMPH % 32.2 % (24.0-44.0); MEAN CORPUSCULAR HEMOGLOBIN 31.1 pg (27.0-33.0); MEAN CORPUSCULAR HGB CONC 32.2 g/dl (32.0-36.5); MEAN CORPUSCULAR VOLUME 96.5 fl (80.0-96.0); MONO # 0.4 10^3/uL (0.0-0.8); MONO % 9.2 % (2.0-8.0); NEUTROPHILS # 2.3 10^3/uL (1.5-8.5); NEUTROPHILS % 54.3 % (36.0-66.0); PLATELET COUNT, AUTOMATED 184 10^3/uL (150-450); RED BLOOD COUNT 3.41 10^6/uL (4.00-5.40); WHITE BLOOD COUNT 4.3 10^3/uL (4.0-10.0)
[2021-06-26] MEDS ORDERED: NORCO, ANEXSIA 5/325MG TABLET (HYDROcodone/ACETAMINOPHEN) PO ONE (09:15)
[2021-06-26 09:22] LABS: CK-MB VALUE MASS < 1.0 NG/ML (<3.6); CPK CREATINE PHOSPHOKINASE 130 U/L (26-192); MB/CK RELATIVE INDEX 0.77 (< OR =4)
[2021-06-26 09:50] LABS: INR 0.93; PROTHROMBIN TIME 12.9 SECONDS (12.7-14.5)
[2021-06-26 10:01] LABS: ALBUMIN 3.6 GM/DL (3.2-5.2); ALT/SGPT 24 U/L (12-78); BILIRUBIN,DIRECT < 0.1 MG/DL (0.0-0.2); BILIRUBIN,TOTAL 0.4 MG/DL (0.2-1.0); BLOOD UREA NITROGEN 29 MG/DL (7-18); CALCIUM LEVEL 9.4 MG/DL (8.8-10.2); CARBON DIOXIDE LEVEL 27 MEQ/L (21-32); CHLORIDE LEVEL 110 MEQ/L (98-107); CREATININE FOR GFR 1.82 MG/DL (0.55-1.30); FREE THYROXINE INDEX 4.2 % (1.3-4.8); GLOMERULAR FILTRATION RATE 28.7 (>39); GLUCOSE, FASTING 116 MG/DL (70-100); LIPASE 363 U/L (73-393); NT-PRO BNP 622 PG/ML (<450); POTASSIUM SERUM 5.6 MEQ/L (3.5-5.1); SODIUM LEVEL 142 MEQ/L (136-145); T UPTAKE 33 % (30-39); THYROXINE (T4) 12.6 UG/DL (4.5-12.0); TOTAL PROTEIN 7.3 GM/DL (6.4-8.2)
[2021-06-26] MEDS: MORPHINE 2 MG/ML 1ML VIAL IV PRN ×2 (10:39→11:28)
[2021-06-26 11:34] LABS: CK-MB VALUE MASS < 1.0 NG/ML (<3.6); CPK CREATINE PHOSPHOKINASE 142 U/L (26-192)
[2021-06-26 12:16] LABS: CK-MB VALUE MASS < 1.0 NG/ML (<3.6); CPK CREATINE PHOSPHOKINASE 95 U/L (26-192); MB/CK RELATIVE INDEX 1.05 (< OR =4)
[2021-06-26] MEDS ORDERED: amLODIPine 5 MG TAB PO ONE (13:00)
[2021-06-26] MEDS ORDERED: NORV5TAB PO (13:02)
[2021-06-26 13:21] VITALS: BP 208/88
[2021-06-26] MEDS ORDERED: HYDR-3713 PO (13:28)
[2021-06-26 13:35] VITALS: BP 191/89
== END 2021-06-26 13:35 | disposition home or self-care (01) ==
LOC: M ED 07:50
DX: I10 Essential (primary) hypertension (principal); M48.00 Spinal stenosis, site unspecified; R00.1 Bradycardia, unspecified; Z96.643 Presence of artificial hip joint, bilateral; I25.10 Atherosclerotic heart disease of native coronary artery without angina pectoris; Z95.5 Presence of coronary angioplasty implant and graft; Z82.49 Family history of ischemic heart disease and other diseases of the circulatory system; Z79.899 Other long term (current) drug therapy; Z88.2 Allergy status to sulfonamides; Z88.0 Allergy status to penicillin; Z88.6 Allergy status to analgesic agent; Z88.8 Allergy status to other drugs, medicaments and biological substances
CPT/HCPCS: 36415; 71045; 73502; 73552; 80048; 80076; 82550; 82553; 83690; 83880; 84436; 84443; 84479; 84484; 85025; 85610; 93005; 93041; 93971; 94760; 96374; 96375; 96376; 99285; J2060; J2270

== ENCOUNTER → 2021-07-15 | Outpatient (CLI) | payer MEDICARE, MEDICAID ==
[~2021-07-15] MED LIST changes: -ACET1TAB16; -ACET1TAB16 PO; +ACET300T48; +ACET300T48 PO; +CALC1CAP31; +NORV5TAB PO
== END ==
LOC: M RAD 11:02
PROVIDERS: ATTEND Internal Medicine
DX: R91.8 Other nonspecific abnormal finding of lung field (principal)

== ENCOUNTER → 2021-07-24 | Outpatient (REF) | payer MEDICARE, MEDICAID ==
[2021-07-24 13:35] LABS: APPEARANCE, URINE CLEAR (CLEAR); BACTERIA, URINE AUTO NEGATIVE (NEGATIVE); BILIRUBIN, URINE AUTO NEGATIVE (NEGATIVE); BLOOD, URINE BLOOD NEGATIVE (NEGATIVE); COLOR, URINE STRAW (YELLOW); GLUCOSE, URINE (UA) AUTO NEGATIVE (NEGATIVE); KETONE, URINE AUTO NEGATIVE (NEGATIVE); LEUKOCYTE ESTERASE, URINE AUTO NEGATIVE (NEGATIVE); NITRITE, URINE AUTO NEGATIVE (NEGATIVE); PROTEIN, URINE AUTO NEGATIVE (NEGATIVE); RBC, URINE AUTO 1 /HPF (0-3); SQUAMOUS EPITHELIAL CELL UR AU 0 /HPF (0-6); UROBILINOGEN, URINE AUTO 0.2 mg/dL (0.0-2.0); WBC, URINE AUTO 0 /HPF (0-3)
== END ==
LOC: M SMT 12:55
PROVIDERS: ATTEND Nurse Practitioner Women's Health
DX: Z87.440 Personal history of urinary (tract) infections (principal)

== ENCOUNTER → 2021-08-05 | Outpatient (CLI) | payer MEDICARE, MEDICAID | LOC: M PLARAD 13:20 | PROVIDERS: ATTEND Internal Medicine | DX: R93.89 Abnormal findings on diagnostic imaging of other specified body structures (principal); R91.1 Solitary pulmonary nodule | CPT/HCPCS: 78815; A9552 ==

== ENCOUNTER → 2021-08-29 | Outpatient (CLI) | payer MEDICARE, MEDICAID ==
[2021-08-29 16:17] LABS: PLATELET COUNT, AUTOMATED 201 10^3/uL (150-450)
[2021-08-29 16:25] LABS: INR 0.9; PROTHROMBIN TIME 12.6 SECONDS (12.7-14.5)
[2021-08-29 16:26] LABS: PARTIAL THROMBOPLASTIN TIME 29.4 SECONDS (25.9-37.0)
== END ==
LOC: M WUC 13:39
PROVIDERS: ATTEND Internal Medicine Pulmonary Disease
DX: Z01.812 Encounter for preprocedural laboratory examination (principal); R91.8 Other nonspecific abnormal finding of lung field; J43.1 Panlobular emphysema

== ENCOUNTER 2021-09-05 08:04 | Inpatient (IN) | payer MEDICARE, MEDICAID ==
[2021-09-05] VITALS (25 sets, daily range): BP systolic 168–234; BP diastolic 70–95
[~2021-09-05] VITALS: Ht 154.9 cm; Wt 68.7 kg
[~2021-09-05 08:04] MED LIST changes: -CALC1CAP31; +CALC1CAP31 PO
[2021-09-05] MEDS ORDERED: LIDOCAINE 1% MDV 20ML VIAL As Ordered ONE ×2 (08:31→12:36)
[2021-09-05] MEDS ORDERED: ASPI81TA27 PO (08:51)
[2021-09-05] MEDS ORDERED: CEPH500C PO (08:51)
[2021-09-05] MEDS ORDERED: ATOR40TA75 PO (08:51)
[2021-09-05] MEDS ORDERED: VITA100093 PO (08:51)
[2021-09-05] MEDS ORDERED: ALIR75PE3 SQ (08:51)
[2021-09-05] MEDS ORDERED: PLAV1TAB2 PO (08:51)
[2021-09-05] MEDS ORDERED: HOME MED LIST COMPLETE! XX SCH (08:55)
[2021-09-05] MEDS ORDERED: ACETAMINOPHEN 325 MG TAB As Ordered ONE (10:43)
[2021-09-05] MEDS ORDERED: ACETAMINOPHEN TAB 650MG DOSE (2X325MG) PO PRN (11:15)
[2021-09-05] MEDS ORDERED: MIDAZOLAM INJ 2MG/2ML VIAL (J2250 PER 1MG) As Ordered ONE (12:28)
[2021-09-05] MEDS ORDERED: MIDAZOLAM INJ 2MG/2ML VIAL (J2250 PER 1MG) IV STA ×2 (12:50→12:54)
[2021-09-05] MEDS ORDERED: BISACODYL 10 MG SUPP PR PRN (13:10)
[2021-09-05] MEDS ORDERED: LEVALBUTEROL 1.25 MG/0.5 ML CONCENTRATE NEB NEB PRN (13:10)
[2021-09-05] MEDS ORDERED: PERCOCET 5MG/325MG TAB As Ordered ONE (13:43)
[2021-09-05] MEDS: PERCOCET 5MG/325MG TAB PO PRN ×2 (13:45→18:13)
[2021-09-05 13:53] LABS: BASO % 0.8 % (0.0-1.0); EOS # 0.1 10^3/uL (0.0-0.5); EOS % 2.2 % (0.0-3.0); HEMATOCRIT 31.7 % (36.0-47.0); HEMOGLOBIN 10.2 g/dl (12.0-15.5); LYMPH # 1.4 10^3/uL (1.5-5.0); LYMPH % 27.5 % (24.0-44.0); MEAN CORPUSCULAR HEMOGLOBIN 30.9 pg (27.0-33.0); MEAN CORPUSCULAR HGB CONC 32.2 g/dl (32.0-36.5); MEAN CORPUSCULAR VOLUME 96.1 fl (80.0-96.0); MONO # 0.5 10^3/uL (0.0-0.8); NEUTROPHILS # 2.9 10^3/uL (1.5-8.5); NEUTROPHILS % 58.7 % (36.0-66.0); PLATELET COUNT, AUTOMATED 173 10^3/uL (150-450)
[2021-09-05] MEDS ORDERED: KCL 20MEQ IN D5/NS 1000ML 1,000 ML IV SCH (14:00)
[2021-09-05 14:16] LABS: CALCIUM LEVEL 9.2 MG/DL (8.8-10.2); CREATININE FOR GFR 1.82 MG/DL (0.55-1.30); GLOMERULAR FILTRATION RATE 28.7 (>39); POTASSIUM SERUM 4.4 MEQ/L (3.5-5.1)
[2021-09-05] MEDS ORDERED: NITROGLYCERIN 0.4 MG SUBL TABLET SL PRN (15:35)
[2021-09-05] MEDS ORDERED: hydrALAZINE 20MG/ML 1ML VIAL (J0360 PER 20MG) As Ordered ONE (15:45)
[2021-09-05] MEDS: hydrALAZINE 20MG/ML 1ML VIAL (J0360 PER 20MG) IV PRN ×2 (15:49→22:07)
[2021-09-05] MEDS: ATORVASTATIN 20 MG TAB PO SCH (16:26)
[2021-09-05] MEDS: LEVALBUTEROL 1.25 MG/0.5 ML CONCENTRATE NEB NEB SCH ×2 (16:46→20:46)
[2021-09-05] MEDS ORDERED: MORPHINE 4 MG/ML 1ML VIAL/SYRINGE IV ONE (17:30)
[2021-09-05] MEDS ORDERED: hydrALAZINE 20MG/ML 1ML VIAL (J0360 PER 20MG) IV STA (18:53)
[2021-09-05] MEDS: CARVedilol 12.5 MG TAB PO SCH (19:07)
[2021-09-05] MEDS: LOSARTAN 50MG TABLET PO SCH (19:07)
[2021-09-05] MEDS: ONDANSETRON 4MG/2ML VIAL IV PRN (19:37)
[2021-09-05] MEDS: ACETAMINOPHEN TAB 650MG DOSE (2X325MG) PO PRN (20:55)
[2021-09-05] MEDS: PANTOPRAZOLE 40MG TAB (PROTONIX) PO SCH (20:56)
[2021-09-05] MEDS: ASPIRIN 81MG ENTERIC TABLET PO SCH (20:56)
[2021-09-05] MEDS: HEPARIN SOD (PORCINE) 5000UNITS/ML 1ML VIAL/SYRINGE SC SCH (20:56)
[2021-09-05] MEDS: DOCUSATE SODIUM 100MG CAPSULE PO SCH (20:56)
[2021-09-05] MEDS ORDERED: OMEPRAZOLE 20MG CAP PO SCH (21:00)
[2021-09-06] VITALS: BP 172/72
[2021-09-06] MEDS: LEVALBUTEROL 1.25 MG/0.5 ML CONCENTRATE NEB NEB SCH ×5 (02:00→19:52)
[2021-09-06] MEDS: PERCOCET 5MG/325MG TAB PO PRN ×2 (03:25→20:01)
[2021-09-06] MEDS: hydrALAZINE 20MG/ML 1ML VIAL (J0360 PER 20MG) IV PRN (03:25)
[2021-09-06 04:00] VITALS: BP 177/76
[2021-09-06] MEDS: LEVOTHYROXINE 75MCG TABLET (0.075MG) PO SCH (05:50)
[2021-09-06 06:45] LABS: BASO % 0.3 % (0.0-1.0); EOS % 0.3 % (0.0-3.0); HEMATOCRIT 32.3 % (36.0-47.0); HEMOGLOBIN 10.3 g/dl (12.0-15.5); LYMPH # 1.5 10^3/uL (1.5-5.0); MEAN CORPUSCULAR HEMOGLOBIN 30.7 pg (27.0-33.0); MEAN CORPUSCULAR HGB CONC 31.9 g/dl (32.0-36.5); MEAN CORPUSCULAR VOLUME 96.1 fl (80.0-96.0); MONO # 0.5 10^3/uL (0.0-0.8); MONO % 6.8 % (2.0-8.0); NEUTROPHILS # 5.9 10^3/uL (1.5-8.5); NEUTROPHILS % 73.2 % (36.0-66.0); PLATELET COUNT, AUTOMATED 190 10^3/uL (150-450); RED BLOOD COUNT 3.36 10^6/uL (4.00-5.40)
[2021-09-06 07:10] LABS: CALCIUM LEVEL 8.6 MG/DL (8.8-10.2); GLOMERULAR FILTRATION RATE 25.7 (>39); POTASSIUM SERUM 4.5 MEQ/L (3.5-5.1)
[2021-09-06 07:56] VITALS: BP 160/70
[2021-09-06] MEDS: ATORVASTATIN 20 MG TAB PO SCH (08:51)
[2021-09-06] MEDS: CALCITRIOL 0.25 MCG CAP (S0169) PO SCH (08:51)
[2021-09-06] MEDS: DOCUSATE SODIUM 100MG CAPSULE PO SCH ×2 (08:51→22:00)
[2021-09-06] MEDS: ONDANSETRON 4MG/2ML VIAL IV PRN ×2 (08:52→20:00)
[2021-09-06] MEDS: CLOPIDOGREL 75 MG TAB PO SCH (08:57)
[2021-09-06] MEDS: CARVedilol 12.5 MG TAB PO SCH ×2 (08:58→21:58)
[2021-09-06] MEDS: FUROSEMIDE 40 MG TAB PO SCH (08:58)
[2021-09-06] MEDS: HEPARIN SOD (PORCINE) 5000UNITS/ML 1ML VIAL/SYRINGE SC SCH ×2 (08:59→21:59)
[2021-09-06] MEDS: VITAMIN D 1,000 INTERNATIONAL UNITS TABLET PO SCH (08:59)
[2021-09-06] MEDS: MOM 30ML SUSPENSION UDC PO SCH (09:00)
[2021-09-06] MEDS ORDERED: CEPHALEXIN 500 MG CAP PO SCH (09:00)
[2021-09-06] MEDS: ACETAMINOPHEN TAB 650MG DOSE (2X325MG) PO PRN (09:01)
[2021-09-06 11:54] VITALS: BP 161/70
[2021-09-06] MEDS ORDERED: ACETAMINOPHEN TAB 650MG DOSE (2X325MG) PO PRN (15:45)
[2021-09-06 16:47] VITALS: BP 158/70
[2021-09-06 19:45] VITALS: BP 160/69
[2021-09-06] MEDS: TAMSULOSIN 0.4 MG CAP PO SCH (21:59)
[2021-09-06] MEDS: LOSARTAN 50MG TABLET PO SCH (21:59)
[2021-09-06] MEDS: PANTOPRAZOLE 40MG TAB (PROTONIX) PO SCH (21:59)
[2021-09-06] MEDS: ASPIRIN 81MG ENTERIC TABLET PO SCH (22:00)
[2021-09-07 00:02] VITALS: BP 156/70
[2021-09-07 03:59] VITALS: BP 130/60
[2021-09-07] MEDS: PERCOCET 5MG/325MG TAB PO PRN ×2 (04:47→11:51)
[2021-09-07] MEDS: ONDANSETRON 4MG/2ML VIAL IV PRN (04:48)
[2021-09-07] MEDS: LEVOTHYROXINE 75MCG TABLET (0.075MG) PO SCH (06:05)
[2021-09-07 07:09] LABS: BASO % 0.2 % (0.0-1.0); EOS # 0.1 10^3/uL (0.0-0.5); EOS % 1.8 % (0.0-3.0); LYMPH # 1.8 10^3/uL (1.5-5.0); LYMPH % 30.1 % (24.0-44.0); MEAN CORPUSCULAR HEMOGLOBIN 31.1 pg (27.0-33.0); MEAN CORPUSCULAR HGB CONC 32.3 g/dl (32.0-36.5); MEAN CORPUSCULAR VOLUME 96.3 fl (80.0-96.0); MONO # 0.5 10^3/uL (0.0-0.8); MONO % 8.7 % (2.0-8.0); NEUTROPHILS # 3.6 10^3/uL (1.5-8.5); NEUTROPHILS % 58.7 % (36.0-66.0); PLATELET COUNT, AUTOMATED 163 10^3/uL (150-450); RED BLOOD COUNT 3.22 10^6/uL (4.00-5.40); WHITE BLOOD COUNT 6.1 10^3/uL (4.0-10.0)
[2021-09-07] MEDS: LEVALBUTEROL 1.25 MG/0.5 ML CONCENTRATE NEB NEB SCH ×2 (07:26→13:18)
[2021-09-07 07:30] LABS: CALCIUM LEVEL 9.1 MG/DL (8.8-10.2); CREATININE FOR GFR 2.14 MG/DL (0.55-1.30); GLOMERULAR FILTRATION RATE 23.8 (>39); POTASSIUM SERUM 3.9 MEQ/L (3.5-5.1)
[2021-09-07 08:17] VITALS: BP 130/64
[2021-09-07] MEDS: MOM 30ML SUSPENSION UDC PO SCH (09:00)
[2021-09-07 09:42] VITALS: BP 130/64
[2021-09-07] MEDS: CARVedilol 12.5 MG TAB PO SCH (09:42)
[2021-09-07] MEDS: VITAMIN D 1,000 INTERNATIONAL UNITS TABLET PO SCH (09:42)
[2021-09-07] MEDS: CLOPIDOGREL 75 MG TAB PO SCH (09:43)
[2021-09-07] MEDS: CALCITRIOL 0.25 MCG CAP (S0169) PO SCH (09:43)
[2021-09-07] MEDS: TAMSULOSIN 0.4 MG CAP PO SCH (09:43)
[2021-09-07] MEDS: ATORVASTATIN 20 MG TAB PO SCH (09:43)
[2021-09-07] MEDS: FUROSEMIDE 40 MG TAB PO SCH (09:43)
[2021-09-07] MEDS: DOCUSATE SODIUM 100MG CAPSULE PO SCH (09:44)
[2021-09-07] MEDS: HEPARIN SOD (PORCINE) 5000UNITS/ML 1ML VIAL/SYRINGE SC SCH (09:45)
[2021-09-07 12:40] VITALS: BP 132/62
[2021-09-07 17:07] VITALS: BP 130/68
[2021-09-07] MEDS ORDERED: AMLO1TAB25 PO (18:25)
[2021-09-07] MEDS ORDERED: COLA100C5 PO (18:25)
[2021-09-07] MEDS ORDERED: PERCOCET PO (18:25)
== END 2021-09-07 19:03 | disposition home or self-care (01) | DRG 200 ==
LOC: M IRPRO 08:04 → M PCU 13:14
PROVIDERS: ADMIT Internal Medicine; ATTEND Internal Medicine
PROC: 0W9930Z Drainage of Right Pleural Cavity with Drainage Device, Percutaneous Approach (ICD-10-PCS; 2021-09-05)
PROC: 0BBC3ZX Excision of Right Upper Lung Lobe, Percutaneous Approach, Diagnostic (ICD-10-PCS; principal; 2021-09-05 09:00)
DX: J95.811 Postprocedural pneumothorax (principal); C34.11 Malignant neoplasm of upper lobe, right bronchus or lung; I13.0 Hypertensive heart and chronic kidney disease with heart failure and stage 1 through stage 4 chronic kidney disease, or unspecified chronic kidney disease; I25.10 Atherosclerotic heart disease of native coronary artery without angina pectoris; I25.2 Old myocardial infarction; Z95.5 Presence of coronary angioplasty implant and graft; I73.9 Peripheral vascular disease, unspecified; N18.30 Chronic kidney disease, stage 3 unspecified; M85.88 Other specified disorders of bone density and structure, other site; E03.9 Hypothyroidism, unspecified; E78.5 Hyperlipidemia, unspecified; K21.9 Gastro-esophageal reflux disease without esophagitis; D63.1 Anemia in chronic kidney disease; Z90.49 Acquired absence of other specified parts of digestive tract; Z90.79 Acquired absence of other genital organ(s); Z85.828 Personal history of other malignant neoplasm of skin; Z79.82 Long term (current) use of aspirin; Z79.899 Other long term (current) drug therapy; Z79.01 Long term (current) use of anticoagulants; Z20.822 Contact with and (suspected) exposure to COVID-19; Z87.891 Personal history of nicotine dependence; R25.1 Tremor, unspecified; J44.9 Chronic obstructive pulmonary disease, unspecified; Z96.643 Presence of artificial hip joint, bilateral; I16.0 Hypertensive urgency; I50.9 Heart failure, unspecified; M48.061 Spinal stenosis, lumbar region without neurogenic claudication

== ENCOUNTER → 2021-09-10 | Outpatient (CLI) | payer MEDICARE, MEDICAID ==
[~2021-09-10] MED LIST changes: +ALIR75PE3 SQ; +AMLO1TAB25 PO; +ASPI81TA27 PO; +ATOR40TA75 PO; +CEPH500C PO; +PERCOCET PO; +VITA100093 PO
== END ==
LOC: M WUC 11:57
PROVIDERS: ATTEND Internal Medicine Pulmonary Disease
DX: J95.811 Postprocedural pneumothorax (principal); R91.8 Other nonspecific abnormal finding of lung field; J84.10 Pulmonary fibrosis, unspecified; Y83.8 Other surgical procedures as the cause of abnormal reaction of the patient, or of later complication, without mention of misadventure at the time of the procedure

== ENCOUNTER → 2021-09-19 | Outpatient (CLI) | payer MEDICARE, MEDICAID | LOC: M ONCR 13:56 | PROVIDERS: ATTEND General Practice | DX: C34.11 Malignant neoplasm of upper lobe, right bronchus or lung (principal); R91.8 Other nonspecific abnormal finding of lung field; J44.9 Chronic obstructive pulmonary disease, unspecified; Z80.3 Family history of malignant neoplasm of breast; Z80.1 Family history of malignant neoplasm of trachea, bronchus and lung; Z87.891 Personal history of nicotine dependence; Z79.82 Long term (current) use of aspirin; Z79.891 Long term (current) use of opiate analgesic; Z88.6 Allergy status to analgesic agent; Z88.1 Allergy status to other antibiotic agents; Z88.2 Allergy status to sulfonamides; Z88.8 Allergy status to other drugs, medicaments and biological substances ==

== ENCOUNTER 2021-10-18 13:52 | Outpatient (RCR) | payer MEDICARE, MEDICAID | END 2021-10-27 | LOC: M ONCR 13:52 | PROVIDERS: ATTEND General Practice | DX: C34.11 Malignant neoplasm of upper lobe, right bronchus or lung (principal) ==

== ENCOUNTER → 2021-11-15 | Outpatient (CLI) | payer MEDICARE, MEDICAID, OTHER | LOC: M LAB 10:07 | PROVIDERS: ATTEND Internal Medicine Pulmonary Disease | DX: C34.11 Malignant neoplasm of upper lobe, right bronchus or lung (principal) ==

== ENCOUNTER → 2022-01-07 | Outpatient (CLI) | payer MEDICARE, MEDICAID ==
[~2022-01-07] MED LIST changes: +ALEN70TA87 PO; -FOSA70TA PO
== END ==
LOC: M RAD 13:23
PROVIDERS: ATTEND General Practice
DX: C34.11 Malignant neoplasm of upper lobe, right bronchus or lung (principal); I25.10 Atherosclerotic heart disease of native coronary artery without angina pectoris; Z90.49 Acquired absence of other specified parts of digestive tract; N28.1 Cyst of kidney, acquired; K55.1 Chronic vascular disorders of intestine; I70.1 Atherosclerosis of renal artery

== ENCOUNTER → 2022-01-09 | Outpatient (CLI) | payer MEDICARE ==
[~2022-01-09] MED LIST changes: +PRED50TA PO
[2022-01-09 11:11] LABS: HEMATOCRIT 30.1 % (36.0-47.0); HEMOGLOBIN 9.6 g/dl (12.0-15.5); MEAN CORPUSCULAR HEMOGLOBIN 31.3 pg (27.0-33.0); MEAN CORPUSCULAR HGB CONC 31.9 g/dl (32.0-36.5); PLATELET COUNT, AUTOMATED 221 10^3/uL (150-450); RED BLOOD COUNT 3.07 10^6/uL (4.00-5.40); WHITE BLOOD COUNT 5.3 10^3/uL (4.0-10.0)
[2022-01-09 12:03] LABS: HEMOGLOBIN A1c 5.7 %
[2022-01-09 12:05] LABS: CREATININE, URINE 76.3 MG/DL; MALB URINE SIEMENS < 5.0 MG/L; MAU/CREAT RATIO 6.5 MCG/MG (0.0-30.0)
[2022-01-09 12:18] LABS: ALBUMIN 3.4 GM/DL (3.2-5.2); BILIRUBIN,TOTAL 0.4 MG/DL (0.2-1.0); C REACTIVE PROTEIN QUANTITATIV 1.34 MG/DL (0.00-0.30); CALCIUM LEVEL 9.1 MG/DL (8.8-10.2); CHOLESTEROL RISK RATIO 3.486 (<5); CREATININE FOR GFR 1.76 MG/DL (0.55-1.30); FREE T4 1.19 NG/DL (0.76-1.46); GLOMERULAR FILTRATION RATE 29.7 (>39); PERCENT SATURATION 27.8 % (13.2-45.0); POTASSIUM SERUM 4.4 MEQ/L (3.5-5.1); THYROID STIMULATING HORMONE 1.1 uIU/ML (0.358-3.740)
[2022-01-09 13:18] LABS: TOTAL 25(OH) VITAMIN D 39.7 NG/ML (30.0-100.0)
== END ==
LOC: M PLALAB 08:55
PROVIDERS: ATTEND Internal Medicine Hematology
DX: I12.9 Hypertensive chronic kidney disease with stage 1 through stage 4 chronic kidney disease, or unspecified chronic kidney disease (principal); N18.9 Chronic kidney disease, unspecified

== ENCOUNTER → 2022-01-09 | Outpatient (CLI) | payer MEDICARE ==
[~2022-01-09] MED LIST changes: +ISOVUE-370 76% 100ML VIAL As Ordered ONE
== END ==
LOC: M RAD 12:56
PROVIDERS: ATTEND Internal Medicine Hematology
DX: N28.1 Cyst of kidney, acquired (principal); R06.02 Shortness of breath; C34.90 Malignant neoplasm of unspecified part of unspecified bronchus or lung; R79.1 Abnormal coagulation profile

== ENCOUNTER → 2022-01-15 | Outpatient (CLI) | payer MEDICARE, MEDICAID ==
[~2022-01-15] MED LIST changes: -ISOVUE-370 76% 100ML VIAL As Ordered ONE
== END ==
LOC: M ONCR 13:46
PROVIDERS: ATTEND General Practice
DX: C34.11 Malignant neoplasm of upper lobe, right bronchus or lung (principal); R91.1 Solitary pulmonary nodule; R06.02 Shortness of breath; Z79.02 Long term (current) use of antithrombotics/antiplatelets; Z79.2 Long term (current) use of antibiotics; Z79.82 Long term (current) use of aspirin; Z79.890 Hormone replacement therapy; Z79.891 Long term (current) use of opiate analgesic; Z79.899 Other long term (current) drug therapy; Z87.891 Personal history of nicotine dependence; Z88.0 Allergy status to penicillin; Z88.1 Allergy status to other antibiotic agents; Z88.2 Allergy status to sulfonamides; Z88.8 Allergy status to other drugs, medicaments and biological substances; Z92.3 Personal history of irradiation

== ENCOUNTER 2022-01-23 12:29 | Emergency (ER) | payer MEDICARE, MEDICAID, OTHER ==
[~2022-01-23] VITALS: Ht 157.5 cm; Wt 67.4 kg
[~2022-01-23 12:29] MED LIST changes: +CLOP75TA99 PO; -PLAV1TAB2 PO
[2022-01-23] MEDS ORDERED: BOOSTRIX/ADACEL VACCINE (DIPHTH/PERTUSS/ACELL/TETANUS) 0.5ML SYR IM ONE (13:25)
[2022-01-23] MEDS ORDERED: DOXY-443 PO (14:15)
[2022-01-23 14:35] VITALS: BP 182/78
== END 2022-01-23 14:37 | disposition home or self-care (01) ==
LOC: M ED 12:29
DX: S90.811A Abrasion, right foot, initial encounter (principal); W55.03XA Scratched by cat, initial encounter; Y92.009 Unspecified place in unspecified non-institutional (private) residence as the place of occurrence of the external cause; I48.91 Unspecified atrial fibrillation; I13.0 Hypertensive heart and chronic kidney disease with heart failure and stage 1 through stage 4 chronic kidney disease, or unspecified chronic kidney disease; I50.9 Heart failure, unspecified; I25.2 Old myocardial infarction; I25.10 Atherosclerotic heart disease of native coronary artery without angina pectoris; Z86.73 Personal history of transient ischemic attack (TIA), and cerebral infarction without residual deficits; Z85.118 Personal history of other malignant neoplasm of bronchus and lung; Z90.710 Acquired absence of both cervix and uterus; Z90.49 Acquired absence of other specified parts of digestive tract; Z90.89 Acquired absence of other organs; Z23 Encounter for immunization; Z88.2 Allergy status to sulfonamides; Z88.1 Allergy status to other antibiotic agents; Z88.6 Allergy status to analgesic agent; Z88.8 Allergy status to other drugs, medicaments and biological substances; Z79.899 Other long term (current) drug therapy; Z79.890 Hormone replacement therapy; Z79.82 Long term (current) use of aspirin

== ENCOUNTER → 2022-02-28 | Outpatient (CLI) | payer MEDICARE, MEDICAID ==
[~2022-02-28] MED LIST changes: +DOXY-443 PO
== END ==
LOC: M RAD 13:43
PROVIDERS: ATTEND Internal Medicine Pulmonary Disease
DX: C34.11 Malignant neoplasm of upper lobe, right bronchus or lung (principal)

== ENCOUNTER → 2022-04-21 | Outpatient (CLI) | payer MEDICARE, MEDICAID ==
[~2022-04-21] MED LIST changes: +ALBU8.5H INH; +CYAN500T14 PO; +FURO40TA2 PO; +LOSA50TA28 PO; +vitamin D3 PO
[2022-04-21 12:42] LABS: PLATELET COUNT, AUTOMATED 193 10^3/uL (150-450)
[2022-04-21 13:05] LABS: INR 0.93; PROTHROMBIN TIME 12.7 SECONDS (12.5-14.5)
[2022-04-21 13:06] LABS: PARTIAL THROMBOPLASTIN TIME 27.9 SECONDS (24.8-34.2)
== END ==
LOC: M WUC 11:22
PROVIDERS: ATTEND Internal Medicine Pulmonary Disease
DX: C34.11 Malignant neoplasm of upper lobe, right bronchus or lung (principal)

== ENCOUNTER → 2022-04-24 | Outpatient (CLI) | payer MEDICARE, MEDICAID ==
[~2022-04-24] MED LIST changes: +ACETAMINOPHEN 325 MG TAB As Ordered ONE; +ACETAMINOPHEN TAB 650MG DOSE (2X325MG) PO PRN; +D 50CAP2 PO; +HOME MED LIST COMPLETE! XX SCH; +LIDOCAINE 1% MDV 20ML VIAL As Ordered ONE
[2022-04-24 11:15] VITALS: BP 158/57
== END ==
LOC: M IRPRO 07:47
PROVIDERS: ATTEND Internal Medicine Pulmonary Disease
DX: R91.8 Other nonspecific abnormal finding of lung field (principal)

== ENCOUNTER → 2022-05-06 | Outpatient (CLI) | payer MEDICARE, MEDICAID ==
[~2022-05-06] MED LIST changes: -ACETAMINOPHEN 325 MG TAB As Ordered ONE; -ACETAMINOPHEN TAB 650MG DOSE (2X325MG) PO PRN; -HOME MED LIST COMPLETE! XX SCH; -LIDOCAINE 1% MDV 20ML VIAL As Ordered ONE
== END ==
LOC: M ONCR 12:51
PROVIDERS: ATTEND General Practice
DX: C34.31 Malignant neoplasm of lower lobe, right bronchus or lung (principal); C34.11 Malignant neoplasm of upper lobe, right bronchus or lung; Z79.51 Long term (current) use of inhaled steroids; Z79.82 Long term (current) use of aspirin; Z79.899 Other long term (current) drug therapy; Z87.891 Personal history of nicotine dependence; Z88.1 Allergy status to other antibiotic agents; Z88.2 Allergy status to sulfonamides; Z88.6 Allergy status to analgesic agent; Z88.8 Allergy status to other drugs, medicaments and biological substances; Z92.3 Personal history of irradiation

== ENCOUNTER → 2022-05-19 | Outpatient (CLI) | payer MEDICARE, MEDICAID ==
[2022-05-19 14:22] LABS: ALBUMIN 3.6 G/DL (3.2-5.2); ALKALINE PHOSPHATASE 77 U/L (46-116); ALT/SGPT 14 U/L (7.0-40); AST/SGOT 13 U/L (<34); BILIRUBIN,TOTAL 0.3 MG/DL (0.3-1.2); BLOOD UREA NITROGEN 23 MG/DL (9-23); CALCIUM LEVEL 9.1 MG/DL (8.3-10.6); CARBON DIOXIDE LEVEL 28 MMOL/L (20-31); CHLORIDE LEVEL 107 MMOL/L (98-107); CHOLESTEROL LEVEL 169 MG/DL (<200); CHOLESTEROL RISK RATIO 4.42 (<5); CREATININE FOR GFR 1.62 MG/DL (0.55-1.30); GLOMERULAR FILTRATION RATE 32.7 (>39); GLUCOSE, FASTING 96 MG/DL (74-106); HDL CHOLESTEROL 38.2 MG/DL (>40); LDL CHOLESTEROL 81.2 MG/DL (<100); NON-HDL-C 131 MG/DL; POTASSIUM SERUM 4.5 MMOL/L (3.5-5.1); SODIUM LEVEL 142 MMOL/L (136-145); TOTAL PROTEIN 6.8 G/DL (5.7-8.2); TRIGLYCERIDES LEVEL 248 MG/DL (<150)
[2022-05-19 14:23] LABS: C REACTIVE PROTEIN QUANTITATIV < 0.40 MG/DL (<1.0)
[2022-05-19 14:24] LABS: VITAMIN B12 LEVEL 312 PG/ML (211-911)
[2022-05-19 14:25] LABS: FREE T4 1.11 NG/DL (0.89-1.76); THYROID STIMULATING HORMONE 3.734 uIU/ML (0.55-4.78)
[2022-05-19 14:26] LABS: HEMATOCRIT 32.4 % (36.0-47.0); HEMOGLOBIN 10.1 g/dl (12.0-15.5); MEAN CORPUSCULAR HEMOGLOBIN 29.9 pg (27.0-33.0); MEAN CORPUSCULAR HGB CONC 31.2 g/dl (32.0-36.5); MEAN CORPUSCULAR VOLUME 95.9 fl (80.0-96.0); PLATELET COUNT, AUTOMATED 195 10^3/uL (150-450); RED BLOOD COUNT 3.38 10^6/uL (4.00-5.40); TOTAL 25(OH) VITAMIN D 31.5 NG/ML (20.0-100.0); WHITE BLOOD COUNT 4.6 10^3/uL (4.0-10.0)
[2022-05-19 14:36] LABS: HEMOGLOBIN A1c 5.7 % (4.0-6.0)
[2022-05-19 14:41] LABS: CREATININE, URINE 61.6 MG/DL
[2022-05-19 14:42] LABS: MAU/CREAT RATIO 6.4 MCG/MG (0.0-30.0)
== END ==
LOC: M PLALAB 10:49
PROVIDERS: ATTEND Internal Medicine Hematology
DX: I12.9 Hypertensive chronic kidney disease with stage 1 through stage 4 chronic kidney disease, or unspecified chronic kidney disease (principal)

== ENCOUNTER 2022-05-20 13:45 | Outpatient (RCR) | payer MEDICARE, MEDICAID | END 2022-05-27 | LOC: M ONCR 13:45 | PROVIDERS: ATTEND General Practice | DX: C34.11 Malignant neoplasm of upper lobe, right bronchus or lung (principal) ==

== ENCOUNTER → 2022-06-02 | Outpatient (CLI) | payer MEDICARE, MEDICAID | LOC: M PLARAD 07:54 | PROVIDERS: ATTEND Internal Medicine Pulmonary Disease | DX: C34.11 Malignant neoplasm of upper lobe, right bronchus or lung (principal) | CPT/HCPCS: 78815; A9552 ==

== ENCOUNTER 2022-06-13 11:44 | Outpatient (RCR) | payer MEDICARE, MEDICAID ==
[~2022-06-13 11:44] MED LIST changes: +LIDO1PAD TOP
[2022-06-13] MEDS ORDERED: VALA1TAB5 PO (12:13)
[2022-06-13] MEDS ORDERED: AMIT25TA17 PO (12:13)
== END 2022-06-27 ==
LOC: M ONCR 11:44
PROVIDERS: ATTEND General Practice
DX: C34.11 Malignant neoplasm of upper lobe, right bronchus or lung (principal)

== ENCOUNTER 2022-07-23 11:56 | Observation (INO) | payer MEDICARE, MEDICAID ==
[~2022-07-23] VITALS: Ht 157.5 cm; Wt 68.4 kg
[~2022-07-23 11:56] MED LIST changes: +AMIT25TA17 PO; -LOSA100T45 PO; +LOSA100T46 PO; +VALA1TAB5 PO
[2022-07-23] MEDS ORDERED: hydrALAZINE 20MG/ML 1ML VIAL IV STA ×3 (13:04→15:35)
[2022-07-23 13:38] LABS: HEMATOCRIT 34.4 % (36.0-47.0); HEMOGLOBIN 10.9 g/dl (12.0-15.5); MEAN CORPUSCULAR HEMOGLOBIN 30.6 pg (27.0-33.0); MEAN CORPUSCULAR HGB CONC 31.7 g/dl (32.0-36.5); MEAN CORPUSCULAR VOLUME 96.6 fl (80.0-96.0); PLATELET COUNT, AUTOMATED 187 10^3/uL (150-450); RED BLOOD COUNT 3.56 10^6/uL (4.00-5.40); WHITE BLOOD COUNT 7.2 10^3/uL (4.0-10.0)
[2022-07-23 13:50] LABS: ALBUMIN 3.7 G/DL (3.2-5.2); ALKALINE PHOSPHATASE 73 U/L (46-116); ALT/SGPT 15 U/L (7.0-40); AST/SGOT < 8 U/L (<34); BILIRUBIN,DIRECT 0.1 MG/DL (<0.4); BILIRUBIN,TOTAL 0.3 MG/DL (0.3-1.2); BLOOD UREA NITROGEN 43 MG/DL (9-23); CALCIUM LEVEL 8.7 MG/DL (8.3-10.6); CARBON DIOXIDE LEVEL 25 MMOL/L (20-31); CHLORIDE LEVEL 107 MMOL/L (98-107); CREATININE FOR GFR 1.67 MG/DL (0.55-1.30); GLOMERULAR FILTRATION RATE 31.6 (>39); GLUCOSE, FASTING 104 MG/DL (74-106); SODIUM LEVEL 141 MMOL/L (136-145); TOTAL PROTEIN 7.2 G/DL (5.7-8.2)
[2022-07-23 13:52] LABS: THYROID STIMULATING HORMONE 0.273 uIU/ML (0.55-4.78); THYROXINE (T4) 11.1 UG/DL (4.5-10.9)
[2022-07-23 14:33] LABS: ATYPICAL LYMPH 1 % (0-5); LYMPHOCYTES 10 % (16-44); METAMYELOCYTES 1 % (0-0); MONOCYTES 7 % (0-5); MYELOCYTES 1 % (0-0); NEUTROPHILS 80 % (28-66)
[2022-07-23 14:34] LABS: ANISOCYTOSIS 1+
[2022-07-23 14:35] LABS: PLATELET ESTIMATE NORMAL (NORMAL)
[2022-07-23] MEDS ORDERED: PRED20TA PO (16:19)
[2022-07-23] MEDS ORDERED: DOXY-443 PO (16:19)
[2022-07-23] MEDS ORDERED: guaiFENesin 200 MG TAB PO PRN (16:20)
[2022-07-23] MEDS ORDERED: ALBUTEROL 90 MCG/ACT 8GM HFA INHALER INH PRN (16:20)
[2022-07-23] MEDS ORDERED: hydrALAZINE 20MG/ML 1ML VIAL IV PRN (16:20)
[2022-07-23] MEDS ORDERED: SODIUM CHLORIDE NASAL 0.65% SPRAY BTL (OCEAN) PRN (16:20)
[2022-07-23] MEDS ORDERED: HOME MED LIST COMPLETE! XX SCH (16:25)
[2022-07-23] MEDS ORDERED: LOSARTAN 50MG TABLET PO SCH (18:05)
[2022-07-23] MEDS: **hydrALAZINE** 10 MG TAB PO SCH (18:05)
[2022-07-23] MEDS: ACETAMINOPHEN TAB 650MG DOSE (2X325MG) PO PRN ×2 (18:43→18:44)
[2022-07-23] MEDS ORDERED: **hydrALAZINE** 10 MG TAB PO SCH (21:00)
[2022-07-23 21:16] VITALS: BP 193/80
[2022-07-23] MEDS: predniSONE 20 MG TAB PO SCH (21:22)
[2022-07-23] MEDS: CARVedilol 12.5 MG TAB PO SCH (21:22)
[2022-07-23] MEDS: OMEPRAZOLE 20MG CAP PO SCH (21:22)
[2022-07-23] MEDS: ASPIRIN 81MG ENTERIC TABLET PO SCH (21:22)
[2022-07-23 21:34] VITALS: BP 193/80
[2022-07-23 22:00] VITALS: BP 179/76
[2022-07-23 22:55] VITALS: BP_SYST 184; BP_SYST 186; BP_DIAS 72
[2022-07-23] MEDS ORDERED: ONDANSETRON 4MG 2ML VIAL IV ONE (22:55)
[2022-07-23] MEDS ORDERED: MORPHINE 2 MG/ML 1ML VIAL IV ONE (22:55)
[2022-07-23 23:38] VITALS: BP_SYST 188; BP_DIAS 60; BP_DIAS 68
[2022-07-24] VITALS (8 sets, daily range): BP systolic 142–180; BP diastolic 52–76
[2022-07-24] MEDS: ACETAMINOPHEN TAB 650MG DOSE (2X325MG) PO PRN ×2 (00:28→05:43)
[2022-07-24] MEDS ORDERED: hydrALAZINE 20MG/ML 1ML VIAL As Ordered ONE (02:26)
[2022-07-24 05:32] LABS: HEMATOCRIT 31.1 % (36.0-47.0); HEMOGLOBIN 10.2 g/dl (12.0-15.5); MEAN CORPUSCULAR HEMOGLOBIN 31.1 pg (27.0-33.0); MEAN CORPUSCULAR HGB CONC 32.8 g/dl (32.0-36.5); MEAN CORPUSCULAR VOLUME 94.8 fl (80.0-96.0); PLATELET COUNT, AUTOMATED 194 10^3/uL (150-450); RED BLOOD COUNT 3.28 10^6/uL (4.00-5.40); WHITE BLOOD COUNT 7.7 10^3/uL (4.0-10.0)
[2022-07-24] MEDS: LEVOTHYROXINE 75MCG TABLET (0.075MG) PO SCH (05:42)
[2022-07-24 06:00] LABS: ALBUMIN 3.2 G/DL (3.2-5.2); BILIRUBIN,TOTAL 0.3 MG/DL (0.3-1.2); CALCIUM LEVEL 8.7 MG/DL (8.3-10.6); CREATININE FOR GFR 1.47 MG/DL (0.55-1.30); GLOMERULAR FILTRATION RATE 36.6 (>39); POTASSIUM SERUM 4.2 MMOL/L (3.5-5.1); TOTAL PROTEIN 6.5 G/DL (5.7-8.2)
[2022-07-24] MEDS ORDERED: LOSARTAN 50MG TABLET PO SCH (09:00)
[2022-07-24] MEDS ORDERED: EXCEDRIN MIGRAINE TABLET PO PRN (09:25)
[2022-07-24] MEDS: CARVedilol 12.5 MG TAB PO SCH ×2 (10:01→20:13)
[2022-07-24] MEDS: CYANOCOBALAMIN 500 MCG TAB PO SCH (10:01)
[2022-07-24] MEDS: ATORVASTATIN 20 MG TAB PO SCH (10:01)
[2022-07-24] MEDS: CALCITRIOL 0.25 MCG CAP (S0169) PO SCH (10:02)
[2022-07-24] MEDS: LOSARTAN 50MG TABLET PO SCH (10:02)
[2022-07-24] MEDS: ACETAMINOPH W/CODEINE #3 TAB UD PO PRN ×2 (10:02→20:13)
[2022-07-24] MEDS: FUROSEMIDE 40 MG TAB PO SCH (10:03)
[2022-07-24] MEDS: predniSONE 20 MG TAB PO SCH ×2 (10:03→20:13)
[2022-07-24] MEDS: **hydrALAZINE** 10 MG TAB PO SCH ×3 (10:03→20:14)
[2022-07-24] MEDS: FLUTICASONE PROP 0.05% NASAL SPRAY 16 GM (FLONASE) NARES SCH ×2 (11:51→20:12)
[2022-07-24] MEDS: SODIUM CHLORIDE NASAL 0.65% SPRAY BTL (OCEAN) SCH ×3 (11:51→23:47)
[2022-07-24] MEDS: ADVAIR HFA 230/21MCG INHALER INH SCH (20:05)
[2022-07-24] MEDS: ASPIRIN 81MG ENTERIC TABLET PO SCH (20:13)
[2022-07-24] MEDS: OMEPRAZOLE 20MG CAP PO SCH (20:13)
[2022-07-25 00:01] VITALS: BP 174/62
[2022-07-25 04:05] VITALS: BP 176/74
[2022-07-25] MEDS: LEVOTHYROXINE 75MCG TABLET (0.075MG) PO SCH (05:21)
[2022-07-25] MEDS: SODIUM CHLORIDE NASAL 0.65% SPRAY BTL (OCEAN) SCH (05:21)
[2022-07-25] MEDS: ADVAIR HFA 230/21MCG INHALER INH SCH (07:21)
[2022-07-25 07:44] VITALS: BP 135/65
[2022-07-25] MEDS: ATORVASTATIN 20 MG TAB PO SCH (08:05)
[2022-07-25] MEDS: FUROSEMIDE 40 MG TAB PO SCH (08:05)
[2022-07-25] MEDS: CALCITRIOL 0.25 MCG CAP (S0169) PO SCH (08:05)
[2022-07-25] MEDS: predniSONE 20 MG TAB PO SCH (08:06)
[2022-07-25] MEDS: CARVedilol 12.5 MG TAB PO SCH (08:06)
[2022-07-25] MEDS: LOSARTAN 50MG TABLET PO SCH (08:06)
[2022-07-25] MEDS: CYANOCOBALAMIN 500 MCG TAB PO SCH (08:06)
[2022-07-25] MEDS: FLUTICASONE PROP 0.05% NASAL SPRAY 16 GM (FLONASE) NARES SCH (08:06)
[2022-07-25 08:07] VITALS: BP 135/65
[2022-07-25] MEDS ORDERED: FLUT50SP17 NARES (08:31)
[2022-07-25] MEDS ORDERED: GUAI20TA PO (08:31)
[2022-07-25] MEDS ORDERED: HYDR25TA PO ×2 (08:31→08:49)
[2022-07-25] MEDS ORDERED: LOSA100T46 PO (08:31)
[2022-07-25] MEDS ORDERED: **hydrALAZINE HCL** 25 MG TAB PO SCH (09:00)
== END 2022-07-25 10:51 | disposition home or self-care (01) ==
LOC: M ED 11:56 → M ED INP 16:16 → ENRESERV 19:50 → M PCU 21:10
PROVIDERS: ADMIT Family Medicine; ATTEND Family Medicine
DX: I16.0 Hypertensive urgency (principal); J12.2 Parainfluenza virus pneumonia; I10 Essential (primary) hypertension; J44.9 Chronic obstructive pulmonary disease, unspecified; C34.31 Malignant neoplasm of lower lobe, right bronchus or lung; Z92.3 Personal history of irradiation; I25.10 Atherosclerotic heart disease of native coronary artery without angina pectoris; Z98.61 Coronary angioplasty status; Z79.82 Long term (current) use of aspirin; Z79.899 Other long term (current) drug therapy; Z79.52 Long term (current) use of systemic steroids; Z88.2 Allergy status to sulfonamides; Z88.0 Allergy status to penicillin; Z88.8 Allergy status to other drugs, medicaments and biological substances
CPT/HCPCS: 36415; 70450; 71045; 80048; 80053; 80076; 83605; 83735; 83880; 84436; 84443; 85025; 85027; 87040; 87486; 87581; 87633; 87798; 93005; 93041; 94640; 94760; 96374; 96375; 96376; 99285; G0378; G0463; J0360; J2405; J7512

== ENCOUNTER → 2022-07-30 | Outpatient (CLI) | payer MEDICARE, MEDICAID ==
[~2022-07-30] MED LIST changes: +FLUT50SP17 NARES; +GUAI20TA PO; +HYDR25TA PO; +PRED20TA PO
== END ==
LOC: M ONCR 12:57
PROVIDERS: ATTEND General Practice
DX: Z01.89 Encounter for other specified special examinations (principal)

== ENCOUNTER 2022-08-12 12:06 | Emergency (ER) | payer MEDICAID, MEDICARE ==
[~2022-08-12] VITALS: Ht 157.5 cm; Wt 63.6 kg
[2022-08-12] MEDS ORDERED: NS 1,910 ML in IV 1 EA IV ONE (12:35)
[2022-08-12 13:10] LABS: EOS # 0.1 10^3/uL (0.0-0.5); EOS % 1.8 % (0.0-3.0); HEMATOCRIT 31.5 % (36.0-47.0); HEMOGLOBIN 10.2 g/dl (12.0-15.5); LYMPH # 0.5 10^3/uL (1.5-5.0); MEAN CORPUSCULAR HEMOGLOBIN 31.1 pg (27.0-33.0); MEAN CORPUSCULAR HGB CONC 32.4 g/dl (32.0-36.5); MONO # 0.3 10^3/uL (0.0-0.8); MONO % 8.9 % (2.0-8.0); NEUTROPHILS % 72.2 % (36.0-66.0); PLATELET COUNT, AUTOMATED 137 10^3/uL (150-450); RED BLOOD COUNT 3.28 10^6/uL (4.00-5.40); WHITE BLOOD COUNT 2.8 10^3/uL (4.0-10.0)
[2022-08-12 13:35] LABS: ALBUMIN 3.1 G/DL (3.2-5.2); BILIRUBIN,DIRECT 0.1 MG/DL (<0.4); BILIRUBIN,TOTAL 0.3 MG/DL (0.3-1.2); CALCIUM LEVEL 8.1 MG/DL (8.3-10.6); CREATININE FOR GFR 1.66 MG/DL (0.55-1.30); GLOMERULAR FILTRATION RATE 31.8 (>39); POTASSIUM SERUM 3.5 MMOL/L (3.5-5.1)
[2022-08-12 13:41] LABS: THYROID STIMULATING HORMONE 0.799 uIU/ML (0.55-4.78)
[2022-08-12 16:30] VITALS: BP 178/81
[2022-08-14] MEDS ORDERED: LEVO1TAB38 PO (08:00)
== END 2022-08-12 16:45 | disposition home or self-care (01) ==
LOC: M ED 12:06 → EDBD 12:06 → M ED 16:45
DX: A08.11 Acute gastroenteropathy due to Norwalk agent (principal); R33.9 Retention of urine, unspecified; I25.10 Atherosclerotic heart disease of native coronary artery without angina pectoris; J44.9 Chronic obstructive pulmonary disease, unspecified; I10 Essential (primary) hypertension; E78.5 Hyperlipidemia, unspecified; E03.9 Hypothyroidism, unspecified; Z79.82 Long term (current) use of aspirin; Z79.899 Other long term (current) drug therapy; Z88.2 Allergy status to sulfonamides; Z88.0 Allergy status to penicillin; Z88.6 Allergy status to analgesic agent

== ENCOUNTER → 2022-08-31 | Outpatient (REF) | payer MEDICARE, MEDICAID ==
[~2022-08-31] MED LIST changes: +LEVO1TAB38 PO
== END ==
LOC: M WUC 17:50
PROVIDERS: ATTEND Student in an Organized Health Care Education/Training Program
DX: R30.0 Dysuria (principal)

== ENCOUNTER → 2022-09-09 | Outpatient (CLI) | payer MEDICARE | LOC: M RAD 12:01 | PROVIDERS: ATTEND General Practice | DX: C34.11 Malignant neoplasm of upper lobe, right bronchus or lung (principal); J43.9 Emphysema, unspecified; J47.9 Bronchiectasis, uncomplicated; J84.10 Pulmonary fibrosis, unspecified; I70.0 Atherosclerosis of aorta; I25.10 Atherosclerotic heart disease of native coronary artery without angina pectoris ==

== ENCOUNTER → 2022-09-12 | Outpatient (CLI) | payer MEDICARE, MEDICAID | LOC: M ONCR 09:38 | PROVIDERS: ATTEND General Practice | DX: C34.31 Malignant neoplasm of lower lobe, right bronchus or lung (principal); C34.11 Malignant neoplasm of upper lobe, right bronchus or lung; Z92.3 Personal history of irradiation; Z87.891 Personal history of nicotine dependence; N31.9 Neuromuscular dysfunction of bladder, unspecified; Z71.2 Person consulting for explanation of examination or test findings; Z79.51 Long term (current) use of inhaled steroids; Z79.82 Long term (current) use of aspirin; Z79.899 Other long term (current) drug therapy; Z88.2 Allergy status to sulfonamides; Z88.6 Allergy status to analgesic agent; Z88.1 Allergy status to other antibiotic agents; Z88.8 Allergy status to other drugs, medicaments and biological substances ==

== ENCOUNTER 2022-09-19 10:07 | Outpatient (RCR) | payer MEDICARE, MEDICAID | END 2022-09-26 | LOC: M ONCR 10:07 | PROVIDERS: ATTEND General Practice | DX: C34.11 Malignant neoplasm of upper lobe, right bronchus or lung (principal); C34.31 Malignant neoplasm of lower lobe, right bronchus or lung ==

== ENCOUNTER 2022-10-07 07:46 | Outpatient (RCR) | payer MEDICARE, MEDICAID ==
[~2022-10-07 07:46] MED LIST changes: -AMIT25TA17 PO; +AMIT25TA19 PO
[2022-10-13] MEDS ORDERED: PRED50TA PO (13:14)
[2022-10-13] MEDS ORDERED: GABA-282 PO (13:15)
[2022-10-20] MEDS ORDERED: PERCOCET PO (10:30)
== END 2022-10-27 ==
LOC: M ONCR 07:46
PROVIDERS: ATTEND General Practice
DX: C34.31 Malignant neoplasm of lower lobe, right bronchus or lung (principal); C34.11 Malignant neoplasm of upper lobe, right bronchus or lung

== ENCOUNTER → 2022-11-05 | Outpatient (CLI) | payer MEDICARE, MEDICAID ==
[~2022-11-05] MED LIST changes: +GABA-282 PO
== END ==
LOC: M WUC 15:39
PROVIDERS: ATTEND Physician Assistant
DX: S52.501A Unspecified fracture of the lower end of right radius, initial encounter for closed fracture (principal); X58.XXXA Exposure to other specified factors, initial encounter; Y92.9 Unspecified place or not applicable; Y93.9 Activity, unspecified; Y99.9 Unspecified external cause status

== ENCOUNTER → 2022-11-07 | Outpatient (CLI) | payer MEDICARE, MEDICAID | LOC: M WHC 12:29 | PROVIDERS: ATTEND General Practice | DX: C34.31 Malignant neoplasm of lower lobe, right bronchus or lung (principal) ==

== ENCOUNTER → 2022-11-07 | Outpatient (CLI) | payer MEDICARE, MEDICAID | LOC: M ONCR 14:09 | PROVIDERS: ATTEND General Practice | DX: C34.11 Malignant neoplasm of upper lobe, right bronchus or lung (principal); S62.91XA Unspecified fracture of right hand, initial encounter for closed fracture; W19.XXXA Unspecified fall, initial encounter; Z79.891 Long term (current) use of opiate analgesic; S22.39XA Fracture of one rib, unspecified side, initial encounter for closed fracture ==

== ENCOUNTER → 2022-11-14 | Outpatient (CLI) | payer MEDICARE, MEDICAID | LOC: M SOG 14:14 | PROVIDERS: ATTEND Physician Assistant | DX: M25.531 Pain in right wrist (principal); S52.501D Unspecified fracture of the lower end of right radius, subsequent encounter for closed fracture with routine healing ==

== ENCOUNTER → 2022-11-20 | Outpatient (CLI) | payer MEDICARE, MEDICAID ==
[2022-11-20 16:46] LABS: HEMATOCRIT 31.5 % (36.0-47.0); HEMOGLOBIN 9.7 g/dl (12.0-15.5); MEAN CORPUSCULAR HEMOGLOBIN 29.9 pg (27.0-33.0); MEAN CORPUSCULAR HGB CONC 30.8 g/dl (32.0-36.5); MEAN CORPUSCULAR VOLUME 97.2 fl (80.0-96.0); PLATELET COUNT, AUTOMATED 212 10^3/uL (150-450); RED BLOOD COUNT 3.24 10^6/uL (4.00-5.40); WHITE BLOOD COUNT 5.7 10^3/uL (4.0-10.0)
[2022-11-20 16:58] LABS: HEMOGLOBIN A1c 5.7 % (4.0-6.0)
[2022-11-20 17:15] LABS: IRON (FE) 57 UG/DL (50-170); PERCENT SATURATION 19.7 % (13.2-45.0); TOTAL IRON BINDING CAPACITY 289 UG/DL (250-425)
[2022-11-20 17:16] LABS: ALBUMIN 3.5 G/DL (3.2-5.2); ALKALINE PHOSPHATASE 81 U/L (46-116); ALT/SGPT < 9 U/L (7.0-40); AST/SGOT 11 U/L (<34); BILIRUBIN,TOTAL 0.3 MG/DL (0.3-1.2); BLOOD UREA NITROGEN 33 MG/DL (9-23); CARBON DIOXIDE LEVEL 24 MMOL/L (20-31); CHLORIDE LEVEL 108 MMOL/L (98-107); CHOLESTEROL LEVEL 171 MG/DL (<200); CHOLESTEROL RISK RATIO 4.59 (<5); CREATININE FOR GFR 1.54 MG/DL (0.55-1.30); GLOMERULAR FILTRATION RATE 34.6 (>39); GLUCOSE, FASTING 108 MG/DL (74-106); HDL CHOLESTEROL 37.2 MG/DL (>40); LDL CHOLESTEROL 81.4 MG/DL (<100); NON-HDL-C 133.8 MG/DL; POTASSIUM SERUM 3.9 MMOL/L (3.5-5.1); SODIUM LEVEL 142 MMOL/L (136-145); THYROID STIMULATING HORMONE 2.633 uIU/ML (0.55-4.78); TOTAL PROTEIN 6.7 G/DL (5.7-8.2); TRIGLYCERIDES LEVEL 262 MG/DL (<150); VITAMIN B12 LEVEL 274 PG/ML (211-911)
[2022-11-20 17:17] LABS: FERRITIN 26.1 NG/ML (7.3-270.7)
[2022-11-20 17:18] LABS: FREE T4 1.05 NG/DL (0.89-1.76)
== END ==
LOC: M WUC 10:27
PROVIDERS: ATTEND Internal Medicine Hematology
DX: E78.00 Pure hypercholesterolemia, unspecified (principal); D63.1 Anemia in chronic kidney disease; N18.30 Chronic kidney disease, stage 3 unspecified; I12.9 Hypertensive chronic kidney disease with stage 1 through stage 4 chronic kidney disease, or unspecified chronic kidney disease; R31.0 Gross hematuria; I73.9 Peripheral vascular disease, unspecified

== ENCOUNTER → 2022-12-04 | Outpatient (CLI) | payer MEDICARE, MEDICAID ==
[~2022-12-04] MED LIST changes: +MECL-209 PO; -MECL1TAB31 PO
== END ==
LOC: M SOG 13:06
PROVIDERS: ATTEND Orthopaedic Surgery
DX: S52.501D Unspecified fracture of the lower end of right radius, subsequent encounter for closed fracture with routine healing (principal)

== ENCOUNTER 2022-12-12 05:44 | Emergency (ER) | payer MEDICARE, MEDICAID ==
[~2022-12-12] VITALS: Ht 157.5 cm; Wt 63.0 kg
[2022-12-12] MEDS ORDERED: NS 500 ML IV ONE (06:30)
[2022-12-12 06:37] LABS: BASO % 0.7 % (0.0-1.0); EOS # 0.2 10^3/uL (0.0-0.5); EOS % 3.4 % (0.0-3.0); HEMATOCRIT 31.3 % (36.0-47.0); LYMPH # 1.2 10^3/uL (1.5-5.0); LYMPH % 26.5 % (24.0-44.0); MEAN CORPUSCULAR HEMOGLOBIN 30.5 pg (27.0-33.0); MEAN CORPUSCULAR HGB CONC 31.9 g/dl (32.0-36.5); MEAN CORPUSCULAR VOLUME 95.4 fl (80.0-96.0); MONO # 0.5 10^3/uL (0.0-0.8); MONO % 10.3 % (2.0-8.0); NEUTROPHILS # 2.6 10^3/uL (1.5-8.5); NEUTROPHILS % 58.6 % (36.0-66.0); PLATELET COUNT, AUTOMATED 219 10^3/uL (150-450); RED BLOOD COUNT 3.28 10^6/uL (4.00-5.40); WHITE BLOOD COUNT 4.4 10^3/uL (4.0-10.0)
[2022-12-12] MEDS: MORPHINE 2 MG/ML 1ML VIAL IV PRN ×2 (06:43→07:18)
[2022-12-12 06:45] LABS: CALCIUM LEVEL 9.1 MG/DL (8.3-10.6); CREATININE FOR GFR 1.46 MG/DL (0.55-1.30); GLOMERULAR FILTRATION RATE 36.8 (>39); POTASSIUM SERUM 4.3 MMOL/L (3.5-5.1)
[2022-12-12] MEDS ORDERED: CARVedilol 12.5 MG TAB PO ONE (06:55)
[2022-12-12] MEDS ORDERED: LOSARTAN 50MG TABLET PO ONE (06:55)
[2022-12-12 07:07] VITALS: BP 211/88
[2022-12-12] MEDS ORDERED: LIDOCAINE 5% (LIDODERM) PATCH TD ONE (08:00)
[2022-12-12] MEDS ORDERED: ACETAMINOPHEN *IV* 1,000 MG in IV 1 EA IV ONE (08:30)
[2022-12-12] MEDS ORDERED: MIRA3350 PO (10:04)
[2022-12-12] MEDS ORDERED: HYDR-3713 PO (10:04)
[2022-12-12 10:33] VITALS: BP 174/78; TEMP 98.2; O2SAT 96
== END 2022-12-12 10:37 | disposition home or self-care (01) ==
LOC: M ED 05:44
DX: R07.81 Pleurodynia (principal); G62.82 Radiation-induced polyneuropathy; C34.90 Malignant neoplasm of unspecified part of unspecified bronchus or lung; I25.2 Old myocardial infarction; I49.3 Ventricular premature depolarization; J44.9 Chronic obstructive pulmonary disease, unspecified; K21.9 Gastro-esophageal reflux disease without esophagitis; I10 Essential (primary) hypertension; N18.30 Chronic kidney disease, stage 3 unspecified; Z86.79 Personal history of other diseases of the circulatory system; Z87.891 Personal history of nicotine dependence; Z79.01 Long term (current) use of anticoagulants; Z88.1 Allergy status to other antibiotic agents; Z88.2 Allergy status to sulfonamides; Z88.6 Allergy status to analgesic agent; Z88.8 Allergy status to other drugs, medicaments and biological substances; Z79.02 Long term (current) use of antithrombotics/antiplatelets; Z79.82 Long term (current) use of aspirin; Z79.811 Long term (current) use of aromatase inhibitors; Z79.899 Other long term (current) drug therapy
CPT/HCPCS: 71250; 74176; 80048; 85025; 93005; 93041; 96365; 96366; 96375; 99285; J0131

== ENCOUNTER → 2023-01-01 | Outpatient (CLI) | payer MEDICARE, MEDICAID ==
[~2023-01-01] MED LIST changes: +BACI1CAP PO; +CEFD300C42 PO; +DOXY-444 PO; +DOXY100C3 PO; +FLUT50SP17; +HYDR-3910 PO; +LASI20TA3 PO; +OXYC5CAP56 PO; +POLY17PO18 PO; +POTA10CA60 PO
[2023-01-01 17:37] LABS: BASO % 0.6 % (0.0-1.0); EOS # 0.1 10^3/uL (0.0-0.5); EOS % 1.7 % (0.0-3.0); HEMATOCRIT 32.5 % (36.0-47.0); HEMOGLOBIN 10.6 g/dl (12.0-15.5); LYMPH # 1.4 10^3/uL (1.5-5.0); MEAN CORPUSCULAR HEMOGLOBIN 30.9 pg (27.0-33.0); MEAN CORPUSCULAR HGB CONC 32.6 g/dl (32.0-36.5); MEAN CORPUSCULAR VOLUME 94.8 fl (80.0-96.0); MONO # 0.7 10^3/uL (0.0-0.8); MONO % 10.1 % (2.0-8.0); NEUTROPHILS # 4.6 10^3/uL (1.5-8.5); PLATELET COUNT, AUTOMATED 220 10^3/uL (150-450); RED BLOOD COUNT 3.43 10^6/uL (4.00-5.40); WHITE BLOOD COUNT 6.9 10^3/uL (4.0-10.0)
[2023-01-01 17:45] LABS: ALBUMIN 3.9 G/DL (3.2-5.2); BILIRUBIN,TOTAL 0.4 MG/DL (0.3-1.2); CALCIUM LEVEL 9.5 MG/DL (8.3-10.6); CREATININE FOR GFR 1.55 MG/DL (0.55-1.30); GLOMERULAR FILTRATION RATE 34.3 (>39); MAGNESIUM LEVEL 2.1 MG/DL (1.8-2.4); POTASSIUM SERUM 4.5 MMOL/L (3.5-5.1); TOTAL PROTEIN 7.3 G/DL (5.7-8.2)
== END ==
LOC: M PLALAB 15:05
PROVIDERS: ATTEND Physician Assistant
DX: S22.41XA Multiple fractures of ribs, right side, initial encounter for closed fracture (principal); D63.1 Anemia in chronic kidney disease; R52 Pain, unspecified; X58.XXXA Exposure to other specified factors, initial encounter; Y92.9 Unspecified place or not applicable; Y93.9 Activity, unspecified; Y99.9 Unspecified external cause status

== ENCOUNTER → 2023-01-22 | Outpatient (CLI) | payer MEDICARE, MEDICAID | LOC: M SOG 08:18 | PROVIDERS: ATTEND Orthopaedic Surgery | DX: S52.501D Unspecified fracture of the lower end of right radius, subsequent encounter for closed fracture with routine healing (principal); Z53.9 Procedure and treatment not carried out, unspecified reason ==

== ENCOUNTER → 2023-04-10 | Outpatient (CLI) | payer MEDICARE, MEDICAID ==
[~2023-04-10] MED LIST changes: +CEFD1CAP9 PO; -CEFD300C42 PO; +CLOP75TA2; -FLUT50SP17; -FLUT50SP17 NARES; +FLUTISP; +FLUTISP NARES; +IBAN150T6
== END ==
LOC: M SOG 11:20
PROVIDERS: ATTEND Physician Assistant
DX: R10.2 Pelvic and perineal pain (principal); Z96.643 Presence of artificial hip joint, bilateral; M51.36 Other intervertebral disc degeneration, lumbar region; M51.37 Other intervertebral disc degeneration, lumbosacral region; M61.49 Other calcification of muscle, multiple sites

== ENCOUNTER → 2023-04-20 | Outpatient (CLI) | payer MEDICARE, MEDICAID | LOC: M RAD 12:50 | PROVIDERS: ATTEND Internal Medicine Pulmonary Disease | DX: C34.31 Malignant neoplasm of lower lobe, right bronchus or lung (principal); I70.0 Atherosclerosis of aorta; I25.10 Atherosclerotic heart disease of native coronary artery without angina pectoris; S22.41XD Multiple fractures of ribs, right side, subsequent encounter for fracture with routine healing; I70.1 Atherosclerosis of renal artery; N26.1 Atrophy of kidney (terminal); Z90.49 Acquired absence of other specified parts of digestive tract; N28.1 Cyst of kidney, acquired ==

== ENCOUNTER → 2023-04-30 | Outpatient (REF) | payer MEDICARE, MEDICAID ==
[2023-04-30 15:59] LABS: APPEARANCE, URINE CLEAR (CLEAR); BACTERIA, URINE AUTO NEGATIVE (NEGATIVE); BILIRUBIN, URINE AUTO NEGATIVE (NEGATIVE); BLOOD, URINE BLOOD NEGATIVE (NEGATIVE); COLOR, URINE STRAW (YELLOW); GLUCOSE, URINE (UA) AUTO NEGATIVE (NEGATIVE); KETONE, URINE AUTO NEGATIVE (NEGATIVE); LEUKOCYTE ESTERASE, URINE AUTO TRACE (NEGATIVE); NITRITE, URINE AUTO NEGATIVE (NEGATIVE); PROTEIN, URINE AUTO NEGATIVE (NEGATIVE); RBC, URINE AUTO 0 /HPF (0-3); SPECIFIC GRAVITY URINE AUTO 1.006 (1.002-1.035); SQUAMOUS EPITHELIAL CELL UR AU 0 /HPF (0-6); UROBILINOGEN, URINE AUTO 0.2 mg/dL (0.0-2.0); WBC, URINE AUTO 5 /HPF (0-3)
== END ==
LOC: M SMT 15:22
PROVIDERS: ATTEND Physician Assistant
DX: R30.0 Dysuria (principal)

== ENCOUNTER 2023-05-11 18:27 | Emergency (ER) | payer MEDICARE, MEDICAID ==
[2023-05-11 20:28] VITALS: BP 190/78; TEMP 98.1; O2SAT 98
== END 2023-05-11 20:54 | disposition left against medical advice (07) ==
LOC: M ED 18:27
DX: Z53.21 Procedure and treatment not carried out due to patient leaving prior to being seen by health care provider (principal)

== ENCOUNTER → 2023-05-12 | Outpatient (CLI) | payer MEDICARE, MEDICAID | LOC: M SOG 07:55 | PROVIDERS: ATTEND Physician Assistant | DX: R10.2 Pelvic and perineal pain (principal); Z53.9 Procedure and treatment not carried out, unspecified reason ==

== ENCOUNTER 2023-05-23 10:04 | Observation (INO) | payer MEDICARE, MEDICAID ==
[~2023-05-23] VITALS: Ht 160 cm; Wt 59.8 kg
[~2023-05-23 10:04] MED LIST changes: -CLOP75TA2; +CLOP75TA2 PO; -FLUTISP; -HYDR-3910 PO; -HYDR25TA PO; +HYDR25TA87 PO; +HYDR25TA88 PO
[2023-05-23 10:44] LABS: BASO % 0.2 % (0.0-1.0); EOS # 0.1 10^3/uL (0.0-0.5); EOS % 0.8 % (0.0-3.0); HEMATOCRIT 31.5 % (36.0-47.0); HEMOGLOBIN 10.3 g/dl (12.0-15.5); LYMPH # 0.7 10^3/uL (1.5-5.0); LYMPH % 7.3 % (24.0-44.0); MEAN CORPUSCULAR HEMOGLOBIN 29.5 pg (27.0-33.0); MEAN CORPUSCULAR HGB CONC 32.7 g/dl (32.0-36.5); MEAN CORPUSCULAR VOLUME 90.3 fl (80.0-96.0); MONO # 0.3 10^3/uL (0.0-0.8); MONO % 3.4 % (2.0-8.0); NEUTROPHILS # 8.1 10^3/uL (1.5-8.5); NEUTROPHILS % 87.6 % (36.0-66.0); PLATELET COUNT, AUTOMATED 259 10^3/uL (150-450); RED BLOOD COUNT 3.49 10^6/uL (4.00-5.40); WHITE BLOOD COUNT 9.2 10^3/uL (4.0-10.0)
[2023-05-23 11:15] LABS: CK-MB VALUE MASS < 1.0 NG/ML (<3.6)
[2023-05-23 11:17] LABS: ALBUMIN 3.3 G/DL (3.2-5.2); ALKALINE PHOSPHATASE 106 U/L (46-116); ALT/SGPT 14 U/L (7.0-40); AST/SGOT 16 U/L (<34); BILIRUBIN,DIRECT 0.1 MG/DL (<0.4); BILIRUBIN,TOTAL 0.3 MG/DL (0.3-1.2); BLOOD UREA NITROGEN 18 MG/DL (9-23); CALCIUM LEVEL 9.1 MG/DL (8.3-10.6); CARBON DIOXIDE LEVEL 28 MMOL/L (20-31); CHLORIDE LEVEL 105 MMOL/L (98-107); CPK CREATINE PHOSPHOKINASE 39 U/L (34-145); CREATININE FOR GFR 1.07 MG/DL (0.55-1.30); GLOMERULAR FILTRATION RATE 52.7 (>39); GLUCOSE, FASTING 135 MG/DL (74-106); MB/CK RELATIVE INDEX 2.56 (< OR =4); POTASSIUM SERUM 4.1 MMOL/L (3.5-5.1); SODIUM LEVEL 138 MMOL/L (136-145); TOTAL PROTEIN 6.9 G/DL (5.7-8.2)
[2023-05-23 11:29] LABS: ABG BASE EXCESS 2.2 (-2.0-2.0); ABG HCO3 25.5 MMOL/L (22.0-26.0); ABG O2 SATURATION 93.7 % (95.0-99.0); ABG PARTIAL PRESSURE CO2 34.9 mmHg (35.0-45.0); ABG PARTIAL PRESSURE O2 66.2 mmHg (75.0-100.0); ABG STANDARD HCO3 26.3 MMOL/L. (22.0-26.0); ABG TOTAL CO2 26.5 MMOL/L (23.0-31.0); ABG pH (ARTERIAL) 7.481 UNITS (7.350-7.450)
[2023-05-23] MEDS: ACETAMINOPHEN TAB 650MG DOSE (2X325MG) PO ONE (11:31)
[2023-05-23 11:44] LABS: RSV AMPLIFICATION NEGATIVE (NEGATIVE)
[2023-05-23 12:28] LABS: CK-MB VALUE MASS < 1.0 NG/ML (<3.6)
[2023-05-23 12:29] LABS: CPK CREATINE PHOSPHOKINASE 47 U/L (34-145); MB/CK RELATIVE INDEX 2.12 (< OR =4)
[2023-05-23 12:34] LABS: URIC ACID 6.8 MG/DL (3.1-7.8)
[2023-05-23] MEDS: LIDOCAINE 2% 5ML JELLY UROJET TOP ONE (13:00)
[2023-05-23] MEDS ORDERED: ISOVUE-370 76% 100ML VIAL As Ordered ONE (13:49)
[2023-05-23 17:28] LABS: C REACTIVE PROTEIN QUANTITATIV 5.5 MG/DL (<1.0)
[2023-05-23] MEDS ORDERED: ALBUTEROL 90 MCG/ACT 8GM HFA INHALER INH PRN (17:30)
[2023-05-23] MEDS ORDERED: MOM 30ML SUSPENSION UDC PO PRN (17:30)
[2023-05-23] MEDS ORDERED: IPRATROPIUM 0.5MG/ALBUTEROL 2.5MG INH SOL UD 3ML (DUONEB) INH PRN (17:30)
[2023-05-23 17:41] LABS: PROCALCITONIN 0.22 ng/ml
[2023-05-23] MEDS: CEFEPIME HCL 2 GM in D5W MINI-BAG PLUS 50 ML IV ONE (17:49)
[2023-05-23] MEDS ORDERED: NIFE1TAB51 PO (17:51)
[2023-05-23] MEDS ORDERED: LABE200T5 PO (17:51)
[2023-05-23] MEDS ORDERED: ACET-645 PO (17:51)
[2023-05-23] MEDS ORDERED: HOME MED LIST COMPLETE! XX SCH (17:55)
[2023-05-23 17:56] LABS: INR 1.08; PARTIAL THROMBOPLASTIN TIME 29.3 SECONDS (24.8-34.2); PROTHROMBIN TIME 13.7 SECONDS (12.5-14.5)
[2023-05-23 18:34] LABS: COLLAGEN EPINEPHRINE 270 SECONDS (74-162)
[2023-05-23 19:15] LABS: COLLAGEN ADP > 300 SECONDS (56-103)
[2023-05-23] MEDS: ADVAIR HFA 115/21MCG INHALER INH SCH (20:37)
[2023-05-23] MEDS: DOCUSATE SODIUM 100MG CAPSULE PO SCH (22:05)
[2023-05-23] MEDS: CARVedilol 12.5 MG TAB PO SCH (22:05)
[2023-05-23] MEDS: ASPIRIN 81MG ENTERIC TABLET PO SCH (22:05)
[2023-05-23] MEDS: LABETALOL 200 MG TAB PO SCH (22:05)
[2023-05-23] MEDS: NIFEdipine 10 MG CAP PO SCH (22:05)
[2023-05-24] VITALS: BP 136/70; TEMP 97.2; O2SAT 96
[2023-05-24] MEDS: zolPIDEM TARTRATE 5 MG TAB PO ONE (01:12)
[2023-05-24] MEDS: CEFEPIME HCL 2 GM in D5W MINI-BAG PLUS 50 ML IV SCH (04:29)
[2023-05-24 05:10] VITALS: BP 141/65; TEMP 98.1; O2SAT 90
[2023-05-24] MEDS: LEVOTHYROXINE 75MCG TABLET (0.075MG) PO SCH (05:13)
[2023-05-24 06:40] LABS: HEMATOCRIT 27.3 % (36.0-47.0); HEMOGLOBIN 8.9 g/dl (12.0-15.5); MEAN CORPUSCULAR HEMOGLOBIN 29.4 pg (27.0-33.0); MEAN CORPUSCULAR HGB CONC 32.6 g/dl (32.0-36.5); MEAN CORPUSCULAR VOLUME 90.1 fl (80.0-96.0); PLATELET COUNT, AUTOMATED 249 10^3/uL (150-450); RED BLOOD COUNT 3.03 10^6/uL (4.00-5.40); WHITE BLOOD COUNT 9.8 10^3/uL (4.0-10.0)
[2023-05-24 07:06] LABS: CALCIUM LEVEL 8.6 MG/DL (8.3-10.6); CREATININE FOR GFR 1.2 MG/DL (0.55-1.30); GLOMERULAR FILTRATION RATE 46.1 (>39); MAGNESIUM LEVEL 1.9 MG/DL (1.8-2.4); POTASSIUM SERUM 3.9 MMOL/L (3.5-5.1)
[2023-05-24] MEDS: CALCITRIOL 0.25 MCG CAP (S0169) PO SCH (09:10)
[2023-05-24] MEDS: ATORVASTATIN 20 MG TAB PO SCH (09:10)
[2023-05-24] MEDS: OMEPRAZOLE 20MG CAP PO SCH (09:10)
[2023-05-24] MEDS: FUROSEMIDE 40 MG TAB PO SCH (09:10)
[2023-05-24] MEDS: ENOXAPARIN 40MG/0.4ML SYRINGE (J1650 PER 10MG) SC SCH (09:53)
[2023-05-24 14:00] VITALS: BP 146/64; TEMP 98.6; O2SAT 96
[2023-05-24] MEDS: ACETAMINOPHEN TAB 650MG DOSE (2X325MG) PO PRN (15:29)
[2023-05-24] MEDS: CEFEPIME HCL 1 GM in D5W MINI-BAG PLUS 50 ML IV SCH (18:03)
[2023-05-24] MEDS: zolPIDEM TARTRATE 5 MG TAB PO PRN (21:32)
[2023-05-24 22:00] VITALS: BP 146/82; TEMP 98.8; O2SAT 97
[2023-05-25 04:03] VITALS: TEMP 98.8; O2SAT 96
[2023-05-25 05:51] LABS: HEMATOCRIT 27.7 % (36.0-47.0); MEAN CORPUSCULAR HEMOGLOBIN 29.7 pg (27.0-33.0); MEAN CORPUSCULAR HGB CONC 32.5 g/dl (32.0-36.5); MEAN CORPUSCULAR VOLUME 91.4 fl (80.0-96.0); PLATELET COUNT, AUTOMATED 240 10^3/uL (150-450); RED BLOOD COUNT 3.03 10^6/uL (4.00-5.40); WHITE BLOOD COUNT 9.1 10^3/uL (4.0-10.0)
[2023-05-25 06:00] VITALS: BP 162/70
[2023-05-25 06:13] LABS: CALCIUM LEVEL 8.8 MG/DL (8.3-10.6); CREATININE FOR GFR 1.28 MG/DL (0.55-1.30); GLOMERULAR FILTRATION RATE 42.8 (>39); MAGNESIUM LEVEL 2.1 MG/DL (1.8-2.4); POTASSIUM SERUM 3.4 MMOL/L (3.5-5.1)
[2023-05-25] MEDS: POTASSIUM CHLORIDE 10MEQ SR TABLET PO ONE (09:12)
[2023-05-25 09:13] VITALS: BP 167/67
[2023-05-25] MEDS ORDERED: LEVO1TAB38 PO (11:27)
== END 2023-05-25 13:11 | disposition home or self-care (01) ==
LOC: M ED 10:04 → EDBD 10:04 → M ED INP 10:05 → EEVIPCON 10:05 → ENRESERVDT 20:01 → ENRESERVTM 20:01 → M MSPAV 23:58
PROVIDERS: ADMIT Internal Medicine; ATTEND Internal Medicine
DX: N39.0 Urinary tract infection, site not specified (principal); R33.9 Retention of urine, unspecified; N31.2 Flaccid neuropathic bladder, not elsewhere classified; R06.09 Other forms of dyspnea; R53.81 Other malaise; I25.5 Ischemic cardiomyopathy; I25.10 Atherosclerotic heart disease of native coronary artery without angina pectoris; I25.2 Old myocardial infarction; G89.29 Other chronic pain; C34.11 Malignant neoplasm of upper lobe, right bronchus or lung; C34.31 Malignant neoplasm of lower lobe, right bronchus or lung; E03.9 Hypothyroidism, unspecified; D63.1 Anemia in chronic kidney disease; N18.30 Chronic kidney disease, stage 3 unspecified; I12.9 Hypertensive chronic kidney disease with stage 1 through stage 4 chronic kidney disease, or unspecified chronic kidney disease; E78.5 Hyperlipidemia, unspecified; K21.9 Gastro-esophageal reflux disease without esophagitis; M19.90 Unspecified osteoarthritis, unspecified site; Z86.16 Personal history of COVID-19; J44.9 Chronic obstructive pulmonary disease, unspecified; Z79.82 Long term (current) use of aspirin; Z79.2 Long term (current) use of antibiotics; Z79.899 Other long term (current) drug therapy; Z88.2 Allergy status to sulfonamides; Z88.8 Allergy status to other drugs, medicaments and biological substances
CPT/HCPCS: 36415; 36600; 51701; 71045; 71275; 72125; 73630; 73700; 80047; 80048; 80076; 81001; 82550; 82553; 82803; 83735; 83880; 84145; 84484; 84550; 85025; 85027; 85576; 85610; 85730; 86140; 87040; 87086; 87486; 87581; 87631; 87633; 87798; 93005; 93041; 94640; 94760; 96365; 96366; 96372; 97161; 99285; G0378; J0692; J1650; Q9967

== ENCOUNTER 2023-07-12 08:08 | Observation (INO) | payer MEDICARE, MEDICAID ==
[~2023-07-12] VITALS: Ht 157.5 cm; Wt 61.0 kg
[~2023-07-12 08:08] MED LIST changes: +ACET-645 PO; +LABE200T5 PO; +NIFE1TAB51 PO
[2023-07-12] MEDS: ACETAMINOPHEN *IV* 1,000 MG in IV 1 EA IV ONE (09:43)
[2023-07-12] MEDS: NS 500 ML IV ONE (09:43)
[2023-07-12 09:55] LABS: BASO % 0.4 % (0.0-1.0); EOS # 0.2 10^3/uL (0.0-0.5); EOS % 2.1 % (0.0-3.0); HEMATOCRIT 31.8 % (36.0-47.0); HEMOGLOBIN 9.9 g/dl (12.0-15.5); LYMPH # 1.1 10^3/uL (1.5-5.0); LYMPH % 14.5 % (24.0-44.0); MEAN CORPUSCULAR HGB CONC 31.1 g/dl (32.0-36.5); MEAN CORPUSCULAR VOLUME 93.3 fl (80.0-96.0); MONO # 0.5 10^3/uL (0.0-0.8); MONO % 6.5 % (2.0-8.0); NEUTROPHILS # 5.5 10^3/uL (1.5-8.5); NEUTROPHILS % 75.9 % (36.0-66.0); PLATELET COUNT, AUTOMATED 243 10^3/uL (150-450); RED BLOOD COUNT 3.41 10^6/uL (4.00-5.40); WHITE BLOOD COUNT 7.2 10^3/uL (4.0-10.0)
[2023-07-12 10:26] LABS: ALBUMIN 3.4 G/DL (3.2-5.2); ALKALINE PHOSPHATASE 100 U/L (46-116); ALT/SGPT 14 U/L (7.0-40); AST/SGOT 13 U/L (<34); BILIRUBIN,DIRECT < 0.1 MG/DL (<0.4); BILIRUBIN,TOTAL 0.3 MG/DL (0.3-1.2); BLOOD UREA NITROGEN 28 MG/DL (9-23); CALCIUM LEVEL 9.1 MG/DL (8.3-10.6); CARBON DIOXIDE LEVEL 28 MMOL/L (20-31); CHLORIDE LEVEL 104 MMOL/L (98-107); CREATININE FOR GFR 1.47 MG/DL (0.55-1.30); GLOMERULAR FILTRATION RATE 36.5 (>39); GLUCOSE, FASTING 110 MG/DL (74-106); POTASSIUM SERUM 4.3 MMOL/L (3.5-5.1); SODIUM LEVEL 138 MMOL/L (136-145); TOTAL PROTEIN 6.8 G/DL (5.7-8.2)
[2023-07-12] MEDS: FUROSEMIDE 40 MG TAB PO ONE (12:14)
[2023-07-12] MEDS: NIFEdipine 30MG XL TAB PO ONE (12:14)
[2023-07-12] MEDS: CARVedilol 12.5 MG TAB PO ONE (12:14)
[2023-07-12 13:25] LABS: CK-MB VALUE MASS < 1.0 NG/ML (<3.6)
[2023-07-12 13:26] LABS: CPK CREATINE PHOSPHOKINASE 45 U/L (34-145); MB/CK RELATIVE INDEX 2.22 (< OR =4)
[2023-07-12 13:28] LABS: THYROID STIMULATING HORMONE 3.614 uIU/ML (0.55-4.78)
[2023-07-12 13:29] LABS: FREE T4 1.09 NG/DL (0.89-1.76)
[2023-07-12] MEDS ORDERED: cefTRIAXone SOD 1 GM in D5W MINI-BAG PLUS 50 ML IV ONE (14:30)
[2023-07-12] MEDS: LevoFLOXacin IV 750 MG in IV 1 EA IV ONE (14:53)
[2023-07-12 15:36] LABS: CK-MB VALUE MASS < 1.0 NG/ML (<3.6)
[2023-07-12 15:37] LABS: CPK CREATINE PHOSPHOKINASE 43 U/L (34-145); MB/CK RELATIVE INDEX 2.32 (< OR =4)
[2023-07-12] MEDS ORDERED: **hydrALAZINE** 50 MG TAB PO SCH (16:35)
[2023-07-12] MEDS: hydrALAZINE 20MG/ML 1ML VIAL IV ONE (16:36)
[2023-07-12] MEDS: hydrALAZINE 20MG/ML 1ML VIAL IV STA (16:38)
[2023-07-12] MEDS ORDERED: MOM 30ML SUSPENSION UDC PO PRN (16:40)
[2023-07-12] MEDS ORDERED: CARVedilol 12.5 MG TAB PO ONE ×2 (17:00)
[2023-07-12] MEDS ORDERED: CHLORTHALIDONE 25 MG TAB PO ONE (17:00)
[2023-07-12] MEDS ORDERED: hydrALAZINE 20MG/ML 1ML VIAL IV PRN (17:25)
[2023-07-12 17:40] VITALS: BP 173/73; TEMP 98; O2SAT 98
[2023-07-12] MEDS ORDERED: LOSA25TA13 PO (18:04)
[2023-07-12] MEDS ORDERED: HOME MED LIST COMPLETE! XX SCH (18:05)
[2023-07-12 18:18] LABS: PROCALCITONIN 0.05 ng/ml
[2023-07-12] MEDS: ACETAMINOPHEN TAB 650MG DOSE (2X325MG) PO PRN (19:42)
[2023-07-12 19:46] VITALS: BP 167/76; TEMP 98.3; O2SAT 98
[2023-07-12] MEDS ORDERED: FLUTICASONE PROP 0.05% NASAL SPRAY 16 GM (FLONASE) NARES SCH (21:40)
[2023-07-12] MEDS ORDERED: FLUTICASONE HFA 110MCG 12GM INHALER (FLOVENT) INH SCH (21:55)
[2023-07-12] MEDS: DOCUSATE SODIUM 100MG CAPSULE PO SCH (21:58)
[2023-07-12] MEDS: RAMELTEON 8 MG TAB (ROZEREM) PO ONE (21:58)
[2023-07-12] MEDS: HEPARIN SOD (PORCINE) 5000UNITS/ML 1ML VIAL/SYRINGE SC SCH (21:58)
[2023-07-13] VITALS (8 sets, daily range): BP systolic 103–178; BP diastolic 59–77; TEMP 97.9–98.7; O2SAT 97–98
[2023-07-13 01:13] LABS: TOTAL PROTEIN,RANDOM URINE 19.5 MG/DL (0.0-14.0)
[2023-07-13 01:18] LABS: CREATININE,RANDOM URINE 38.5 MG/DL
[2023-07-13 05:10] LABS: HEMATOCRIT 32.2 % (36.0-47.0); HEMOGLOBIN 10.2 g/dl (12.0-15.5); MEAN CORPUSCULAR HEMOGLOBIN 28.7 pg (27.0-33.0); MEAN CORPUSCULAR HGB CONC 31.7 g/dl (32.0-36.5); MEAN CORPUSCULAR VOLUME 90.7 fl (80.0-96.0); PLATELET COUNT, AUTOMATED 240 10^3/uL (150-450); RED BLOOD COUNT 3.55 10^6/uL (4.00-5.40); WHITE BLOOD COUNT 5.8 10^3/uL (4.0-10.0)
[2023-07-13 05:33] LABS: CALCIUM LEVEL 9.2 MG/DL (8.3-10.6); CREATININE FOR GFR 1.53 MG/DL (0.55-1.30); GLOMERULAR FILTRATION RATE 34.9 (>39)
[2023-07-13] MEDS: LR 1,000 ML IV SCH ×2 (07:45→08:00)
[2023-07-13] MEDS: ADVAIR HFA 230/21MCG INHALER INH SCH (09:13)
[2023-07-13] MEDS: CARVedilol 12.5 MG TAB PO SCH (11:00)
[2023-07-13] MEDS: NIFEdipine 30MG XL TAB PO SCH (11:00)
[2023-07-13] MEDS: LOSARTAN 25 MG TAB PO SCH (12:33)
[2023-07-13 12:51] LABS: CREATININE FOR GFR 1.34 MG/DL (0.55-1.30); GLOMERULAR FILTRATION RATE 40.6 (>39)
[2023-07-13] MEDS ORDERED: LEVO1TAB40 PO (13:06)
[2023-07-13] MEDS ORDERED: CARV12.5 PO (13:06)
[2023-07-13] MEDS ORDERED: CARV25TA PO (13:07)
[2023-07-14] MEDS ORDERED: LevoFLOXacin 750 MG TABLET PO SCH (06:00)
== END 2023-07-13 15:13 | disposition home or self-care (01) ==
LOC: M ED 08:08 → EEVIPCON 08:09 → M ED INP 08:09 → M ICU 17:35
PROVIDERS: ADMIT Student in an Organized Health Care Education/Training Program; ATTEND Student in an Organized Health Care Education/Training Program
DX: I16.0 Hypertensive urgency (principal); N39.0 Urinary tract infection, site not specified; I12.9 Hypertensive chronic kidney disease with stage 1 through stage 4 chronic kidney disease, or unspecified chronic kidney disease; N18.32 Chronic kidney disease, stage 3b; I73.9 Peripheral vascular disease, unspecified; I25.10 Atherosclerotic heart disease of native coronary artery without angina pectoris; I25.2 Old myocardial infarction; I95.1 Orthostatic hypotension; C34.11 Malignant neoplasm of upper lobe, right bronchus or lung; C34.31 Malignant neoplasm of lower lobe, right bronchus or lung; D63.1 Anemia in chronic kidney disease; N31.9 Neuromuscular dysfunction of bladder, unspecified; R33.8 Other retention of urine; N17.9 Acute kidney failure, unspecified; E03.9 Hypothyroidism, unspecified; K21.9 Gastro-esophageal reflux disease without esophagitis; M48.00 Spinal stenosis, site unspecified; J44.9 Chronic obstructive pulmonary disease, unspecified; E55.9 Vitamin D deficiency, unspecified; E78.5 Hyperlipidemia, unspecified; Z79.82 Long term (current) use of aspirin; Z79.899 Other long term (current) drug therapy; Z88.2 Allergy status to sulfonamides; Z88.8 Allergy status to other drugs, medicaments and biological substances
CPT/HCPCS: 36415; 70450; 74176; 80048; 80076; 81001; 82550; 82553; 82565; 82570; 84145; 84156; 84439; 84443; 84484; 85025; 85027; 87088; 87186; 93005; 93041; 93975; 94640; 96365; 96375; 96376; 97161; 97530; 99285; G0378; J0131; J0360; J1956

== ENCOUNTER → 2023-07-20 | Outpatient (CLI) | payer MEDICARE, MEDICAID ==
[~2023-07-20] MED LIST changes: +CARV25TA PO; +LEVO1TAB40 PO; +LOSA25TA13 PO
== END ==
LOC: M RAD 14:59
PROVIDERS: ATTEND General Practice
DX: C34.31 Malignant neoplasm of lower lobe, right bronchus or lung (principal); C34.11 Malignant neoplasm of upper lobe, right bronchus or lung

== ENCOUNTER → 2023-07-24 | Outpatient (CLI) | payer MEDICARE, MEDICAID ==
[~2023-07-24] MED LIST changes: +MECL-136 PO
== END ==
LOC: M ONCR 14:32
PROVIDERS: ATTEND General Practice
DX: D48.5 Neoplasm of uncertain behavior of skin (principal); Z85.118 Personal history of other malignant neoplasm of bronchus and lung; Z71.2 Person consulting for explanation of examination or test findings; Z79.02 Long term (current) use of antithrombotics/antiplatelets; Z79.51 Long term (current) use of inhaled steroids; Z79.82 Long term (current) use of aspirin; Z79.890 Hormone replacement therapy; Z79.899 Other long term (current) drug therapy; Z87.891 Personal history of nicotine dependence; Z88.1 Allergy status to other antibiotic agents; Z88.2 Allergy status to sulfonamides; Z88.6 Allergy status to analgesic agent; Z88.8 Allergy status to other drugs, medicaments and biological substances; Z92.3 Personal history of irradiation
CPT/HCPCS: 10005; 11102; 88305; G0463

== ENCOUNTER → 2023-07-28 | Outpatient (CLI) | payer MEDICARE, MEDICAID ==
[2023-07-28 10:55] LABS: HEMATOCRIT 31.5 % (36.0-47.0); HEMOGLOBIN 9.9 g/dl (12.0-15.5); MEAN CORPUSCULAR HEMOGLOBIN 29.1 pg (27.0-33.0); MEAN CORPUSCULAR HGB CONC 31.4 g/dl (32.0-36.5); MEAN CORPUSCULAR VOLUME 92.6 fl (80.0-96.0); PLATELET COUNT, AUTOMATED 237 10^3/uL (150-450); WHITE BLOOD COUNT 4.5 10^3/uL (4.0-10.0)
[2023-07-28 10:56] LABS: C REACTIVE PROTEIN QUANTITATIV 0.7 MG/DL (<1.0)
[2023-07-28 10:57] LABS: ALBUMIN 3.5 G/DL (3.2-5.2); BILIRUBIN,TOTAL 0.2 MG/DL (0.3-1.2); CALCIUM LEVEL 9.4 MG/DL (8.3-10.6); CHOLESTEROL RISK RATIO 4.94 (<5); CREATININE FOR GFR 1.34 MG/DL (0.55-1.30); GLOMERULAR FILTRATION RATE 40.6 (>39); HDL CHOLESTEROL 36.8 MG/DL (>40); LDL CHOLESTEROL 82.6 MG/DL (<100); MAGNESIUM LEVEL 2.1 MG/DL (1.8-2.4); NON-HDL-C 145.2 MG/DL; POTASSIUM SERUM 4.5 MMOL/L (3.5-5.1); TOTAL PROTEIN 6.7 G/DL (5.7-8.2)
[2023-07-28 11:01] LABS: THYROID STIMULATING HORMONE 2.585 uIU/ML (0.55-4.78); TOTAL 25(OH) VITAMIN D 25.7 NG/ML (20.0-100.0)
[2023-07-28 11:02] LABS: FREE T4 1.07 NG/DL (0.89-1.76)
[2023-07-28 11:03] LABS: HEMOGLOBIN A1c 5.1 % (4.0-6.0)
== END ==
LOC: M WUC 08:09
PROVIDERS: ATTEND Internal Medicine Hematology
DX: I25.10 Atherosclerotic heart disease of native coronary artery without angina pectoris (principal); D50.9 Iron deficiency anemia, unspecified; E83.42 Hypomagnesemia; I12.9 Hypertensive chronic kidney disease with stage 1 through stage 4 chronic kidney disease, or unspecified chronic kidney disease; E78.00 Pure hypercholesterolemia, unspecified; E03.9 Hypothyroidism, unspecified; D63.1 Anemia in chronic kidney disease; M81.0 Age-related osteoporosis without current pathological fracture; N18.30 Chronic kidney disease, stage 3 unspecified; Z79.899 Other long term (current) drug therapy

== ENCOUNTER 2023-08-12 08:56 | Outpatient (CLI) | payer MEDICARE, MEDICAID ==
[~2023-08-12] VITALS: Ht 160 cm; Wt 63.6 kg
[~2023-08-12 08:56] MED LIST changes: +ALBUTEROL SULFATE 2.5MG/0.5ML INH NEB SOLN INH PRN; +DOXY-323 PO; +DOXY-440 PO; -DOXY-443 PO; -DOXY-444 PO; +EPINEPHrine INJ 1 MG/ML 1ML AMP IM PRN; -POTA10CA60 PO; +POTA10CA70 PO; +diphenhydrAMINE 50MG/ML VIAL IV PRN; +methylPREDNISolone 125MG 2ML VIAL IV PRN
[2023-08-12 09:55] VITALS: BP 119/60; O2SAT 97
[2023-08-12] MEDS ORDERED: NS 1,000 ML IV SCH (10:00)
[2023-08-12] MEDS: IRON SUCROSE 200 MG in NS 100 ML OVER 1 HR IV ONE (10:07)
[2023-08-12 11:10] VITALS: BP 135/67; O2SAT 98
== END 2023-08-12 11:10 | disposition home or self-care (01) ==
LOC: M INFU 08:56
PROVIDERS: ATTEND Internal Medicine Hematology
DX: D50.9 Iron deficiency anemia, unspecified (principal); Z88.2 Allergy status to sulfonamides; Z88.1 Allergy status to other antibiotic agents; Z88.6 Allergy status to analgesic agent; Z88.8 Allergy status to other drugs, medicaments and biological substances
CPT/HCPCS: 96365; J1756

== ENCOUNTER 2023-08-19 10:30 | Outpatient (CLI) | payer MEDICARE, MEDICAID ==
[~2023-08-19] VITALS: Ht 157.5 cm; Wt 60.0 kg
[2023-08-19 10:30] VITALS: BP 126/60; O2SAT 97
[~2023-08-19 10:30] MED LIST changes: +NS 1,000 ML IV SCH
[2023-08-19] MEDS: IRON SUCROSE 200 MG in NS 100 ML OVER 1 HR IV ONE (10:36)
[2023-08-19 11:40] VITALS: BP 148/64; O2SAT 96
== END 2023-08-19 11:40 ==
LOC: M INFU 10:30
PROVIDERS: ATTEND Internal Medicine Hematology
DX: D50.9 Iron deficiency anemia, unspecified (principal); Z88.2 Allergy status to sulfonamides; Z88.6 Allergy status to analgesic agent; Z88.8 Allergy status to other drugs, medicaments and biological substances
CPT/HCPCS: 96365; J1756

== ENCOUNTER → 2023-08-21 | Outpatient (REF) | payer MEDICARE, MEDICAID ==
[~2023-08-21] MED LIST changes: -ALBUTEROL SULFATE 2.5MG/0.5ML INH NEB SOLN INH PRN; -EPINEPHrine INJ 1 MG/ML 1ML AMP IM PRN; -NS 1,000 ML IV SCH; -diphenhydrAMINE 50MG/ML VIAL IV PRN; -methylPREDNISolone 125MG 2ML VIAL IV PRN
== END ==
LOC: M LAB REF 13:26
PROVIDERS: ATTEND Surgery
DX: L85.8 Other specified epidermal thickening (principal); L56.8 Other specified acute skin changes due to ultraviolet radiation

== ENCOUNTER 2023-08-26 11:20 | Outpatient (CLI) | payer MEDICARE, MEDICAID ==
[~2023-08-26] VITALS: Ht 157.5 cm; Wt 62.1 kg
[~2023-08-26 11:20] MED LIST changes: +ALBUTEROL SULFATE 2.5MG/0.5ML INH NEB SOLN INH PRN; +EPINEPHrine INJ 1 MG/ML 1ML AMP IM PRN; +NS 1,000 ML IV SCH; +diphenhydrAMINE 50MG/ML VIAL IV PRN; +methylPREDNISolone 125MG 2ML VIAL IV PRN
[2023-08-26 11:25] VITALS: BP 139/63; O2SAT 97
[2023-08-26] MEDS: IRON SUCROSE 200 MG in NS 100 ML IV ONE (11:41)
[2023-08-26 12:45] VITALS: BP 152/66; O2SAT 98
== END 2023-08-26 12:45 | disposition home or self-care (01) ==
LOC: M INFU 11:20
PROVIDERS: ATTEND Internal Medicine Hematology
DX: D50.9 Iron deficiency anemia, unspecified (principal); Z88.2 Allergy status to sulfonamides; Z88.1 Allergy status to other antibiotic agents; Z88.6 Allergy status to analgesic agent
CPT/HCPCS: 96365; J1756

== ENCOUNTER → 2023-09-08 | Outpatient (CLI) | payer MEDICARE, MEDICAID ==
[~2023-09-08] MED LIST changes: -ALBUTEROL SULFATE 2.5MG/0.5ML INH NEB SOLN INH PRN; -EPINEPHrine INJ 1 MG/ML 1ML AMP IM PRN; -NS 1,000 ML IV SCH; -diphenhydrAMINE 50MG/ML VIAL IV PRN; -methylPREDNISolone 125MG 2ML VIAL IV PRN
[2023-09-08 13:26] LABS: BASO % 0.5 % (0.0-1.0); EOS # 0.1 10^3/uL (0.0-0.5); EOS % 2.1 % (0.0-3.0); HEMOGLOBIN 11.2 g/dl (12.0-15.5); LYMPH # 1.3 10^3/uL (1.5-5.0); LYMPH % 20.4 % (24.0-44.0); MEAN CORPUSCULAR HEMOGLOBIN 30.3 pg (27.0-33.0); MEAN CORPUSCULAR VOLUME 94.6 fl (80.0-96.0); MONO # 0.5 10^3/uL (0.0-0.8); MONO % 8.5 % (2.0-8.0); NEUTROPHILS # 4.3 10^3/uL (1.5-8.5); NEUTROPHILS % 67.9 % (36.0-66.0); PLATELET COUNT, AUTOMATED 231 10^3/uL (150-450); WHITE BLOOD COUNT 6.3 10^3/uL (4.0-10.0)
[2023-09-08 13:36] LABS: C REACTIVE PROTEIN QUANTITATIV 0.6 MG/DL (<1.0); FERRITIN 100.6 NG/ML (7.3-270.7); THYROID STIMULATING HORMONE 2.236 uIU/ML (0.55-4.78); TOTAL 25(OH) VITAMIN D 26.2 NG/ML (20.0-100.0)
[2023-09-08 13:38] LABS: ALBUMIN 3.7 G/DL (3.2-5.2); BILIRUBIN,TOTAL 0.3 MG/DL (0.3-1.2); CALCIUM LEVEL 9.3 MG/DL (8.3-10.6); CHOLESTEROL RISK RATIO 4.71 (<5); CREATININE FOR GFR 1.33 MG/DL (0.55-1.30); HDL CHOLESTEROL 36.7 MG/DL (>40); LDL CHOLESTEROL 73.7 MG/DL (<100); NON-HDL-C 136.3 MG/DL; POTASSIUM SERUM 4.1 MMOL/L (3.5-5.1); TOTAL PROTEIN 7.1 G/DL (5.7-8.2)
[2023-09-08 13:39] LABS: FREE T4 1.27 NG/DL (0.89-1.76)
[2023-09-08 14:04] LABS: CREATININE, URINE 61.8 MG/DL; MAU/CREAT RATIO 137.5 MCG/MG (0.0-30.0)
[2023-09-08 14:26] LABS: HEMOGLOBIN A1c 5.4 % (4.0-6.0)
== END ==
LOC: M PLALAB 09:00
PROVIDERS: ATTEND Internal Medicine Hematology
DX: I25.10 Atherosclerotic heart disease of native coronary artery without angina pectoris (principal); D63.1 Anemia in chronic kidney disease; E03.9 Hypothyroidism, unspecified; N18.30 Chronic kidney disease, stage 3 unspecified; Z79.899 Other long term (current) drug therapy

== ENCOUNTER 2023-11-13 11:39 | Emergency (ER) | payer MEDICARE, MEDICAID ==
[~2023-11-13] VITALS: Ht 157.5 cm; Wt 61.3 kg
[2023-11-13 11:40] VITALS: TEMP 97.6
[2023-11-13 13:09] LABS: BASO % 0.4 % (0.0-1.0); EOS # 0.2 10^3/uL (0.0-0.5); EOS % 2.6 % (0.0-3.0); HEMATOCRIT 38.3 % (36.0-47.0); HEMOGLOBIN 12.7 g/dl (12.0-15.5); LYMPH # 1.4 10^3/uL (1.5-5.0); LYMPH % 18.4 % (24.0-44.0); MEAN CORPUSCULAR HEMOGLOBIN 30.9 pg (27.0-33.0); MEAN CORPUSCULAR HGB CONC 33.2 g/dl (32.0-36.5); MEAN CORPUSCULAR VOLUME 93.2 fl (80.0-96.0); MONO # 0.6 10^3/uL (0.0-0.8); MONO % 7.7 % (2.0-8.0); NEUTROPHILS # 5.3 10^3/uL (1.5-8.5); NEUTROPHILS % 70.2 % (36.0-66.0); PLATELET COUNT, AUTOMATED 270 10^3/uL (150-450); RED BLOOD COUNT 4.11 10^6/uL (4.00-5.40); WHITE BLOOD COUNT 7.6 10^3/uL (4.0-10.0)
[2023-11-13 13:27] LABS: INR 1.05; PARTIAL THROMBOPLASTIN TIME 29.9 SECONDS (24.8-34.2); PROTHROMBIN TIME 13.3 SECONDS (12.5-14.5)
[2023-11-13 13:37] LABS: ERYTHROCYTE SEDIMENTATION RATE 65 mm/hr (0-30)
[2023-11-13 13:43] LABS: ALBUMIN 4.1 G/DL (3.2-5.2); ALKALINE PHOSPHATASE 109 U/L (46-116); ALT/SGPT 15 U/L (7.0-40); AST/SGOT 13 U/L (<34); BILIRUBIN,DIRECT < 0.1 MG/DL (<0.4); BILIRUBIN,TOTAL 0.5 MG/DL (0.3-1.2); BLOOD UREA NITROGEN 23 MG/DL (9-23); CALCIUM LEVEL 9.9 MG/DL (8.3-10.6); CARBON DIOXIDE LEVEL 26 MMOL/L (20-31); CHLORIDE LEVEL 105 MMOL/L (98-107); GLOMERULAR FILTRATION RATE 38.5 (>32); GLUCOSE, FASTING 104 MG/DL (74-106); POTASSIUM SERUM 4.1 MMOL/L (3.5-5.1); SODIUM LEVEL 140 MMOL/L (136-145)
[2023-11-13] MEDS ORDERED: LOSA50TA28 (13:49)
[2023-11-13] MEDS ORDERED: ALIR75PE3 (13:49)
[2023-11-13 15:17] VITALS: BP 148/62; O2SAT 99
== END 2023-11-13 15:19 | disposition home or self-care (01) ==
LOC: M ED 11:39
DX: M79.671 Pain in right foot (principal); I48.91 Unspecified atrial fibrillation; I11.0 Hypertensive heart disease with heart failure; I25.2 Old myocardial infarction; R42 Dizziness and giddiness; N18.30 Chronic kidney disease, stage 3 unspecified; E03.9 Hypothyroidism, unspecified; Z86.73 Personal history of transient ischemic attack (TIA), and cerebral infarction without residual deficits; Z87.891 Personal history of nicotine dependence; Z79.01 Long term (current) use of anticoagulants; Z79.82 Long term (current) use of aspirin; Z79.899 Other long term (current) drug therapy; Z88.2 Allergy status to sulfonamides; Z88.1 Allergy status to other antibiotic agents; Z88.6 Allergy status to analgesic agent; Z88.8 Allergy status to other drugs, medicaments and biological substances

== ENCOUNTER → 2023-11-20 | Outpatient (REF) | payer MEDICARE, MEDICAID ==
[~2023-11-20] MED LIST changes: +ALIR75PE3; +LOSA50TA28
[2023-11-20 12:54] LABS: APPEARANCE, URINE CLOUDY (CLEAR); BACTERIA, URINE AUTO 2+ (NEGATIVE); BILIRUBIN, URINE AUTO NEGATIVE (NEGATIVE); BLOOD, URINE BLOOD 1+ (NEGATIVE); COLOR, URINE YELLOW (YELLOW); GLUCOSE, URINE (UA) AUTO NEGATIVE (NEGATIVE); KETONE, URINE AUTO NEGATIVE (NEGATIVE); LEUKOCYTE ESTERASE, URINE AUTO 3+ (NEGATIVE); NITRITE, URINE AUTO NEGATIVE (NEGATIVE); PROTEIN, URINE AUTO 2+ mg/dL (NEGATIVE); RBC, URINE AUTO 10 /HPF (0-3); SQUAMOUS EPITHELIAL CELL UR AU 0 /HPF (0-6); UROBILINOGEN, URINE AUTO 0.2 mg/dL (0.0-2.0); WBC, URINE AUTO TNTC /HPF (0-3)
== END ==
LOC: M SMT 12:36
PROVIDERS: ATTEND Physician Assistant
DX: Z87.440 Personal history of urinary (tract) infections (principal); Z79.899 Other long term (current) drug therapy

== ENCOUNTER → 2024-01-19 | Outpatient (CLI) | payer MEDICARE, MEDICAID ==
[~2024-01-19] MED LIST changes: -DOXY-323 PO; +DOXY-441 PO; +GABA-1172 PO; -GABA-282 PO
== END ==
LOC: M RAD 12:44
PROVIDERS: ATTEND General Practice
DX: C34.11 Malignant neoplasm of upper lobe, right bronchus or lung (principal); I25.10 Atherosclerotic heart disease of native coronary artery without angina pectoris; I70.0 Atherosclerosis of aorta; I70.1 Atherosclerosis of renal artery; S22.41XD Multiple fractures of ribs, right side, subsequent encounter for fracture with routine healing

== ENCOUNTER → 2024-01-29 | Outpatient (CLI) | payer MEDICARE, MEDICAID | LOC: M ONCR 08:59 | PROVIDERS: ATTEND General Practice | DX: C34.11 Malignant neoplasm of upper lobe, right bronchus or lung (principal); C34.31 Malignant neoplasm of lower lobe, right bronchus or lung; R07.81 Pleurodynia; Z79.02 Long term (current) use of antithrombotics/antiplatelets; Z79.51 Long term (current) use of inhaled steroids; Z79.82 Long term (current) use of aspirin; Z79.890 Hormone replacement therapy; Z79.899 Other long term (current) drug therapy; Z87.891 Personal history of nicotine dependence; Z88.1 Allergy status to other antibiotic agents; Z88.2 Allergy status to sulfonamides; Z88.6 Allergy status to analgesic agent; Z88.8 Allergy status to other drugs, medicaments and biological substances; Z92.3 Personal history of irradiation ==

== ENCOUNTER → 2024-01-30 | Outpatient (REF) | payer MEDICARE | LOC: M LAB REF 20:21 | PROVIDERS: ATTEND Physician Assistant Medical | DX: N39.0 Urinary tract infection, site not specified (principal) ==

== ENCOUNTER 2024-02-05 10:32 | Emergency (ER) | payer MEDICARE ==
[~2024-02-05] VITALS: Ht 157.5 cm; Wt 57.8 kg
[~2024-02-05 10:32] MED LIST changes: +ATOR-398 PO; +IBAN150T10; -IBAN150T6; -LIPI80TA PO
[2024-02-05] MEDS ORDERED: NIFE1TAB51 (10:54)
[2024-02-05] MEDS ORDERED: LOSA25TA13 (10:54)
[2024-02-05] MEDS ORDERED: NITR100C2 (10:54)
[2024-02-05 11:10] LABS: BASO % 0.4 % (0.0-1.0); EOS # 0.8 10^3/uL (0.0-0.5); EOS % 7.1 % (0.0-3.0); HEMATOCRIT 33.8 % (36.0-47.0); HEMOGLOBIN 10.9 g/dl (12.0-15.5); LYMPH # 1.2 10^3/uL (1.5-5.0); MEAN CORPUSCULAR HEMOGLOBIN 31.3 pg (27.0-33.0); MEAN CORPUSCULAR HGB CONC 32.2 g/dl (32.0-36.5); MEAN CORPUSCULAR VOLUME 97.1 fl (80.0-96.0); MONO # 0.6 10^3/uL (0.0-0.8); MONO % 5.6 % (2.0-8.0); NEUTROPHILS # 8.1 10^3/uL (1.5-8.5); NEUTROPHILS % 75.1 % (36.0-66.0); PLATELET COUNT, AUTOMATED 240 10^3/uL (150-450); RED BLOOD COUNT 3.48 10^6/uL (4.00-5.40); WHITE BLOOD COUNT 10.8 10^3/uL (4.0-10.0)
[2024-02-05 11:12] LABS: VENOUS BASE EXCESS -1.5 (-2.0-2.0); VENOUS HCO3 24.6 MMOL/L (23.0-27.0); VENOUS O2 SATURATION 56.2 % (60.0-80.0); VENOUS PARTIAL PRESSURE CO2 47.2 mmHg (38.0-50.0); VENOUS PARTIAL PRESSURE O2 31.7 mmHg (30.0-50.0); VENOUS PH 7.335 UNITS (7.330-7.430); VENOUS STANDARD HCO3 22.4 MMOL/L; VENOUS TOTAL CO2 26.1 MMOL/L (24.0-28.0)
[2024-02-05 11:28] LABS: BILIRUBIN,DIRECT 0.1 MG/DL (<0.4); BILIRUBIN,TOTAL 0.3 MG/DL (0.3-1.2); CALCIUM LEVEL 9.6 MG/DL (8.3-10.6); CREATININE FOR GFR 1.59 MG/DL (0.55-1.30); GLOMERULAR FILTRATION RATE 33.3 (>32); POTASSIUM SERUM 4.8 MMOL/L (3.5-5.1); TOTAL PROTEIN 7.3 G/DL (5.7-8.2)
[2024-02-05 11:31] LABS: THYROID STIMULATING HORMONE 1.162 uIU/ML (0.55-4.78)
[2024-02-05] MEDS: NS 500 ML IV ONE (11:51)
[2024-02-05] MEDS: cefTRIAXone SOD 1 GM in DEXTROSE 5% (D5W) ADV/MINI-BAG 50 ML IV ONE (13:41)
[2024-02-05] MEDS ORDERED: ZITHTAB PO (16:01)
[2024-02-05] MEDS ORDERED: CEFD300C PO (16:01)
[2024-02-05 16:28] VITALS: BP 139/64; TEMP 99; O2SAT 95
== END 2024-02-05 16:29 | disposition home or self-care (01) ==
LOC: EDBD 10:32 → M ED 10:32
DX: J18.1 Lobar pneumonia, unspecified organism (principal); N31.9 Neuromuscular dysfunction of bladder, unspecified; I25.10 Atherosclerotic heart disease of native coronary artery without angina pectoris; I25.2 Old myocardial infarction; I12.9 Hypertensive chronic kidney disease with stage 1 through stage 4 chronic kidney disease, or unspecified chronic kidney disease; E78.5 Hyperlipidemia, unspecified; I25.5 Ischemic cardiomyopathy; E07.9 Disorder of thyroid, unspecified; J44.9 Chronic obstructive pulmonary disease, unspecified; Z85.828 Personal history of other malignant neoplasm of skin; Z86.718 Personal history of other venous thrombosis and embolism; Z98.61 Coronary angioplasty status; Z87.891 Personal history of nicotine dependence; R93.0 Abnormal findings on diagnostic imaging of skull and head, not elsewhere classified; Z79.82 Long term (current) use of aspirin; Z79.899 Other long term (current) drug therapy; Z88.2 Allergy status to sulfonamides; Z88.8 Allergy status to other drugs, medicaments and biological substances; Z88.0 Allergy status to penicillin; Z88.6 Allergy status to analgesic agent
CPT/HCPCS: 70450; 70544; 70551; 71045; 80048; 80076; 81001; 82803; 83605; 83930; 84443; 85025; 87040; 87086; 87486; 87581; 87633; 87798; 93005; 93041; 94760; 96374; 99285; J0696

== ENCOUNTER → 2024-03-11 | Outpatient (REF) | payer MEDICARE, MEDICAID ==
[~2024-03-11] MED LIST changes: +CEFD300C PO; +LOSA25TA13; +NIFE1TAB51; +NITR100C2; +ZITHTAB PO
== END ==
LOC: M SFHCPLAZ 14:55
DX: J18.9 Pneumonia, unspecified organism (principal)

== ENCOUNTER → 2024-03-11 | Outpatient (CLI) | payer MEDICARE, MEDICAID | LOC: M PLALAB 15:13 | DX: J18.9 Pneumonia, unspecified organism (principal) ==

== ENCOUNTER 2024-03-16 08:09 | Emergency (ER) | payer MEDICARE, MEDICAID ==
[~2024-03-16] VITALS: Ht 157.5 cm; Wt 57.1 kg
[2024-03-16] MEDS: ONDANSETRON 4MG 2ML VIAL IV ONE (11:49)
[2024-03-16] MEDS: MORPHINE 2 MG/ML 1ML VIAL IV ONE (11:50)
[2024-03-16] MEDS: LIDOCAINE 1% MDV 20ML VIAL SC ONE (12:00)
[2024-03-16 12:36] LABS: BASO # 0.1 10^3/uL (0.0-0.2); BASO % 0.6 % (0.0-1.0); EOS # 0.2 10^3/uL (0.0-0.5); EOS % 1.8 % (0.0-3.0); HEMATOCRIT 36.6 % (36.0-47.0); LYMPH # 2.3 10^3/uL (1.5-5.0); LYMPH % 25.6 % (24.0-44.0); MEAN CORPUSCULAR HEMOGLOBIN 30.6 pg (27.0-33.0); MEAN CORPUSCULAR HGB CONC 32.8 g/dl (32.0-36.5); MEAN CORPUSCULAR VOLUME 93.4 fl (80.0-96.0); MONO # 0.6 10^3/uL (0.0-0.8); MONO % 7.2 % (2.0-8.0); NEUTROPHILS # 5.7 10^3/uL (1.5-8.5); NEUTROPHILS % 64.5 % (36.0-66.0); PLATELET COUNT, AUTOMATED 239 10^3/uL (150-450); RED BLOOD COUNT 3.92 10^6/uL (4.00-5.40); WHITE BLOOD COUNT 8.8 10^3/uL (4.0-10.0)
[2024-03-16 12:46] LABS: CALCIUM LEVEL 9.9 MG/DL (8.3-10.6); CREATININE FOR GFR 1.39 MG/DL (0.55-1.30); GLOMERULAR FILTRATION RATE 38.8 (>32); POTASSIUM SERUM 4.1 MMOL/L (3.5-5.1)
[2024-03-16] MEDS: BOOSTRIX VACCINE (TETANUS/DIPHTH/ACEL. PERTUSSIS) 0.5ML SYR IM.IMMUN ONE (12:51)
[2024-03-16] MEDS ORDERED: TRAM50TA2 PO (13:00)
[2024-03-16 13:45] VITALS: BP 168/74; TEMP 98.2; O2SAT 98
== END 2024-03-16 14:34 | disposition home or self-care (01) ==
LOC: M ED 08:09
DX: S01.111A Laceration without foreign body of right eyelid and periocular area, initial encounter (principal); S22.41XA Multiple fractures of ribs, right side, initial encounter for closed fracture; M50.30 Other cervical disc degeneration, unspecified cervical region; W22.8XXA Striking against or struck by other objects, initial encounter; Y92.009 Unspecified place in unspecified non-institutional (private) residence as the place of occurrence of the external cause; Y93.89 Activity, other specified; Y99.9 Unspecified external cause status; M47.896 Other spondylosis, lumbar region; Z79.82 Long term (current) use of aspirin; Z79.899 Other long term (current) drug therapy; Z88.2 Allergy status to sulfonamides; Z88.6 Allergy status to analgesic agent; Z88.8 Allergy status to other drugs, medicaments and biological substances
CPT/HCPCS: 12011; 70450; 70486; 71101; 72110; 72125; 73140; 80048; 85025; 90471; 90715; 96374; 96375; 99284; J2405

== ENCOUNTER 2024-03-21 09:21 | Emergency (ER) | payer MEDICARE, MEDICAID ==
[~2024-03-21] VITALS: Ht 157.5 cm; Wt 57.8 kg
[2024-03-21 09:59] VITALS: BP 118/55; TEMP 97; O2SAT 97
== END 2024-03-21 10:03 | disposition home or self-care (01) ==
LOC: M ED 09:21
DX: Z48.02 Encounter for removal of sutures (principal); I25.10 Atherosclerotic heart disease of native coronary artery without angina pectoris; I10 Essential (primary) hypertension; N18.30 Chronic kidney disease, stage 3 unspecified; J44.9 Chronic obstructive pulmonary disease, unspecified; M19.90 Unspecified osteoarthritis, unspecified site; M81.0 Age-related osteoporosis without current pathological fracture; M48.00 Spinal stenosis, site unspecified; I73.9 Peripheral vascular disease, unspecified; Z87.442 Personal history of urinary calculi; Z85.118 Personal history of other malignant neoplasm of bronchus and lung; Z79.82 Long term (current) use of aspirin; Z79.899 Other long term (current) drug therapy; Z88.2 Allergy status to sulfonamides; Z88.6 Allergy status to analgesic agent; Z88.0 Allergy status to penicillin; Z88.8 Allergy status to other drugs, medicaments and biological substances

== ENCOUNTER 2024-04-23 10:23 | Emergency (ER) | payer MEDICARE, MEDICAID ==
[~2024-04-23] VITALS: Ht 157.5 cm; Wt 58.2 kg
[2024-04-23] MEDS: LIDOCAINE 2% 5ML JELLY UROJET TOP ONE (10:35)
[2024-04-23 11:31] LABS: BASO % 0.5 % (0.0-1.0); EOS # 0.1 10^3/uL (0.0-0.5); EOS % 1.6 % (0.0-3.0); HEMATOCRIT 38.4 % (36.0-47.0); HEMOGLOBIN 12.7 g/dl (12.0-15.5); LYMPH # 1.5 10^3/uL (1.5-5.0); LYMPH % 23.8 % (24.0-44.0); MEAN CORPUSCULAR HEMOGLOBIN 30.8 pg (27.0-33.0); MEAN CORPUSCULAR HGB CONC 33.1 g/dl (32.0-36.5); MEAN CORPUSCULAR VOLUME 93.2 fl (80.0-96.0); MONO # 0.4 10^3/uL (0.0-0.8); MONO % 5.8 % (2.0-8.0); NEUTROPHILS # 4.2 10^3/uL (1.5-8.5); NEUTROPHILS % 67.8 % (36.0-66.0); PLATELET COUNT, AUTOMATED 238 10^3/uL (150-450); RED BLOOD COUNT 4.12 10^6/uL (4.00-5.40); WHITE BLOOD COUNT 6.2 10^3/uL (4.0-10.0)
[2024-04-23 11:36] LABS: ERYTHROCYTE SEDIMENTATION RATE 51 mm/hr (0-30)
[2024-04-23 11:37] LABS: VENOUS BASE EXCESS -1.2 (-2.0-2.0); VENOUS HCO3 23.9 MMOL/L (23.0-27.0); VENOUS O2 SATURATION 86.4 % (60.0-80.0); VENOUS PARTIAL PRESSURE CO2 41.6 mmHg (38.0-50.0); VENOUS PARTIAL PRESSURE O2 55.4 mmHg (30.0-50.0); VENOUS PH 7.378 UNITS (7.330-7.430); VENOUS STANDARD HCO3 23.3 MMOL/L; VENOUS TOTAL CO2 25.2 MMOL/L (24.0-28.0)
[2024-04-23] MEDS: NS (Normal Saline) 0.9% 1,000 ML IV SCH (11:40)
[2024-04-23 11:42] LABS: KETONE, URINE AUTO RFX NEGATIVE (NEGATIVE); NITRITE, URINE AUTO RFX NEGATIVE (NEGATIVE); RBC, URINE AUTO RFX 4 /HPF (0-3); SQUAM EPITHELIAL CELL UR AURFX 2 /HPF (0-6)
[2024-04-23 11:43] LABS: INR 0.97; PARTIAL THROMBOPLASTIN TIME 29.4 SECONDS (24.8-34.2); PROTHROMBIN TIME 13.2 SECONDS (12.5-14.5)
[2024-04-23 11:43] LABS: LEUKOCYTE ESTERASE UR AUTO RFX 2+ (NEGATIVE); WBC, URINE AUTO RFX 19 /HPF (0-3)
[2024-04-23 11:47] LABS: ETHYL ALCOHOL (ETHANOL) 0.003 % (0.000-0.010)
[2024-04-23 11:49] LABS: ALBUMIN 4.1 G/DL (3.2-5.2); ALKALINE PHOSPHATASE 94 U/L (35-104); ALT/SGPT 16 U/L (7.0-40); AST/SGOT 17 U/L (<34); BILIRUBIN,DIRECT 0.1 MG/DL (<0.4); BILIRUBIN,TOTAL 0.4 MG/DL (0.3-1.2); BLOOD UREA NITROGEN 30 MG/DL (9-23); C REACTIVE PROTEIN QUANTITATIV < 0.50 MG/DL (<1.0); CALCIUM LEVEL 10.1 MG/DL (8.3-10.6); CARBON DIOXIDE LEVEL 27 MMOL/L (20-31); CHLORIDE LEVEL 100 MMOL/L (98-107); CK-MB VALUE MASS < 1.0 NG/ML (<3.6); CPK CREATINE PHOSPHOKINASE 69 U/L (34-145); CREATININE FOR GFR 1.53 MG/DL (0.55-1.30); GLOMERULAR FILTRATION RATE 34.8 (>32); GLUCOSE, FASTING 89 MG/DL (74-106); MB/CK RELATIVE INDEX 1.44 (< OR =4); POTASSIUM SERUM 4.5 MMOL/L (3.5-5.1); SALICYLATE LEVEL < 3.0 MG/DL (<30); SODIUM LEVEL 140 MMOL/L (136-145); TOTAL PROTEIN 8.4 G/DL (5.7-8.2)
[2024-04-23 11:51] LABS: THYROID STIMULATING HORMONE 2.341 uIU/ML (0.55-4.78)
[2024-04-23 11:57] LABS: AMPHETAMINES LEVEL URINE NEGATIVE (NEGATIVE); BARBITURATES URINE NEGATIVE (NEGATIVE); BENZODIAZEPINES URINE NEGATIVE (NEGATIVE); CANNABINOIDS URINE NEGATIVE (NEGATIVE); COCAINE METABOLITE URINE NEGATIVE (NEGATIVE); METHADONE URINE NEGATIVE (NEGATIVE); OPIATES URINE NEGATIVE (NEGATIVE); PHENCYCLIDINE URINE NEGATIVE (NEGATIVE)
[2024-04-23] MEDS ORDERED: ISOVUE-370 76% 100ML VIAL As Ordered ONE (11:58)
[2024-04-23 12:01] LABS: PROCALCITONIN <0.04 ng/ml
[2024-04-23 12:13] LABS: CK-MB VALUE MASS < 1.0 NG/ML (<3.6); CPK CREATINE PHOSPHOKINASE 56 U/L (34-145); MB/CK RELATIVE INDEX 1.78 (< OR =4)
[2024-04-23] MEDS ORDERED: LEVO1TAB38 PO (14:23)
[2024-04-23] MEDS: LevoFLOXacin 500 MG TABLET PO ONE (14:33)
[2024-04-23 15:00] VITALS: BP 152/70
[2024-04-23 15:08] VITALS: TEMP 98.2; O2SAT 95
== END 2024-04-23 15:14 | disposition home or self-care (01) ==
LOC: EDBD 10:23 → M ED 10:23
DX: N39.0 Urinary tract infection, site not specified (principal); I48.91 Unspecified atrial fibrillation; I25.10 Atherosclerotic heart disease of native coronary artery without angina pectoris; I11.0 Hypertensive heart disease with heart failure; Z86.73 Personal history of transient ischemic attack (TIA), and cerebral infarction without residual deficits; I50.9 Heart failure, unspecified; J44.9 Chronic obstructive pulmonary disease, unspecified; G47.30 Sleep apnea, unspecified; Z95.5 Presence of coronary angioplasty implant and graft; Z88.2 Allergy status to sulfonamides; Z88.8 Allergy status to other drugs, medicaments and biological substances; Z88.6 Allergy status to analgesic agent; Z79.899 Other long term (current) drug therapy
CPT/HCPCS: 51701; 70450; 70496; 70498; 71045; 80047; 80048; 80076; 80143; 80307; 81001; 82077; 82140; 82550; 82553; 82803; 83605; 84145; 84439; 84443; 84484; 85025; 85610; 85652; 85730; 86140; 87040; 87088; 87186; 87486; 87581; 87633; 87798; 93005; 93041; 94760; 96360; 96361; 99285; Q9967

== ENCOUNTER → 2024-10-04 | Outpatient (CLI) | payer MEDICARE, MEDICAID ==
[~2024-10-04] MED LIST changes: +LIDO1ADH93 TOP; -LIDO5DIS41 TOP; -PRED50TA PO; +PRED50TA57 PO
[2024-10-04 15:36] LABS: PLATELET COUNT, AUTOMATED 233 10^3/uL (150-450)
[2024-10-04 16:07] LABS: ALT/SGPT 16.0 U/L (7.0-40); AST/SGOT 18.0 U/L (<34); CALCIUM LEVEL 10.1 MG/DL (8.3-10.6); CARBON DIOXIDE LEVEL 26.0 MMOL/L (20-31); CHLORIDE LEVEL 102.0 MMOL/L (98-107); CHOLESTEROL LEVEL 258.0 MG/DL (<200); CHOLESTEROL RISK RATIO 6.09 (<5); CREATININE FOR GFR 1.8 MG/DL (0.55-1.30); GLOMERULAR FILTRATION RATE 28.1 (>32); GLUCOSE,RANDOM 92.0 MG/DL (LESS THAN 200); LDL CHOLESTEROL 153.3 MG/DL (<100); NON-HDL-C 215.7 MG/DL; POTASSIUM SERUM 4.4 MMOL/L (3.5-5.1); SODIUM LEVEL 143.0 MMOL/L (136-145); TRIGLYCERIDES LEVEL 312.0 MG/DL (<150)
[2024-10-04 16:12] LABS: FREE T4 1.33 NG/DL (0.89-1.76)
[2024-10-04 18:35] LABS: ESTIMATED AVERAGE GLUCOSE 108.0 MG/DL (60-110)
== END ==
LOC: M WUC 10:46
DX: Z13.1 Encounter for screening for diabetes mellitus (principal); E07.9 Disorder of thyroid, unspecified; E78.00 Pure hypercholesterolemia, unspecified

== ENCOUNTER → 2024-10-25 | Outpatient (CLI) | payer MEDICARE, MEDICAID ==
[2024-10-25 14:39] LABS: THYROXINE (T4) 11.1 UG/DL (4.5-10.9)
[2024-10-25 14:42] LABS: VITAMIN B12 LEVEL 578.0 PG/ML (211-911)
[2024-10-25 14:51] LABS: T UPTAKE 26.9 % (22.5-37.0)
== END ==
LOC: M PLALAB 10:29
PROVIDERS: ATTEND Psychiatry & Neurology Neurology
DX: E53.8 Deficiency of other specified B group vitamins (principal); E03.9 Hypothyroidism, unspecified

== ENCOUNTER → 2024-12-13 | Outpatient (REF) | payer MEDICARE, MEDICAID | LOC: M LAB REF 17:25 | PROVIDERS: ATTEND Internal Medicine Nephrology | DX: N39.0 Urinary tract infection, site not specified (principal) ==